=== PATIENT | female | born 1995 | race Caucasian/White ===

== ENCOUNTER 2016-08-07 19:40 | Emergency (ER) | payer MEDICAID ==
[2016-08-07] MEDS ORDERED: Ativan 2 MG/1 ML VIAL IV ONE (20:03)
[2016-08-07] MEDS ORDERED: Sodium Chloride 0.9% 1000 ML 1,000 ML IV STA (20:03)
[2016-08-07] MEDS ORDERED: Sodium Chloride 0.9% 1000 ML 1,000 ML ONE (20:14)
[2016-08-07] MEDS ORDERED: Ativan 2 MG/1 ML VIAL ONE (20:14)
[2016-08-07 20:24] LABS: VBG CARBOXYHEMOGLOBIN 7.6 % T HGB (0.0-6.9); VBG HCO3- 25.5 meq/L (22-28); VBG HEMOGLOBIN 11.6; VBG O2 SATURATION 93.7 (95-100); VBG POTASSIUM 4.3 (3.5-5.1); VBG pH 7.47 (7.32-7.42)
[2016-08-07 20:28] LABS: BASOPHIL % 0.3 % (0.0-0.4); Eosinophil % 2.1 % (0.00-5.0); Granulocytes % 67.7 % (36.0-66.0); Lymphocytes % 23.6 % (24.0-44.0); Mean Cell Volume 80.2 fl (78-100); Mean Platelet Volume 10.9 fl (6-9.5); Monocytes % 6.3 % (0.0-12.0); Platelet Count 235 K/mm3 (150-450); Red Blood Count 4.84 M/mm3 (4.1-5.4); Red Cell Distribution Width 14.4 % (11.5-14.0); White Blood Count 11.7 K/mm3 (4.0-10.5)
[2016-08-07 20:31] LABS: Mean Corpuscular Hemoglobin 24.3 pg (26-32)
[2016-08-07 20:41] LABS: Collection Type CATH
[2016-08-07 20:42] LABS: COMPLETE URINE MICROSCOPIC? NO; Ph 8.5 (5-6)
[2016-08-07 20:54] LABS: ALBUMIN 3.9 g/dL (3.4-5.0); BLOOD UREA NITROGEN 6 mg/dL (9-20); Potassium 4.3 mEq/L (3.5-5.1); SGOT/AST 15 U/L (15-37); SGPT/ALT 8 U/L (12-78)
[2016-08-07 21:08] LABS: ALKALINE PHOSPHATASE 94 U/L (46-116); ANION GAP 16.9 MEQ/L (5-15); BILIRUBIN,TOTAL 0.3 mg/dL (0.2-1.0); CHLORIDE 105 mEq/L (98-107); Carbon Dioxide 22.8 mEq/L (21-32); Glucose 83 MG/DL (70-110); SODIUM 140 mEq/L (136-145); Total Protein 7.6 gm/dL (6.4-8.2)
[2016-08-07 21:32] LABS: ACETAMINOPHEN < 2.0 ug/ml (10-30)
--- NOTE | 2016-08-07 22:57 | ERPHSYRPT ---
- History of Present Illness Time Seen by Provider: 08/07/16 20:03 Source: patient, family (mother) Patient Subjective Stated Complaint: per pt's mother, she was having some anxiety and began staring and not speaking. follows commands. Triage Nursing Assessment: pt opens eyes to voice. follows commands but does not speak. becomes tearful at times and respirations increase. respirations easy at this time. lungs cta. Physician History: CC: anxiety Hx: 20 y/o patient of Dr Mathur. She has young baby at home. She was at home and had spell of anxiety and some staring off into space. She has had similar spells in the past. Here she asked what happened to her. No headache, injury, fever or chills. No chest or abd pain. No V/D. No hx of seizures in the past. Severity: moderate Allergies/Adverse Reactions: Penicillins Allergy (Mild, Verified 08/07/16 20:08) FAMILY IS ALLERGIC questionable allergy parents and brother allergic, has never tried it Home Medications: No Reportable Medications [No Reported Medications] 04/09/16 [History] Hx Tetanus, Diphtheria Vaccination/Date Given: Yes Hx Influenza Vaccination/Date Given: No Hx Pneumococcal Vaccination/Date Given: No Immunizations Up to Date: Yes - Review of Systems Constitutional: No Fever, No Chills Eyes: No Vision Changes Ears, Nose, & Throat: No Symptoms Respiratory: No Cough, No Dyspnea Cardiac: No Chest Pain, No Palpitations, No Syncope Abdominal/Gastrointestinal: No Abdominal Pain, No Nausea, No Vomiting, No Diarrhea Genitourinary Symptoms: No Symptoms Musculoskeletal: No Back Pain, No Neck Pain, No Fall, No Injury Skin: No Rash Neurological: No Dizziness, No Focal Weakness, No Headache, No Parasthesia Psychological: Anxiety, Emotional Lability, No Suicidal Ideations, No Homicidal Ideations All Other Systems: Reviewed and Negative - Past Medical History Pertinent Past Medical History: Yes Neurological History: No Pertinent History ENT History: No Pertinent History Cardiac History: No Pertinent History Respiratory History: No Pertinent History Endocrine Medical History: No Pertinent History Musculoskeletal History: No Pertinent History GI Medical History: No Pertinent History History: No Pertinent History Psycho-Social History: Anxiety Female Reproductive Disorders: No Pertinent History Other Medical History: UTI - Past Surgical History Past Surgical History: Yes Neuro Surgical History: No Pertinent History Cardiac: No Pertinent History Respiratory: No Pertinent History Gastrointestinal: Appendectomy, Cholecystectomy Genitourinary: No Pertinent History Musculoskeletal: No Pertinent History Female Surgical History: Section Other Surgical History: tubes in ears - Social History Smoking Status: Current every day smoker How long have you smoked: YRS Exposure to second hand smoke: No Drug Use: none Patient Lives Alone: No - Female History Hx Last Menstrual Period: 3-4 days ago Hx Now: No - Nursing Vital Signs Nursing Vital Signs: Initial Vital Signs Temperature 98.7 F Temperature Source Oral Pulse Rate 74 Respiratory Rate 18 Blood Pressure 88/55 - Physical Exam General Appearance: alert, other (arrived very anxious. Calmed and is now improved and conversant) Eye Exam: PERRL/EOMI Ears, Nose, Throat Exam: normal ENT inspection, moist mucous membranes Neck Exam: normal inspection, non-tender, supple Respiratory Exam: normal breath sounds, lungs clear Cardiovascular Exam: regular rate/rhythm, No murmur Gastrointestinal/Abdomen Exam: soft, No tenderness, No distention Back Exam: normal inspection Extremity Exam: normal inspection, normal range of motion Neurologic Exam: alert, 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, cooperative, sensation nml, No motor deficits Skin Exam: warm, dry, No rash SpO2 Interpretation: normal SpO2: 98 Oxygen Delivery: Room Air - Course Nursing assessment & vital signs reviewed: Yes EKG Interpreted by Me: RATE (73), Sinus Rhythm, NORMAL AXIS, NORMAL INTERVALS ( [id number]), NORMAL QRS, NORMAL ST-T - CT Exams head CT Interpretation: Negative, Tele-radiologist Report Ordered Tests: Active Orders 24 hr Category Date Time Status Accucheck STAT Care 08/07/16 20:03 Active Belt Operator STAT Care 08/07/16 20:03 Active Cath for Specimen-Straight STAT Care 08/07/16 20:03 Active EKG-ER Only STAT Care 08/07/16 20:03 Active IV Insertion STAT Care 08/07/16 20:03 Active HEAD WITHOUT CONTRAST [CT] Stat Exams 08/07/16 20:04 Taken ACETAMINOPHEN Stat Lab 08/07/16 20:05 Completed CBC W DIFF Stat Lab 08/07/16 20:05 Completed CMP Stat Lab 08/07/16 20:05 Completed HCG,QUALITATIVE URINE Stat Lab 08/07/16 20:20 Completed SALICYLATE Stat Lab 08/07/16 20:05 Completed UA Stat Lab 08/07/16 20:20 Completed Urine Triage Profile Stat Lab 08/07/16 20:20 Completed VENOUS BLOOD GAS Urgent Lab 08/07/16 20:20 Completed Medication Summary Discontinued Medications Generic Name Dose Route Start Last Admin Trade Name Jody PRN Reason Stop Dose Admin Sodium Chloride 1,000 mls @ 999 mls/hr 08/07/16 20:03 08/07/16 20:16 Sodium Chloride 0.9% 1000 Ml IV 08/07/16 21:03 999 mls/hr .Q1H1M STA Administration Sodium Chloride Confirm 08/07/16 20:14 Sodium Chloride 0.9% 1000 Ml Administered 08/07/16 20:15 Dose 1,000 mls @ ud .ROUTE .STK-MED ONE Lorazepam 0.5 mg 08/07/16 20:03 08/07/16 20:16 Ativan 2 Mg/1 Ml Vial IV 08/07/16 20:04 0.5 mg STAT ONE Administration Lorazepam Confirm 08/07/16 20:14 Ativan 2 Mg/1 Ml Vial Administered 08/07/16 20:15 Dose 2 mg .ROUTE .STK-MED ONE Lab/Rad Data: Laboratory Result Diagrams 08/07/16 20:05 08/07/16 20:05 Laboratory Results 08/07/16 08/07/16 08/07/16 Range/Units 20:20 20:20 20:20 WBC (4.0-10.5) K/mm3 RBC (4.1-5.4) M/mm3 Hgb (12.0-16.0) gm/dl Hct (35-47) % MCV (78-100) fl MCH (26-32) pg MCHC (32-36) g/dl RDW (11.5-14.0) % Plt Count (150-450) K/mm3 MPV (6-9.5) fl Gran % (36.0-66.0) % Lymphocytes % (24.0-44.0) % Monocytes % (0.0-12.0) % Eosinophils % (0.00-5.0) % Basophils % (0.0-0.4) % Basophils # (0-0.4) VBG pH 7.47 H (7.32-7.42) VBG pCO2 at Pat Temp 35 L (42-55) mm/Hg VBG pO2 at Pat Temp 55 H (25-40) mm/Hg VBG HCO3 25.5 (22-28) meq/L VBG O2 Sat (Brittani) 93.7 L (95-100) VBG Base Excess 2.0 (-2.0-2.0) VBG Hemoglobin 11.6 VBG Carboxyhemoglobin 7.6 H* (0.0-6.9) % T HGB POC Potassium 4.3 (3.5-5.1) Sodium (136-145) mEq/L Potassium (3.5-5.1) mEq/L Chloride (98-107) mEq/L Carbon Dioxide (21-32) mEq/L Anion Gap (5-15) MEQ/L BUN (9-20) mg/dL Creatinine (0.55-1.30) mg/dl Estimated GFR ML/MIN Glucose (70-110) MG/DL Calcium (8.5-10.1) mg/dL Total Bilirubin (0.2-1.0) mg/dL AST (15-37) U/L ALT (12-78) U/L Alkaline Phosphatase (46-116) U/L Serum Total Protein (6.4-8.2) gm/dL Albumin (3.4-5.0) g/dL Ur Collection Type Urine Color (YELLOW) Urine Appearance (CLEAR) Urine pH (5-6) Ur Specific [place] (1.005-1.025) Urine Protein (Negative) Urine Glucose (UA) (NEGATIVE) mg/dL Urine Ketones (NEGATIVE) Urine Nitrite (NEGATIVE) Urine Bilirubin (NEGATIVE) Urine Urobilinogen (0-1) mg/dL Urine WBC (Auto) (NEGATIVE) Urine RBC (Auto) (0-5) Alexis/ul Urine HCG, Qual NEGATIVE (Negative) Salicylates (2.8-20.0) mg/dl Urine Opiates Level NEG. (NEGATIVE) Ur Methadone NEG. (NEGATIVE) Acetaminophen (10-30) ug/ml Urine Barbiturates NEG. (NEGATIVE) Ur Phencyclidine (PCP) NEG. (NEGATIVE) Urine Amphetamine NEG. (NEGATIVE) U Benzodiazepine Level NEG. (NEGATIVE) Urine Cocaine NEG. (NEGATIVE) Urine Marijuana (THC) NEG. (NEGATIVE) Specimen Received 08/07/16 08/07/16 08/07/16 Range/Units 20:20 20:05 20:05 WBC 11.7 H (4.0-10.5) K/mm3 RBC 4.84 (4.1-5.4) M/mm3 Hgb 11.8 L (12.0-16.0) gm/dl Hct 38.8 (35-47) % MCV 80.2 (78-100) fl MCH 24.3 L (26-32) pg MCHC 30.4 L (32-36) g/dl RDW 14.4 H (11.5-14.0) % Plt Count 235 (150-450) K/mm3 MPV 10.9 H (6-9.5) fl Gran % 67.7 H (36.0-66.0) % Lymphocytes % 23.6 L (24.0-44.0) % Monocytes % 6.3 (0.0-12.0) % Eosinophils % 2.1 (0.00-5.0) % Basophils % 0.3 (0.0-0.4) % Basophils # 0.03 (0-0.4) VBG pH (7.32-7.42) VBG pCO2 at Pat Temp (42-55) mm/Hg VBG pO2 at Pat Temp (25-40) mm/Hg VBG HCO3 (22-28) meq/L VBG O2 Sat (Brittani) (95-100) VBG Base Excess (-2.0-2.0) VBG Hemoglobin VBG Carboxyhemoglobin (0.0-6.9) % T HGB POC Potassium (3.5-5.1) Sodium 140 (136-145) mEq/L Potassium 4.3 (3.5-5.1) mEq/L Chloride 105 (98-107) mEq/L Carbon Dioxide 22.8 (21-32) mEq/L Anion Gap 16.9 H (5-15) MEQ/L BUN 6 L (9-20) mg/dL Creatinine 0.58 (0.55-1.30) mg/dl Estimated GFR > 60 ML/MIN Glucose 83 (70-110) MG/DL Calcium 9.0 (8.5-10.1) mg/dL Total Bilirubin 0.3 (0.2-1.0) mg/dL AST 15 (15-37) U/L ALT 8 L (12-78) U/L Alkaline Phosphatase 94 (46-116) U/L Serum Total Protein 7.6 (6.4-8.2) gm/dL Albumin 3.9 (3.4-5.0) g/dL Ur Collection Type CATH Urine Color YELLOW (YELLOW) Urine Appearance CLOUDY (CLEAR) Urine pH 8.5 (5-6) Ur Specific [place] 1.020 (1.005-1.025) Urine Protein NEGATIVE (Negative) Urine Glucose (UA) NEGATIVE (NEGATIVE) mg/dL Urine Ketones NEGATIVE (NEGATIVE) Urine Nitrite NEGATIVE (NEGATIVE) Urine Bilirubin NEGATIVE (NEGATIVE) Urine Urobilinogen 1 (0-1) mg/dL Urine WBC (Auto) NEGATIVE (NEGATIVE) Urine RBC (Auto) NEGATIVE (0-5) Alexis/ul Urine HCG, Qual (Negative) Salicylates < 2.8 L (2.8-20.0) mg/dl Urine Opiates Level (NEGATIVE) Ur Methadone (NEGATIVE) Acetaminophen < 2.0 L (10-30) ug/ml Urine Barbiturates (NEGATIVE) Ur Phencyclidine (PCP) (NEGATIVE) Urine Amphetamine (NEGATIVE) U Benzodiazepine Level (NEGATIVE) Urine Cocaine (NEGATIVE) Urine Marijuana (THC) (NEGATIVE) Specimen Received 08/07/16 2030 - Progress Progress Note: 08/07/16 22:55 Pt was given IVF bolus and ativan. She calmed. States she aches all over. No focal problems. Uncertain if anxiety or seizure but seems likely anxiety. Will release to follow with Dr Mathur and her mother will stay with her and baby. Seizure instructions given. Counseled pt/family regarding: lab results, diagnosis, need for follow-up, rad results - Departure Time of Disposition: 22:56 Departure Disposition: Home Clinical Impression: Anxiety, rule out seizure Condition: Fair Critical Care Time: No Referrals: RAHEEL MATHUR [Primary Care Provider] - Instructions: Anxiety -- Adult, Seizure (Not Epilepsy/Seizure Disorder) Additional Instructions: No driving, climbing, swimming. Someone to stay with you and to care for your baby. Call tomorrow for Dr Mathur follow up. REturn for problems or concerns.
[2016-08-07 23:06] VITALS: PULSE 69
[2016-08-07 23:08] VITALS: BP 106/70; O2SAT 100
--- NOTE | 2016-08-08 09:59 | XRAY ---
Indication: Left-sided headache and altered mental status. Multiple contiguous axial images obtained through the head without contrast. Comparison: None Normal appearing brain parenchyma, ventricles, and bony calvarium. Visualized paranasal sinuses and mastoid air cells are pneumatized and clear. Impression: Normal CT head without contrast exam. CT DI is 71.05
== END 2016-08-07 23:12 | disposition home or self-care (01) ==
LOC: ED 19:40
DX: F41.9 Anxiety disorder, unspecified (principal)
CPT/HCPCS: 36000; 36415; 70450; 80053; 80307; 81002; 82805; 82962; 84703; 85025; 93005; 93041; 96360; 96374; 99284; J2060; P9612

== ENCOUNTER 2017-04-07 14:32 | Emergency (ER) | payer SELFPAY ==
[2017-04-07] MEDS ORDERED: Sodium Chloride 0.9% 1000 ML 1,000 ML IV STA (14:48)
[2017-04-07] MEDS ORDERED: Vistaril 50 MG/ML IM ONE ×3 (14:48→15:10)
--- NOTE | 2017-04-07 14:52 | ERPHSYRPT ---
- History of Present Illness Time Seen by Provider: 04/07/17 14:37 Source: patient Patient Subjective Stated Complaint: "I started having cp yesterday. it is sharp and comes and goes. it is on the right side on my chest. i have a hx of slow hr and anxiety." Triage Nursing Assessment: aox3, breathing easy unlabored, skin pink warm dry, steady gait Physician History: CC: chest pain Hx: Sharp chest pain. Not short of breath. Some tingling in extr. A lot of stress with job, finances. Prior hx anxiety. No hx of heart disease or VTE disease. LMp one week ago. No N/V/D. No abd pain. Timing/Duration: yesterday Severity: moderate Allergies/Adverse Reactions: Penicillins Allergy (Mild, Verified 04/07/17 14:45) FAMILY IS ALLERGIC questionable allergy parents and brother allergic, has never tried it Home Medications: Sertraline HCl [Zoloft] 25 mg PO DAILY 04/07/17 [History] Hx Tetanus, Diphtheria Vaccination/Date Given: Yes Hx Influenza Vaccination/Date Given: No Hx Pneumococcal Vaccination/Date Given: No - Review of Systems Constitutional: No Fever, No Chills Eyes: No Symptoms Ears, Nose, & Throat: No Symptoms Respiratory: No Cough, No Dyspnea Cardiac: Chest Pain, No Palpitations, No Syncope Abdominal/Gastrointestinal: No Abdominal Pain, No Nausea, No Vomiting, No Diarrhea Genitourinary Symptoms: No Dysuria Skin: No Rash Neurological: Parasthesia (in extremities), No Headache All Other Systems: Reviewed and Negative - Past Medical History Pertinent Past Medical History: Yes Neurological History: No Pertinent History ENT History: No Pertinent History Cardiac History: No Pertinent History Respiratory History: No Pertinent History Endocrine Medical History: No Pertinent History Musculoskeletal History: No Pertinent History GI Medical History: No Pertinent History History: No Pertinent History Psycho-Social History: Anxiety Female Reproductive Disorders: No Pertinent History Other Medical History: UTI - Past Surgical History Past Surgical History: Yes Neuro Surgical History: No Pertinent History Cardiac: No Pertinent History Respiratory: No Pertinent History Gastrointestinal: Appendectomy, Cholecystectomy Genitourinary: No Pertinent History Musculoskeletal: No Pertinent History Female Surgical History: Section Other Surgical History: tubes in ears - Social History Smoking Status: Current every day smoker How long have you smoked: YRS Exposure to second hand smoke: No Drug Use: none Patient Lives Alone: No - Female History Hx Last Menstrual Period: 03/31/17 Hx Now: No - Nursing Vital Signs Nursing Vital Signs: Initial Vital Signs Pulse Rate 70 04/07/17 14:40 Respiratory Rate 12 04/07/17 14:40 Blood Pressure 115/63 04/07/17 14:40 O2 Sat by Pulse Oximetry 97 04/07/17 14:40 Pain Scale Pain Intensity 6 - Physical Exam General Appearance: alert, thin Eye Exam: PERRL/EOMI Ears, Nose, Throat Exam: normal ENT inspection, moist mucous membranes Neck Exam: normal inspection, non-tender, supple Respiratory Exam: normal breath sounds, lungs clear Cardiovascular Exam: regular rate/rhythm, No murmur, No friction rub, No gallop Gastrointestinal/Abdomen Exam: soft, No tenderness, No distention Back Exam: normal inspection, normal range of motion Extremity Exam: normal inspection, normal range of motion Neurologic Exam: alert, 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, cooperative, sensation nml, No motor deficits Skin Exam: warm, dry, No rash SpO2 Interpretation: normal SpO2: 97 Oxygen Delivery: Room Air - Course Nursing assessment & vital signs reviewed: Yes EKG Interpreted by Me: RATE (77), Sinus Rhythm, NORMAL AXIS, NORMAL INTERVALS ( QTc 421), NORMAL QRS, NORMAL ST-T - Radiology Exams cxr X-ray Interpretation: Reviewed by me, Negative Ordered Tests: Active Orders 24 hr Category Date Time Status Science Education Professor STAT Care 04/07/17 14:49 Active Clean Catch Urine Specimen STAT Care 04/07/17 14:48 Active EKG-ER Only STAT Care 04/07/17 14:48 Active IV Insertion STAT Care 04/07/17 14:48 Active CHEST 2 VIEWS (PA AND LAT) Stat Exams 04/07/17 14:49 Taken CBC W DIFF Stat Lab 04/07/17 14:35 Completed CMP Stat Lab 04/07/17 14:35 Completed HCG QUALITATIVE,SERUM Stat Lab 04/07/17 14:35 Completed UA W/RFX UR CULTURE Stat Lab 04/07/17 15:56 Completed Urine Triage Profile Stat Lab 04/07/17 15:56 Completed Medication Summary Discontinued Medications Generic Name Dose Route Start Last Admin Trade Name Freq PRN Reason Stop Dose Admin Hydroxyzine HCl 50 mg 04/07/17 14:48 04/07/17 15:25 Vistaril 50 Mg/Ml IM 04/07/17 14:49 50 mg STAT ONE Administration Hydroxyzine HCl Confirm 04/07/17 14:58 Vistaril 50 Mg/Ml Administered 04/07/17 14:59 Dose 50 mg IM .STK-MED ONE Hydroxyzine HCl Confirm 04/07/17 15:10 Vistaril 50 Mg/Ml Administered 04/07/17 15:11 Dose 50 mg IM .STK-MED ONE Sodium Chloride 1,000 mls @ 999 mls/hr 04/07/17 14:48 04/07/17 15:25 Sodium Chloride 0.9% 1000 Ml IV 04/07/17 15:48 999 mls/hr .Q1H1M STA Administration Sodium Chloride Confirm 04/07/17 14:58 Sodium Chloride 0.9% 1000 Ml Administered 04/07/17 14:59 Dose 1,000 mls @ ud .ROUTE .STK-MED ONE Sodium Chloride Confirm 04/07/17 15:10 Sodium Chloride 0.9% 1000 Ml Administered 04/07/17 15:11 Dose 1,000 mls @ ud .ROUTE .STK-MED ONE Lab/Rad Data: Laboratory Result Diagrams 04/07/17 14:35 04/07/17 14:35 Laboratory Results 04/07/17 04/07/17 04/07/17 Range/Units 15:56 15:56 14:35 WBC (4.0-10.5) K/mm3 RBC (4.1-5.4) M/mm3 Hgb (12.0-16.0) gm/dl Hct (35-47) % MCV (78-100) fl MCH (26-32) pg MCHC (32-36) g/dl RDW (11.5-14.0) % Plt Count (150-450) K/mm3 MPV (6-9.5) fl Gran % (36.0-66.0) % Lymphocytes % (24.0-44.0) % Monocytes % (0.0-12.0) % Eosinophils % (0.00-5.0) % Basophils % (0.0-0.4) % Basophils # (0-0.4) Sodium (136-145) mEq/L Potassium (3.5-5.1) mEq/L Chloride (98-107) mEq/L Carbon Dioxide (21-32) mEq/L Anion Gap (5-15) MEQ/L BUN (9-20) mg/dL Creatinine (0.55-1.30) mg/dl Estimated GFR ML/MIN Glucose (70-110) MG/DL Calcium (8.5-10.1) mg/dL Total Bilirubin (0.2-1.0) mg/dL AST (15-37) U/L ALT (12-78) U/L Alkaline Phosphatase (46-116) U/L Serum Total Protein (6.4-8.2) gm/dL Albumin (3.4-5.0) g/dL Serum , Qual NEGATIVE (Negative) Ur Collection Type CLEAN CATCH Urine Color YELLOW (YELLOW) Urine Appearance CLEAR (CLEAR) Urine pH 7.5 (5-6) Ur Specific [place] 1.005 (1.005-1.025) Urine Protein NEGATIVE (Negative) Urine Ketones NEGATIVE (NEGATIVE) Urine Blood NEGATIVE (0-5) Alexis/ul Urine Nitrite NEGATIVE (NEGATIVE) Urine Bilirubin NEGATIVE (NEGATIVE) Urine Urobilinogen 4 (0-1) mg/dL Ur Leukocyte Esterase NEGATIVE (NEGATIVE) Urine Glucose NEGATIVE (NEGATIVE) mg/dL Urine Opiates Level NEG. (NEGATIVE) Ur Methadone NEG. (NEGATIVE) Urine Barbiturates NEG. (NEGATIVE) Ur Phencyclidine (PCP) NEG. (NEGATIVE) Urine Amphetamine NEG. (NEGATIVE) U Benzodiazepine Level NEG. (NEGATIVE) Urine Cocaine NEG. (NEGATIVE) Urine Marijuana (THC) POS. (NEGATIVE) Specimen Received 04/07/17 1500 04/07/17 04/07/17 Range/Units 14:35 14:35 WBC 11.6 H (4.0-10.5) K/mm3 RBC 4.74 (4.1-5.4) M/mm3 Hgb 13.0 (12.0-16.0) gm/dl Hct 40.8 (35-47) % MCV 86.1 (78-100) fl MCH 27.4 (26-32) pg MCHC 31.9 L (32-36) g/dl RDW 14.8 H (11.5-14.0) % Plt Count 242 (150-450) K/mm3 MPV 10.8 H (6-9.5) fl Gran % 65.3 (36.0-66.0) % Lymphocytes % 19.3 L (24.0-44.0) % Monocytes % 6.7 (0.0-12.0) % Eosinophils % 8.3 H (0.00-5.0) % Basophils % 0.4 (0.0-0.4) % Basophils # 0.05 (0-0.4) Sodium 136 (136-145) mEq/L Potassium 4.0 (3.5-5.1) mEq/L Chloride 104 (98-107) mEq/L Carbon Dioxide 23.8 (21-32) mEq/L Anion Gap 12.6 (5-15) MEQ/L BUN 6 L (9-20) mg/dL Creatinine 0.80 (0.55-1.30) mg/dl Estimated GFR > 60 ML/MIN Glucose 102 (70-110) MG/DL Calcium 9.2 (8.5-10.1) mg/dL Total Bilirubin 0.50 (0.2-1.0) mg/dL AST 10 L (15-37) U/L ALT 10 L (12-78) U/L Alkaline Phosphatase 87 (46-116) U/L Serum Total Protein 7.3 (6.4-8.2) gm/dL Albumin 4.1 (3.4-5.0) g/dL Serum , Qual (Negative) Ur Collection Type Urine Color (YELLOW) Urine Appearance (CLEAR) Urine pH (5-6) Ur Specific [place] (1.005-1.025) Urine Protein (Negative) Urine Ketones (NEGATIVE) Urine Blood (0-5) Alexis/ul Urine Nitrite (NEGATIVE) Urine Bilirubin (NEGATIVE) Urine Urobilinogen (0-1) mg/dL Ur Leukocyte Esterase (NEGATIVE) Urine Glucose (NEGATIVE) mg/dL Urine Opiates Level (NEGATIVE) Ur Methadone (NEGATIVE) Urine Barbiturates (NEGATIVE) Ur Phencyclidine (PCP) (NEGATIVE) Urine Amphetamine (NEGATIVE) U Benzodiazepine Level (NEGATIVE) Urine Cocaine (NEGATIVE) Urine Marijuana (THC) (NEGATIVE) Specimen Received - Progress Progress Note: 04/07/17 14:52 PERC negative. 04/07/17 16:12 She feels some better. She has some degree of anxiety. Advised follow up with Dr Mathur. Rx hydroxzyzine as needed. Counseled pt/family regarding: lab results, diagnosis, need for follow-up, rad results - Departure Time of Disposition: 16:13 Departure Disposition: Home Clinical Impression: Anxiety Chest pain Qualifiers: Chest pain type: other chest pain Qualified Code(s): R07.89 - Other chest pain ; R07.8 - Other chest pain Condition: Stable Critical Care Time: No Referrals: RAHEEL MATHUR [Primary Care Provider] - Instructions: Atypical Chest Pain, Anxiety -- Adult Additional Instructions: No driving today. Rx hydroxyzine for anxiety. Follow up this week with Dr Mathur. Ibuprofen if needed for discomfort. Prescriptions: Hydroxyzine HCl 25 mg [Atarax 25 mg] 25 mg PO Q6H PRN PRN #14 tablet PRN Reason: rest/anxiety
[2017-04-07] MEDS ORDERED: Sodium Chloride 0.9% 1000 ML 0 ML ONE (14:58)
[2017-04-07 15:05] LABS: BASOPHIL % 0.4 % (0.0-0.4); Eosinophil % 8.3 % (0.00-5.0); Granulocytes % 65.3 % (36.0-66.0); Lymphocytes % 19.3 % (24.0-44.0); Mean Cell Volume 86.1 fl (78-100); Mean Corpuscular Hemoglobin 27.4 pg (26-32); Mean Platelet Volume 10.8 fl (6-9.5); Monocytes % 6.7 % (0.0-12.0); Platelet Count 242 K/mm3 (150-450); Red Blood Count 4.74 M/mm3 (4.1-5.4); Red Cell Distribution Width 14.8 % (11.5-14.0); White Blood Count 11.6 K/mm3 (4.0-10.5)
[2017-04-07] MEDS ORDERED: Sodium Chloride 0.9% 1000 ML 1,000 ML ONE (15:10)
[2017-04-07 15:25] LABS: ALBUMIN 4.1 g/dL (3.4-5.0); ALKALINE PHOSPHATASE 87 U/L (46-116); ANION GAP 12.6 MEQ/L (5-15); BLOOD UREA NITROGEN 6 mg/dL (9-20); CHLORIDE 104 mEq/L (98-107); Carbon Dioxide 23.8 mEq/L (21-32); Glucose 102 MG/DL (70-110); SGOT/AST 10 U/L (15-37); SGPT/ALT 10 U/L (12-78); SODIUM 136 mEq/L (136-145); Total Protein 7.3 gm/dL (6.4-8.2)
[2017-04-07 15:57] VITALS: BP 112/84; PULSE 60
[2017-04-07 16:08] LABS: Collection Type CLEAN CATCH
[2017-04-07 16:09] LABS: ADD URINE CULTURE? NO (NO); Bilirubin NEGATIVE (NEGATIVE); Blood NEGATIVE Ery/ul (0-5); COMPLETE URINE MICROSCOPIC? NO; Glucose NEGATIVE (NEGATIVE); Leukocyte Esterase NEGATIVE (NEGATIVE)
[2017-04-07 16:15] VITALS: O2SAT 97
--- NOTE | 2017-04-07 21:20 | XRAY ---
Indication: Chest pain. Comparison: October 31, 2012. PA/lateral chest demonstrates normal heart, lungs, and bony thorax.
== END 2017-04-07 16:19 | disposition home or self-care (01) ==
LOC: ED 14:32
DX: F41.9 Anxiety disorder, unspecified (principal); R07.89 Other chest pain
CPT/HCPCS: 36000; 36415; 71020; 80053; 80307; 81002; 84703; 85025; 93005; 93041; 96360; 96372; 99284; 99285; J3410

== ENCOUNTER 2017-05-09 21:55 | Emergency (ER) | payer SELFPAY ==
--- NOTE | 2017-05-09 22:27 | ERPHSYRPT ---
- History of Present Illness Time Seen by Provider: 05/09/17 22:27 Source: patient Exam Limitations: no limitations Patient Subjective Stated Complaint: pt states she has been having lower back pain and "pregnacy symptoms" for a few weeks. states she has tenderness in her breasts, lack of energy, increased urination, and no period last month. states she has had a mirena for 1 year with no Triage Nursing Assessment: pt alert and oreinted, asnwers questions approp. pt ambulatory with steady gait noted. respirations nonlabored with lungs cta. pt reports tenderness to lower back with light palpation, worse on lt. abd soft and nontender, bowel sounds present x4 quads. Physician History: 21-year-old female came to the emergency room with complaining of low back pain , breast tenderness, nausea and abdominal discomfort. She fell like she might be . Denies any other symptoms. Timing/Duration: week(s) Allergies/Adverse Reactions: Penicillins Allergy (Mild, Verified 04/07/17 14:45) FAMILY IS ALLERGIC questionable allergy parents and brother allergic, has never tried it Home Medications: Sertraline HCl [Zoloft] 25 mg PO DAILY 04/07/17 [History] Hx Tetanus, Diphtheria Vaccination/Date Given: Yes Hx Influenza Vaccination/Date Given: No Hx Pneumococcal Vaccination/Date Given: No Immunizations Up to Date: Yes - Review of Systems Constitutional: No Fever, No Chills Eyes: No Symptoms Ears, Nose, & Throat: No Symptoms Respiratory: No Cough, No Dyspnea Cardiac: No Chest Pain, No Edema, No Syncope Abdominal/Gastrointestinal: Nausea, No Abdominal Pain, No Vomiting, No Diarrhea Genitourinary Symptoms: No Dysuria, No Flank Pain, No Menorrhagia, No Vaginal Bleeding, No Vaginal Discharge, No Vaginal Itching Musculoskeletal: Back Pain, No Neck Pain Skin: No Rash Neurological: No Dizziness, No Focal Weakness, No Sensory Changes Psychological: No Symptoms Endocrine: No Symptoms All Other Systems: Reviewed and Negative - Past Medical History Pertinent Past Medical History: Yes Neurological History: No Pertinent History ENT History: No Pertinent History Cardiac History: No Pertinent History Respiratory History: No Pertinent History Endocrine Medical History: No Pertinent History Musculoskeletal History: No Pertinent History GI Medical History: No Pertinent History History: No Pertinent History Psycho-Social History: Anxiety Female Reproductive Disorders: No Pertinent History Other Medical History: UTI - Past Surgical History Past Surgical History: Yes Neuro Surgical History: No Pertinent History Cardiac: No Pertinent History Respiratory: No Pertinent History Gastrointestinal: Appendectomy, Cholecystectomy Genitourinary: No Pertinent History Musculoskeletal: No Pertinent History Female Surgical History: Section Other Surgical History: tubes in ears - Social History Smoking Status: Current every day smoker How long have you smoked: YRS Exposure to second hand smoke: No Drug Use: none Patient Lives Alone: No - Female History Hx Last Menstrual Period: march Hx Now: No - Nursing Vital Signs Nursing Vital Signs: Initial Vital Signs Temperature 98.1 F 05/09/17 22:03 Pulse Rate 93 H 05/09/17 22:03 Respiratory Rate 18 05/09/17 22:03 Blood Pressure 118/68 05/09/17 22:03 O2 Sat by Pulse Oximetry 99 05/09/17 22:03 Pain Scale Pain Intensity [Lower Back] 4 Pain Intensity 4 - Physical Exam General Appearance: no apparent distress, alert Eye Exam: PERRL/EOMI, eyes nml inspection Neck Exam: normal inspection, non-tender, supple, full range of motion, No meningismus, No midline tenderness Respiratory Exam: normal breath sounds, lungs clear, No respiratory distress Cardiovascular Exam: regular rate/rhythm, normal heart sounds Gastrointestinal Exam: soft, No tenderness, No mass Extremity Exam: normal inspection, normal range of motion, No calf tenderness, No pedal edema Neurologic Exam: alert, 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, cooperative, 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 tested, normal mood/affect, nml station & gait, sensation nml, No motor deficits Skin Exam: normal color, warm, dry, No rash SpO2: 99 Oxygen Delivery: Room Air - Course Nursing assessment & vital signs reviewed: Yes Ordered Tests: Active Orders 24 hr Category Date Time Status HCG,QUALITATIVE URINE Stat Lab 05/09/17 22:56 Completed UA W/RFX UR CULTURE Stat Lab 05/09/17 22:56 Completed Urine Triage Profile Stat Lab 05/09/17 22:56 Received Lab/Rad Data: Laboratory Results 05/09/17 05/09/17 Range/Units 22:56 22:56 Ur Collection Type CLEAN CATCH Urine Color YELLOW (YELLOW) Urine Appearance CLEAR (CLEAR) Urine pH 5.0 (5-6) Ur Specific [place] 1.010 (1.005-1.025) Urine Protein NEGATIVE (Negative) Urine Ketones NEGATIVE (NEGATIVE) Urine Blood NEGATIVE (0-5) Alexis/ul Urine Nitrite NEGATIVE (NEGATIVE) Urine Bilirubin NEGATIVE (NEGATIVE) Urine Urobilinogen NORMAL (0-1) mg/dL Ur Leukocyte Esterase NEGATIVE (NEGATIVE) Urine Culture Reflexed NO (NO) Urine Glucose NEGATIVE (NEGATIVE) mg/dL Urine HCG, Qual NEGATIVE (Negative) Specimen Received [id number] - Progress Progress: unchanged Counseled pt/family regarding: lab results, diagnosis, need for follow-up - Departure Time of Disposition: 23:00 Departure Disposition: Home Clinical Impression: Back pain Qualifiers: Back pain location: low back pain Chronicity: unspecified Back pain laterality : unspecified Sciatica presence: without sciatica Qualified Code(s): M54.5 - Low back pain Condition: Stable Critical Care Time: No Referrals: RAHEEL KRISHNAMURTHY [Primary Care Provider] - Instructions: Low Back Pain
[2017-05-09 22:57] LABS: ADD URINE CULTURE? NO (NO); Bilirubin NEGATIVE (NEGATIVE); Blood NEGATIVE Ery/ul (0-5); COMPLETE URINE MICROSCOPIC? NO; Collection Type CLEAN CATCH; Glucose NEGATIVE (NEGATIVE); Leukocyte Esterase NEGATIVE (NEGATIVE)
[2017-05-09 23:11] VITALS: BP 110/65; PULSE 78; O2SAT 98
== END 2017-05-09 23:11 | disposition home or self-care (01) ==
LOC: ED 21:55
DX: M54.5 Low back pain (principal); N64.4 Mastodynia; R11.10 Vomiting, unspecified; R10.9 Unspecified abdominal pain
CPT/HCPCS: 80307; 81002; 84703; 99282

== ENCOUNTER 2017-07-25 13:21 | Emergency (ER) | payer OTHER ==
[2017-07-25 13:38] VITALS: O2SAT 98
[2017-07-25] MEDS ORDERED: Sodium Chloride 0.9% 1000 ML 1,000 ML IV STA (13:39)
[2017-07-25] MEDS ORDERED: TORAdol 30 mg Injection IV ONE (13:39)
[2017-07-25] MEDS ORDERED: Zofran 4 MG/2 ML VIAL IV ONE (13:39)
[2017-07-25] MEDS ORDERED: Zofran 4 MG/2 ML VIAL ONE (13:42)
[2017-07-25] MEDS ORDERED: Sodium Chloride 0.9% 1000 ML 1,000 ML ONE (13:42)
[2017-07-25] MEDS ORDERED: TORAdol 30 mg Injection ONE (13:42)
--- NOTE | 2017-07-25 13:44 | ERPHSYRPT ---
- History of Present Illness Time Seen by Provider: 07/25/17 13:32 Historian: patient Exam Limitations: no limitations Patient Subjective Stated Complaint: right sided pain radiating into back and abdomen, nausea, vomitting Triage Nursing Assessment: patient ambulates by self, gait is steady, alert and oriented x3, lung sounds crackles , pupils perrla3, skin warm dry and intact, , pulses equal bilateral radius, bowel sounds present x4 Physician History: 21 y/o female comes to the ER with complaints of right flank pain that started 2 days ago. Pt describes the pain as sharp, constant, 6/10, and pt has not taken any pain meds. Pt also admits to having one episode of nausea and vomiting. Pt also states she has been having polyuria. Pt also admits to cough and congestion. Pt denies any fever, chills, diarrhea, constipation, dysuria or urinary incontinence. Timing/Duration: yesterday Activities at Onset: none Quality: sharpness Abdominal Pain Onset Location: flank Pain Radiation: no radiation Severity of Pain-Max: moderate Severity of Pain-Current: moderate Modifying Factors: Improves With: coughing, vomiting Associated Symptoms: nausea, vomiting Allergies/Adverse Reactions: Penicillins Allergy (Mild, Verified 04/07/17 14:45) FAMILY IS ALLERGIC questionable allergy parents and brother allergic, has never tried it Home Medications: Sertraline HCl [Zoloft] 25 mg PO DAILY 04/07/17 [History] Hx Tetanus, Diphtheria Vaccination/Date Given: Yes Hx Influenza Vaccination/Date Given: No Hx Pneumococcal Vaccination/Date Given: No Immunizations Up to Date: Yes - Review of Systems Constitutional: Weakness, No Fever, No Chills Eyes: No Symptoms Ears, Nose, & Throat: No Symptoms Respiratory: Cough, No Dyspnea Cardiac: No Chest Pain, No Edema, No Syncope Abdominal/Gastrointestinal: Abdominal Pain, Nausea, Vomiting, No Diarrhea Genitourinary Symptoms: Frequency, No Dysuria Musculoskeletal: No Back Pain, No Neck Pain Skin: No Rash Neurological: No Dizziness, No Focal Weakness, No Sensory Changes Psychological: No Symptoms Endocrine: No Symptoms All Other Systems: Reviewed and Negative - Past Medical History Pertinent Past Medical History: Yes Neurological History: No Pertinent History ENT History: No Pertinent History Cardiac History: No Pertinent History Respiratory History: No Pertinent History Endocrine Medical History: No Pertinent History Musculoskeletal History: No Pertinent History GI Medical History: No Pertinent History History: No Pertinent History Psycho-Social History: Anxiety Female Reproductive Disorders: No Pertinent History Other Medical History: UTI - Past Surgical History Past Surgical History: Yes Neuro Surgical History: No Pertinent History Cardiac: No Pertinent History Respiratory: No Pertinent History Gastrointestinal: Appendectomy, Cholecystectomy Genitourinary: No Pertinent History Musculoskeletal: No Pertinent History Female Surgical History: Section Other Surgical History: tubes in ears - Social History Smoking Status: Current every day smoker How long have you smoked: YRS Exposure to second hand smoke: No Drug Use: none Patient Lives Alone: No - Female History Hx Now: (merena iud) - Nursing Vital Signs Nursing Vital Signs: Initial Vital Signs Temperature 97.9 F 07/25/17 13:22 Pulse Rate 81 07/25/17 13:22 Respiratory Rate 20 07/25/17 13:22 O2 Sat by Pulse Oximetry 98 07/25/17 13:22 Pain Scale Pain Intensity 4 - Physical Exam General Appearance: mild distress, alert Eye Exam: PERRL/EOMI, eyes nml inspection Ears, Nose, Throat Exam: normal ENT inspection, pharynx normal, moist mucous membranes, dry mucous membranes Neck Exam: normal inspection, non-tender, supple, full range of motion Respiratory Exam: rhonchi, No respiratory distress Cardiovascular Exam: regular rate/rhythm, normal heart sounds Gastrointestinal/Abdomen Exam: soft, No tenderness, No mass Back Exam: normal inspection, normal range of motion, CVA tenderness, No vertebral tenderness Extremity Exam: normal inspection, normal range of motion, pelvis stable Neurologic Exam: alert, 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, cooperative, normal mood/affect, nml cerebellar function, sensation nml, No motor deficits Skin Exam: normal color, warm, dry SpO2: 98 Oxygen Delivery: Room Air - Course Nursing assessment & vital signs reviewed: Yes Ordered Tests: Active Orders 24 hr Category Date Time Status IV Insertion STAT Care 07/25/17 13:39 Active ABDOMEN AND PELVIS W/0 CONTRAS [CT] Stat Exams 07/25/17 13:39 Completed CHEST 2 VIEWS (PA AND LAT) Stat Exams 07/25/17 13:39 Taken AMYLASE Stat Lab 07/25/17 13:35 Completed BLOOD CULTURE Stat Lab 07/25/17 13:45 Received CBC W DIFF Stat Lab 07/25/17 13:35 Completed CMP Stat Lab 07/25/17 13:35 Completed CULTURE,URINE Stat Lab 07/25/17 13:45 Received HCG QUALITATIVE,SERUM Stat Lab 07/25/17 13:35 Completed LIPASE Stat Lab 07/25/17 13:35 Completed UA W/ MICROSCOPIC Stat Lab 07/25/17 13:45 Completed Medication Summary Discontinued Medications Generic Name Dose Route Start Last Admin Trade Name Costaq PRN Reason Stop Dose Admin Sodium Chloride 1,000 mls @ 999 mls/hr 07/25/17 13:39 07/25/17 13:45 Sodium Chloride 0.9% 1000 Ml IV 07/25/17 14:39 999 mls/hr .Q1H1M STA Administration Sodium Chloride Confirm 07/25/17 13:42 Sodium Chloride 0.9% 1000 Ml Administered 07/25/17 13:43 Dose 1,000 mls @ ud .ROUTE .STK-MED ONE Ketorolac Tromethamine 30 mg 07/25/17 13:39 07/25/17 13:44 Toradol 30 Mg Injection IV 07/25/17 13:40 30 mg STAT ONE Administration Ketorolac Tromethamine Confirm 07/25/17 13:42 Toradol 30 Mg Injection Administered 07/25/17 13:43 Dose 30 mg .ROUTE .STK-MED ONE Ondansetron HCl 4 mg 07/25/17 13:39 07/25/17 13:44 Zofran 4 Mg/2 Ml Vial IV 07/25/17 13:40 4 mg STAT ONE Administration Ondansetron HCl Confirm 07/25/17 13:42 Zofran 4 Mg/2 Ml Vial Administered 07/25/17 13:43 Dose 4 mg .ROUTE .STK-MED ONE Lab/Rad Data: Laboratory Result Diagrams 07/25/17 13:35 07/25/17 13:35 Laboratory Results 07/25/17 07/25/17 07/25/17 Range/Units 13:45 13:35 13:35 WBC (4.0-10.5) K/mm3 RBC (4.1-5.4) M/mm3 Hgb (12.0-16.0) gm/dl Hct (35-47) % MCV (78-100) fl MCH (26-32) pg MCHC (32-36) g/dl RDW (11.5-14.0) % Plt Count (150-450) K/mm3 MPV (6-9.5) fl Gran % (36.0-66.0) % Lymphocytes % (24.0-44.0) % Monocytes % (0.0-12.0) % Eosinophils % (0.00-5.0) % Basophils % (0.0-0.4) % Basophils # (0-0.4) Sodium 137 (136-145) mEq/L Potassium 4.2 (3.5-5.1) mEq/L Chloride 103 (98-107) mEq/L Carbon Dioxide 23.8 (21-32) mEq/L Anion Gap 14.3 (5-15) MEQ/L BUN 7 L (9-20) mg/dL Creatinine 0.81 (0.55-1.30) mg/dl Estimated GFR > 60 ML/MIN Glucose 102 (70-110) MG/DL Calcium 9.6 (8.5-10.1) mg/dL Total Bilirubin 0.50 (0.2-1.0) mg/dL AST 20 (15-37) U/L ALT 15 (12-78) U/L Alkaline Phosphatase 77 (46-116) U/L Serum Total Protein 8.5 H (6.4-8.2) gm/dL Albumin 4.3 (3.4-5.0) g/dL Amylase 44 (25-115) U/L Lipase 110 (73-393) U/L Serum , Qual NEGATIVE (Negative) Ur Collection Type CLEAN CATCH Urine Color YELLOW (YELLOW) Urine Appearance CLEAR (CLEAR) Urine pH 7.0 (5-6) Ur Specific [place] 1.010 (1.005-1.025) Urine Protein NEGATIVE (Negative) Urine Ketones NEGATIVE (NEGATIVE) Urine Blood NEGATIVE (0-5) Alexis/ul Urine Nitrite NEGATIVE (NEGATIVE) Urine Bilirubin NEGATIVE (NEGATIVE) Urine Urobilinogen NORMAL (0-1) mg/dL Ur Leukocyte Esterase TRACE (NEGATIVE) Urine Microscopic WBC 10-15 (0-5) /HPF Ur Epithelial Cells MODERATE (FEW) /HPF Urine Bacteria FEW (NEGATIVE) /HPF Urine Culture Reflexed YES (NO) Urine Glucose NEGATIVE (NEGATIVE) mg/dL Specimen Received 07/25/17 1345 07/25/17 Range/Units 13:35 WBC 9.6 (4.0-10.5) K/mm3 RBC 5.09 (4.1-5.4) M/mm3 Hgb 14.4 (12.0-16.0) gm/dl Hct 45.0 (35-47) % MCV 88.4 (78-100) fl MCH 28.3 (26-32) pg MCHC 32.0 (32-36) g/dl RDW 14.2 H (11.5-14.0) % Plt Count 243 (150-450) K/mm3 MPV 10.7 H (6-9.5) fl Gran % 61.3 (36.0-66.0) % Lymphocytes % 29.4 (24.0-44.0) % Monocytes % 6.7 (0.0-12.0) % Eosinophils % 2.4 (0.00-5.0) % Basophils % 0.2 (0.0-0.4) % Basophils # 0.02 (0-0.4) Sodium (136-145) mEq/L Potassium (3.5-5.1) mEq/L Chloride (98-107) mEq/L Carbon Dioxide (21-32) mEq/L Anion Gap (5-15) MEQ/L BUN (9-20) mg/dL Creatinine (0.55-1.30) mg/dl Estimated GFR ML/MIN Glucose (70-110) MG/DL Calcium (8.5-10.1) mg/dL Total Bilirubin (0.2-1.0) mg/dL AST (15-37) U/L ALT (12-78) U/L Alkaline Phosphatase (46-116) U/L Serum Total Protein (6.4-8.2) gm/dL Albumin (3.4-5.0) g/dL Amylase (25-115) U/L Lipase (73-393) U/L Serum , Qual (Negative) Ur Collection Type Urine Color (YELLOW) Urine Appearance (CLEAR) Urine pH (5-6) Ur Specific [place] (1.005-1.025) Urine Protein (Negative) Urine Ketones (NEGATIVE) Urine Blood (0-5) Alexis/ul Urine Nitrite (NEGATIVE) Urine Bilirubin (NEGATIVE) Urine Urobilinogen (0-1) mg/dL Ur Leukocyte Esterase (NEGATIVE) Urine Microscopic WBC (0-5) /HPF Ur Epithelial Cells (FEW) /HPF Urine Bacteria (NEGATIVE) /HPF Urine Culture Reflexed (NO) Urine Glucose (NEGATIVE) mg/dL Specimen Received - Progress Progress: improved Progress Note: 07/25/17 14:[address] scan abd/pelvis shows a 4 cm ovarian cyst. The labs are within normal limits. The patient feels better after receiving toradol. zofran and NS fluids. Pt will be d/c home on toradol and will F/U with OB - Departure Time of Disposition: 14:51 Departure Disposition: Home Clinical Impression: Ovarian cyst Qualifiers: Laterality: right Qualified Code(s): N83.201 - Unspecified ovarian cyst, right side Condition: Stable Critical Care Time: No Referrals: RAHEEL KRISHNAMURTHY [Primary Care Provider] - Instructions: Ovarian Cyst Additional Instructions: Follow up with your OB doctor for further recommendations. Prescriptions: Ketorolac Tromethamine [Toradol] 10 mg PO QID PRN #20 tablet PRN Reason: Pain
[2017-07-25 13:55] LABS: Bilirubin NEGATIVE (NEGATIVE); Blood NEGATIVE Ery/ul (0-5); COMPLETE URINE MICROSCOPIC? YES; Collection Type CLEAN CATCH; Glucose NEGATIVE (NEGATIVE)
[2017-07-25 13:56] LABS: Leukocyte Esterase TRACE (NEGATIVE)
[2017-07-25 14:02] LABS: BASOPHIL % 0.2 % (0.0-0.4); Eosinophil % 2.4 % (0.00-5.0); Granulocytes % 61.3 % (36.0-66.0); Lymphocytes % 29.4 % (24.0-44.0); Mean Cell Volume 88.4 fl (78-100); Mean Corpuscular Hemoglobin 28.3 pg (26-32); Mean Platelet Volume 10.7 fl (6-9.5); Monocytes % 6.7 % (0.0-12.0); Platelet Count 243 K/mm3 (150-450); Red Blood Count 5.09 M/mm3 (4.1-5.4); Red Cell Distribution Width 14.2 % (11.5-14.0); White Blood Count 9.6 K/mm3 (4.0-10.5)
[2017-07-25 14:18] LABS: ALBUMIN 4.3 g/dL (3.4-5.0); ALKALINE PHOSPHATASE 77 U/L (46-116); ANION GAP 14.3 MEQ/L (5-15); BLOOD UREA NITROGEN 7 mg/dL (9-20); CHLORIDE 103 mEq/L (98-107); Carbon Dioxide 23.8 mEq/L (21-32); Glucose 102 MG/DL (70-110); LIPASE 110 U/L (73-393); Potassium 4.2 mEq/L (3.5-5.1); SGOT/AST 20 U/L (15-37); SGPT/ALT 15 U/L (12-78); SODIUM 137 mEq/L (136-145); Total Protein 8.5 gm/dL (6.4-8.2)
--- NOTE | 2017-07-25 14:37 | XRAY ---
Indication: Right flank/right lower quadrant pain. Multiple contiguous axial images obtained through the abdomen and pelvis without contrast using renal stone protocol. Comparison: November 22, 2015. Lung bases are clear. Heart is not enlarged. Again no renal calculus or evidence for obstructive uropathy in either system. New 4 cm right ovary cyst. No free fluid/air. New IUD. Noncontrasted stomach and bowel loops appear nonobstructed. Again previous appendectomy. Remaining liver, gallbladder, pancreas, spleen, adrenal glands, kidneys, ureters, bladder, and aorta appear unremarkable for noncontrast exam. Osseous structures intact. Impression: 1. Negative renal calculus or evidence for obstructive uropathy. 2. New 4 cm right ovary cyst and a IUD. CT DI 14.13
[2017-07-25 14:39] LABS: ADD URINE CULTURE? YES (NO); Bacteria FEW /HPF (NEGATIVE); Epithelial Cells MODERATE /HPF (FEW)
[2017-07-25 14:46] VITALS: BP 123/57; PULSE 97
--- NOTE | 2017-07-25 15:40 | XRAY ---
Indication: Right flank pain. Comparison: April 07, 2017. PA/lateral chest again demonstrates normal heart, lungs, and bony thorax.
== END 2017-07-25 15:04 | disposition home or self-care (01) ==
LOC: ED 13:21
DX: N83.201 Unspecified ovarian cyst, right side (principal); R11.2 Nausea with vomiting, unspecified; R05 Cough; R10.9 Unspecified abdominal pain
CPT/HCPCS: 36000; 36415; 71020; 74176; 80053; 81000; 82150; 83690; 84703; 85025; 87040; 87086; 96360; 96374; 96375; 99284; J1885; J2405

== ENCOUNTER 2017-09-07 19:57 | Emergency (ER) | payer OTHER ==
--- NOTE | 2017-09-07 20:25 | ERPHSYRPT ---
- History of Present Illness Time Seen by Provider: 09/07/17 20:09 Source: patient Exam Limitations: no limitations Physician History: LAST NIGHT PT STARTED WITH SHARP LEFT BREAST PAIN OVER A NEWLY DISCOVERED LUMP ON THE LATERAL ASPECT OF THE LEFT BREAST. PT ALSO C/O DYSURIA AND INCREASED URINARY FREQUENCY FOR THE PAST WEEK WITH VOMITING X1 2 DAYS AGO. Allergies/Adverse Reactions: Penicillins Allergy (Mild, Verified 04/07/17 14:45) FAMILY IS ALLERGIC questionable allergy parents and brother allergic, has never tried it Home Medications: Sertraline HCl [Zoloft] 25 mg PO DAILY 04/07/17 [History] Hx Tetanus, Diphtheria Vaccination/Date Given: Yes Hx Influenza Vaccination/Date Given: No Hx Pneumococcal Vaccination/Date Given: No - Review of Systems Abdominal/Gastrointestinal: Vomiting Genitourinary Symptoms: Dysuria, Frequency Skin: Other (LEFT BREAST LUMP DISCOVERED YESTERDAY) All Other Systems: Reviewed and Negative - Past Medical History Pertinent Past Medical History: Yes Neurological History: No Pertinent History ENT History: No Pertinent History Cardiac History: No Pertinent History Respiratory History: No Pertinent History Endocrine Medical History: No Pertinent History Musculoskeletal History: No Pertinent History GI Medical History: No Pertinent History History: No Pertinent History Psycho-Social History: Anxiety Female Reproductive Disorders: No Pertinent History Other Medical History: UTI - Past Surgical History Past Surgical History: Yes Neuro Surgical History: No Pertinent History Cardiac: No Pertinent History Respiratory: No Pertinent History Gastrointestinal: Appendectomy, Cholecystectomy Genitourinary: No Pertinent History Musculoskeletal: No Pertinent History Female Surgical History: Section Other Surgical History: tubes in ears - Social History Smoking Status: Current every day smoker How long have you smoked: YRS Exposure to second hand smoke: No Drug Use: none Patient Lives Alone: No - Nursing Vital Signs Nursing Vital Signs: Initial Vital Signs Temperature 98.4 F 09/07/17 20:12 Pulse Rate 102 H 09/07/17 20:12 Blood Pressure 104/72 09/07/17 20:12 O2 Sat by Pulse Oximetry 98 09/07/17 20:12 Pain Scale Pain Intensity 3 - Physical Exam General Appearance: alert Eye Exam: PERRL/EOMI Ears, Nose, Throat Exam: pharynx normal, moist mucous membranes, other (CERUMEN OCCLUSION OF BOTH EARS) Neck Exam: normal inspection Respiratory Exam: lungs clear Cardiovascular Exam: normal heart sounds Gastrointestinal/Abdomen Exam: soft, normal bowel sounds, No tenderness Back Exam: normal range of motion Extremity Exam: normal inspection, No pedal edema Neurologic Exam: alert, cooperative Skin Exam: other (~ 3 CM X 2 CM NODULE PALPABLE ON THE LATERAL ASPECT OF THE LEFT BREAST(ER NURSE PRESENT DURING EXAM).) - Course Nursing assessment & vital signs reviewed: Yes Ordered Tests: Active Orders 24 hr Category Date Time Status AMYLASE Stat Lab 09/07/17 20:40 Completed CBC W DIFF Stat Lab 09/07/17 20:40 Completed CMP Stat Lab 09/07/17 20:40 Completed HCG QUALITATIVE,SERUM Stat Lab 09/07/17 20:40 Completed LIPASE Stat Lab 09/07/17 20:40 Completed MAG [MAGNESIUM] Stat Lab 09/07/17 20:40 Completed UA W/RFX UR CULTURE Stat Lab 09/07/17 21:15 Completed Medication Summary Generic Name Dose Route Start Last Admin Trade Name Freq PRN Reason Stop Dose Admin Magnesium Oxide 400 mg 09/07/17 22:00 09/07/17 21:29 Mag-Ox 400 PO 10/07/17 21:59 400 mg BID ARLET Administration Lab/Rad Data: Laboratory Result Diagrams 09/07/17 20:40 09/07/17 20:40 Laboratory Results 09/07/17 09/07/17 09/07/17 Range/Units 21:15 20:40 20:40 WBC (4.0-10.5) K/mm3 RBC (4.1-5.4) M/mm3 Hgb (12.0-16.0) gm/dl Hct (35-47) % MCV (78-100) fl MCH (26-32) pg MCHC (32-36) g/dl RDW (11.5-14.0) % Plt Count (150-450) K/mm3 MPV (6-9.5) fl Gran % (36.0-66.0) % Lymphocytes % (24.0-44.0) % Monocytes % (0.0-12.0) % Eosinophils % (0.00-5.0) % Basophils % (0.0-0.4) % Basophils # (0-0.4) Sodium (136-145) mEq/L Potassium (3.5-5.1) mEq/L Chloride (98-107) mEq/L Carbon Dioxide (21-32) mEq/L Anion Gap (5-15) MEQ/L BUN (9-20) mg/dL Creatinine (0.55-1.30) mg/dl Estimated GFR ML/MIN Glucose (70-110) MG/DL Calcium (8.5-10.1) mg/dL Magnesium 1.7 L (1.8-2.4) mg/dL Total Bilirubin (0.2-1.0) mg/dL AST (15-37) U/L ALT (12-78) U/L Alkaline Phosphatase (46-116) U/L Serum Total Protein (6.4-8.2) gm/dL Albumin (3.4-5.0) g/dL Amylase (25-115) U/L Lipase (73-393) U/L Serum , Qual NEGATIVE (Negative) Ur Collection Type CLEAN CATCH Urine Color YELLOW (YELLOW) Urine Appearance SLIGHTLY CLOUDY (CLEAR) Urine pH 7.0 (5-6) Ur Specific [place] 1.010 (1.005-1.025) Urine Protein NEGATIVE (Negative) Urine Ketones NEGATIVE (NEGATIVE) Urine Blood NEGATIVE (0-5) Alexis/ul Urine Nitrite NEGATIVE (NEGATIVE) Urine Bilirubin NEGATIVE (NEGATIVE) Urine Urobilinogen 4 (0-1) mg/dL Ur Leukocyte Esterase NEGATIVE (NEGATIVE) Urine Culture Reflexed NO (NO) Urine Glucose NEGATIVE (NEGATIVE) mg/dL Specimen Received 09/07/17 2030 09/07/17 09/07/17 Range/Units 20:40 20:40 WBC 8.6 (4.0-10.5) K/mm3 RBC 4.56 (4.1-5.4) M/mm3 Hgb 13.0 (12.0-16.0) gm/dl Hct 41.0 (35-47) % MCV 89.9 (78-100) fl MCH 28.5 (26-32) pg MCHC 31.7 L (32-36) g/dl RDW 13.7 (11.5-14.0) % Plt Count 195 (150-450) K/mm3 MPV 10.7 H (6-9.5) fl Gran % 62.1 (36.0-66.0) % Lymphocytes % 28.3 (24.0-44.0) % Monocytes % 6.5 (0.0-12.0) % Eosinophils % 2.9 (0.00-5.0) % Basophils % 0.2 (0.0-0.4) % Basophils # 0.02 (0-0.4) Sodium 141 (136-145) mEq/L Potassium 3.7 (3.5-5.1) mEq/L Chloride 106 (98-107) mEq/L Carbon Dioxide 25.8 (21-32) mEq/L Anion Gap 12.6 (5-15) MEQ/L BUN 7 L (9-20) mg/dL Creatinine 0.77 (0.55-1.30) mg/dl Estimated GFR > 60 ML/MIN Glucose 109 (70-110) MG/DL Calcium 8.8 (8.5-10.1) mg/dL Magnesium (1.8-2.4) mg/dL Total Bilirubin 0.40 (0.2-1.0) mg/dL AST 12 L (15-37) U/L ALT 12 (12-78) U/L Alkaline Phosphatase 65 (46-116) U/L Serum Total Protein 7.3 (6.4-8.2) gm/dL Albumin 3.9 (3.4-5.0) g/dL Amylase 37 (25-115) U/L Lipase 106 (73-393) U/L Serum , Qual (Negative) Ur Collection Type Urine Color (YELLOW) Urine Appearance (CLEAR) Urine pH (5-6) Ur Specific [place] (1.005-1.025) Urine Protein (Negative) Urine Ketones (NEGATIVE) Urine Blood (0-5) Alexis/ul Urine Nitrite (NEGATIVE) Urine Bilirubin (NEGATIVE) Urine Urobilinogen (0-1) mg/dL Ur Leukocyte Esterase (NEGATIVE) Urine Culture Reflexed (NO) Urine Glucose (NEGATIVE) mg/dL Specimen Received - Departure Time of Disposition: 21:51 Departure Disposition: Home Clinical Impression: LEFT BREAST MASS, VOMITING, MILD HYPOMAGNESEMIA Condition: Stable Critical Care Time: No Referrals: RAHEEL KRISHNAMURTHY [Primary Care Provider] - Instructions: Nausea and Vomiting, Adult (DC) Additional Instructions: FOLLOW UP WITH PRIVATE DOCTOR TOMORROW. RETURN TO [facility] FOR MAMMOGRAM. Prescriptions: Promethazine HCl 25 mg [Phenergan 25 mg] 25 mg PO Q4HPRN PRN #14 tablet PRN Reason: Nausea/Vomiting
[2017-09-07 20:34] VITALS: O2SAT 98
[2017-09-07 20:51] LABS: BASOPHIL % 0.2 % (0.0-0.4); Basophil (Absolute #) 0.02 (0-0.4); Eosinophil % 2.9 % (0.00-5.0); Eosinophil (Absolute #) 0.25 (0-0.5); Granulocyte Absolute (ANC) 5.34 (1.4-6.9); Granulocytes % 62.1 % (36.0-66.0); Lymphocyte (Absolute #) 2.43 (1.0-4.6); Lymphocytes % 28.3 % (24.0-44.0); Mean Cell Volume 89.9 fl (78-100); Mean Corpuscular Hemoglobin 28.5 pg (26-32); Mean Corpuscular Hgb Concent. 31.7 g/dl (32-36); Mean Platelet Volume 10.7 fl (6-9.5); Monocyte (Absolute #) 0.56 (0.0-1.3); Monocytes % 6.5 % (0.0-12.0); Platelet Count 195 K/mm3 (150-450); Red Blood Count 4.56 M/mm3 (4.1-5.4); Red Cell Distribution Width 13.7 % (11.5-14.0); White Blood Count 8.6 K/mm3 (4.0-10.5)
[2017-09-07 21:18] LABS: ALBUMIN 3.9 g/dL (3.4-5.0); ALKALINE PHOSPHATASE 65 U/L (46-116); AMYLASE 37 U/L (25-115); ANION GAP 12.6 MEQ/L (5-15); BLOOD UREA NITROGEN 7 mg/dL (9-20); CHLORIDE 106 mEq/L (98-107); Calcium 8.8 mg/dL (8.5-10.1); Carbon Dioxide 25.8 mEq/L (21-32); Creatinine 1 0.77 mg/dl (0.55-1.30); EST GLOMERULAR FILTRATION RATE > 60 ML/MIN; Glucose 109 MG/DL (70-110); LIPASE 106 U/L (73-393); Potassium 3.7 mEq/L (3.5-5.1); SGOT/AST 12 U/L (15-37); SGPT/ALT 12 U/L (12-78); SODIUM 141 mEq/L (136-145); Total Protein 7.3 gm/dL (6.4-8.2)
[2017-09-07] MEDS ORDERED: MAG-OX 400 ONE (21:27)
[2017-09-07 21:44] LABS: Appearance SLIGHTLY CLOUDY (CLEAR); Bilirubin NEGATIVE (NEGATIVE); Blood NEGATIVE Ery/ul (0-5); Glucose NEGATIVE (NEGATIVE); Ketones NEGATIVE (NEGATIVE); Leukocyte Esterase NEGATIVE (NEGATIVE); Nitrite NEGATIVE (NEGATIVE); Protein,Urine Dip NEGATIVE (Negative); Urobilinogen 4 mg/dL (0-1)
[2017-09-07] MEDS ORDERED: MAG-OX 400 PO SCH (22:00)
[2017-09-07 22:23] VITALS: BP 95/63; PULSE 76
== END 2017-09-07 22:04 | disposition home or self-care (01) ==
LOC: ED 19:57
DX: N63.20 Unspecified lump in the left breast, unspecified quadrant (principal); R11.10 Vomiting, unspecified; E83.42 Hypomagnesemia
CPT/HCPCS: 36415; 80053; 81002; 82150; 83690; 83735; 84703; 85025; 99283; A9270-GY

== ENCOUNTER 2017-11-03 16:11 | Emergency (ER) | payer OTHER ==
[2017-11-03] MEDS ORDERED: TORAdol 30 mg Injection IV ONE (16:37)
[2017-11-03] MEDS ORDERED: Phenergan 25 MG INJ IM ONE (16:37)
[2017-11-03] MEDS ORDERED: Sodium Chloride 0.9% 1000 ML 1,000 ML IV STA (16:37)
[2017-11-03 16:47] LABS: Appearance CLOUDY (CLEAR)
[2017-11-03 16:48] LABS: Bacteria MODERATE /HPF (NEGATIVE); Bilirubin SMALL (NEGATIVE); Blood 50 Ery/ul (0-5); Epithelial Cells MODERATE /HPF (FEW); Glucose NEGATIVE (NEGATIVE); Ketones NEGATIVE (NEGATIVE); Leukocyte Esterase 2+ (NEGATIVE); Nitrite POSITIVE (NEGATIVE); Protein,Urine Dip TRACE (Negative); Urobilinogen 8 mg/dL (0-1); WBC >100 /HPF (0-5)
[2017-11-03 17:18] LABS: BASOPHIL % 0.2 % (0.0-0.4); Basophil (Absolute #) 0.02 (0-0.4); Eosinophil % 2.3 % (0.00-5.0); Eosinophil (Absolute #) 0.21 (0-0.5); Granulocytes % 66.4 % (36.0-66.0); Hematocrit 44.1 % (35-47); Hemoglobin 14.4 gm/dl (12.0-16.0); Lymphocyte (Absolute #) 2.17 (1.0-4.6); Lymphocytes % 23.6 % (24.0-44.0); Mean Cell Volume 90.2 fl (78-100); Mean Corpuscular Hemoglobin 29.4 pg (26-32); Mean Corpuscular Hgb Concent. 32.7 g/dl (32-36); Mean Platelet Volume 10.5 fl (6-9.5); Monocyte (Absolute #) 0.69 (0.0-1.3); Monocytes % 7.5 % (0.0-12.0); Platelet Count 207 K/mm3 (150-450); Red Blood Count 4.89 M/mm3 (4.1-5.4); White Blood Count 9.2 K/mm3 (4.0-10.5)
[2017-11-03] MEDS ORDERED: Phenergan 25 MG INJ ONE (17:25)
[2017-11-03] MEDS ORDERED: TORAdol 30 mg Injection ONE (17:26)
[2017-11-03] MEDS ORDERED: Sodium Chloride 0.9% 1000 ML 1,000 ML ONE (17:26)
[2017-11-03 17:36] LABS: ALBUMIN 4.6 g/dL (3.5-5.0); ALKALINE PHOSPHATASE 71 U/L (38-126); ANION GAP 16.8 MEQ/L (5-15); BLOOD UREA NITROGEN 7 mg/dL (7-17); CHLORIDE 107 mmol/L (98-107); Carbon Dioxide 24 mmol/L (22-30); Creatinine 1 0.61 mg/dL (0.52-1.04); Glucose 82 mg/dL (74-106); LIPASE 83 U/L (23-300); Potassium 3.9 mmol/L (3.5-5.1); SGOT/AST 16 U/L (14-36); SGPT/ALT 12 U/L (0-35); SODIUM 143 mmol/L (137-145); Total Protein 7.7 g/dL (6.3-8.2)
--- NOTE | 2017-11-03 17:59 | ERPHSYRPT ---
- History of Present Illness Time Seen by Provider: 11/03/17 16:19 Source: patient, family (mother) Patient Subjective Stated Complaint: pt here for abd pain to right side of abd, with loose stools, no fever or vomiting Triage Nursing Assessment: pt walked in holding right side, alert, resp easy, abd soft Physician History: CC: abd pain and diarrhea Hx: 22 y/o patient of Dr Bennett. She had prior appendectomy, cholecystectomy, and . LMP 3 weeks ago. She has off and on abd pains. She ate [employer] at 1PM and has had worsened left abd pain and diarrhea all afternoon. No vomiting. No fever or chills. She has prior UTI. Pain moderate. She has prior ovarian cyst as well. Timing/Duration: today Severity: moderate Allergies/Adverse Reactions: Penicillins Allergy (Mild, Verified 11/03/17 16:29) FAMILY IS ALLERGIC questionable allergy parents and brother allergic, has never tried it Hx Tetanus, Diphtheria Vaccination/Date Given: Yes Hx Influenza Vaccination/Date Given: No Hx Pneumococcal Vaccination/Date Given: No Immunizations Up to Date: Yes - Review of Systems Constitutional: No Fever, No Chills Eyes: No Symptoms Ears, Nose, & Throat: No Symptoms Respiratory: No Cough, No Dyspnea Cardiac: No Chest Pain Abdominal/Gastrointestinal: Abdominal Pain, Nausea, Diarrhea, No Vomiting Genitourinary Symptoms: Dysuria Musculoskeletal: No Back Pain Skin: No Rash Neurological: No Headache All Other Systems: Reviewed and Negative - Past Medical History Pertinent Past Medical History: Yes Neurological History: No Pertinent History ENT History: No Pertinent History Cardiac History: No Pertinent History Respiratory History: No Pertinent History Endocrine Medical History: No Pertinent History Musculoskeletal History: No Pertinent History GI Medical History: No Pertinent History History: No Pertinent History Psycho-Social History: Anxiety Female Reproductive Disorders: No Pertinent History Other Medical History: UTI - Past Surgical History Past Surgical History: Yes Neuro Surgical History: No Pertinent History Cardiac: No Pertinent History Respiratory: No Pertinent History Gastrointestinal: Appendectomy, Cholecystectomy Genitourinary: No Pertinent History Musculoskeletal: No Pertinent History Female Surgical History: Section Other Surgical History: tubes in ears - Social History Smoking Status: Current every day smoker How long have you smoked: YRS Exposure to second hand smoke: Yes Drug Use: none Patient Lives Alone: No - Female History Hx Last Menstrual Period: 3 weeks ago Hx Now: (unsure) - Nursing Vital Signs Nursing Vital Signs: Initial Vital Signs Temperature 97.6 F 11/03/17 16:25 Pulse Rate 70 11/03/17 16:25 Respiratory Rate 16 11/03/17 16:25 Blood Pressure 102/67 11/03/17 16:25 O2 Sat by Pulse Oximetry 100 11/03/17 16:25 Pain Scale Pain Intensity 4 - Physical Exam General Appearance: alert, thin Eye Exam: PERRL/EOMI, No scleral icterus Ears, Nose, Throat Exam: normal ENT inspection, moist mucous membranes Neck Exam: normal inspection, non-tender, supple Respiratory Exam: normal breath sounds, lungs clear Cardiovascular Exam: regular rate/rhythm Gastrointestinal/Abdomen Exam: soft, tenderness (mild discomfort left lower, no guarding), No distention, No mass Back Exam: No CVA tenderness Extremity Exam: normal inspection, normal range of motion Neurologic Exam: alert, 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, cooperative, sensation nml, No motor deficits Skin Exam: warm, dry, No rash SpO2 Interpretation: normal SpO2: 100 Oxygen Delivery: Room Air - Course Nursing assessment & vital signs reviewed: Yes - Radiology Ultrasound Exam pelvis Ultrasound: Other (per tech: negative, some follicular cysts, no large cysts, normal flow) Ordered Tests: Active Orders 24 hr Category Date Time Status IV Insertion STAT Care 11/03/17 16:37 Active PELVIS TRANS VAGINAL [US] Stat Exams 11/03/17 16:38 Taken CBC W DIFF Stat Lab 11/03/17 17:10 Completed CMP Stat Lab 11/03/17 17:10 Completed CULTURE,URINE Stat Lab 11/03/17 16:30 Received HCG,QUALITATIVE URINE Stat Lab 11/03/17 16:30 Completed LIPASE Stat Lab 11/03/17 17:10 Completed UA W/ MICROSCOPIC Stat Lab 11/03/17 16:30 Completed Medication Summary Discontinued Medications Generic Name Dose Route Start Last Admin Trade Name Freq PRN Reason Stop Dose Admin Sodium Chloride 1,000 mls @ 999 mls/hr 11/03/17 16:37 11/03/17 17:28 Sodium Chloride 0.9% 1000 Ml IV 11/03/17 17:37 999 mls/hr .Q1H1M STA Administration Sodium Chloride Confirm 11/03/17 17:26 Sodium Chloride 0.9% 1000 Ml Administered 11/03/17 17:27 Dose 1,000 mls @ ud .ROUTE .STK-MED ONE Ketorolac Tromethamine 30 mg 11/03/17 16:37 11/03/17 17:27 Toradol 30 Mg Injection IV 11/03/17 16:38 30 mg STAT ONE Administration Ketorolac Tromethamine Confirm 11/03/17 17:26 Toradol 30 Mg Injection Administered 11/03/17 17:27 Dose 30 mg .ROUTE .STK-MED ONE Promethazine HCl 12.5 mg 11/03/17 16:37 11/03/17 17:27 Phenergan 25 Mg Inj IM 11/03/17 16:38 12.5 mg STAT ONE Administration Promethazine HCl Confirm 11/03/17 17:25 Phenergan 25 Mg Inj Administered 11/03/17 17:26 Dose 25 mg .ROUTE .STK-MED ONE Lab/Rad Data: Laboratory Result Diagrams 11/03/17 17:10 11/03/17 17:10 Laboratory Results 11/03/17 11/03/17 11/03/17 Range/Units 17:10 17:10 16:30 WBC 9.2 (4.0-10.5) K/mm3 RBC 4.89 (4.1-5.4) M/mm3 Hgb 14.4 (12.0-16.0) gm/dl Hct 44.1 (35-47) % MCV 90.2 (78-100) fl MCH 29.4 (26-32) pg MCHC 32.7 (32-36) g/dl RDW 14.0 (11.5-14.0) % Plt Count 207 (150-450) K/mm3 MPV 10.5 H (6-9.5) fl Gran % 66.4 H (36.0-66.0) % Eos # (Auto) 0.21 (0-0.5) Absolute Lymphs (auto) 2.17 (1.0-4.6) Absolute Monos (auto) 0.69 (0.0-1.3) Lymphocytes % 23.6 L (24.0-44.0) % Monocytes % 7.5 (0.0-12.0) % Eosinophils % 2.3 (0.00-5.0) % Basophils % 0.2 (0.0-0.4) % Absolute Granulocytes 6.10 (1.4-6.9) Basophils # 0.02 (0-0.4) Sodium 143 (137-145) mmol/L Potassium 3.9 (3.5-5.1) mmol/L Chloride 107 (98-107) mmol/L Carbon Dioxide 24 (22-30) mmol/L Anion Gap 16.8 H (5-15) MEQ/L BUN 7 (7-17) mg/dL Creatinine 0.61 (0.52-1.04) mg/dL Estimated GFR > 60.0 ML/MIN Glucose 82 (74-106) mg/dL Calcium 10.0 (8.4-10.2) mg/dL Total Bilirubin 0.60 (0.2-1.3) mg/dL AST 16 (14-36) U/L ALT 12 (0-35) U/L Alkaline Phosphatase 71 (38-126) U/L Serum Total Protein 7.7 (6.3-8.2) g/dL Albumin 4.6 (3.5-5.0) g/dL Lipase 83 (23-300) U/L Ur Collection Type Urine Color (YELLOW) Urine Appearance (CLEAR) Urine pH (5-6) Ur Specific [place] (1.005-1.025) Urine Protein (Negative) Urine Ketones (NEGATIVE) Urine Blood (0-5) Alexis/ul Urine Nitrite (NEGATIVE) Urine Bilirubin (NEGATIVE) Urine Urobilinogen (0-1) mg/dL Ur Leukocyte Esterase (NEGATIVE) Urine Microscopic RBC (0-2) /HPF Urine Microscopic WBC (0-5) /HPF Ur Epithelial Cells (FEW) /HPF Urine Bacteria (NEGATIVE) /HPF Urine Culture Reflexed (NO) Urine Glucose (NEGATIVE) mg/dL Urine HCG, Qual NEGATIVE (Negative) Specimen Received 11/03/17 Range/Units 16:30 WBC (4.0-10.5) K/mm3 RBC (4.1-5.4) M/mm3 Hgb (12.0-16.0) gm/dl Hct (35-47) % MCV (78-100) fl MCH (26-32) pg MCHC (32-36) g/dl RDW (11.5-14.0) % Plt Count (150-450) K/mm3 MPV (6-9.5) fl Gran % (36.0-66.0) % Eos # (Auto) (0-0.5) Absolute Lymphs (auto) (1.0-4.6) Absolute Monos (auto) (0.0-1.3) Lymphocytes % (24.0-44.0) % Monocytes % (0.0-12.0) % Eosinophils % (0.00-5.0) % Basophils % (0.0-0.4) % Absolute Granulocytes (1.4-6.9) Basophils # (0-0.4) Sodium (137-145) mmol/L Potassium (3.5-5.1) mmol/L Chloride (98-107) mmol/L Carbon Dioxide (22-30) mmol/L Anion Gap (5-15) MEQ/L BUN (7-17) mg/dL Creatinine (0.52-1.04) mg/dL Estimated GFR ML/MIN Glucose (74-106) mg/dL Calcium (8.4-10.2) mg/dL Total Bilirubin (0.2-1.3) mg/dL AST (14-36) U/L ALT (0-35) U/L Alkaline Phosphatase (38-126) U/L Serum Total Protein (6.3-8.2) g/dL Albumin (3.5-5.0) g/dL Lipase (23-300) U/L Ur Collection Type VOID Urine Color YELLOW (YELLOW) Urine Appearance CLOUDY (CLEAR) Urine pH 7.0 (5-6) Ur Specific [place] 1.010 (1.005-1.025) Urine Protein TRACE (Negative) Urine Ketones NEGATIVE (NEGATIVE) Urine Blood 50 (0-5) Alexis/ul Urine Nitrite POSITIVE (NEGATIVE) Urine Bilirubin SMALL (NEGATIVE) Urine Urobilinogen 8 (0-1) mg/dL Ur Leukocyte Esterase 2+ (NEGATIVE) Urine Microscopic RBC 5-10 (0-2) /HPF Urine Microscopic WBC >100 (0-5) /HPF Ur Epithelial Cells MODERATE (FEW) /HPF Urine Bacteria MODERATE (NEGATIVE) /HPF Urine Culture Reflexed YES (NO) Urine Glucose NEGATIVE (NEGATIVE) mg/dL Urine HCG, Qual (Negative) Specimen Received 11/03/17 1630 - Progress Progress Note: 11/03/17 18:00 She has UTI. IVF and phenergan and toradol given. Advised follow up with Dr Bennett. Urine culture sent. Rx keflex. 11/03/17 18:03 Discussed allergies. She has fam hx of PCN allergy. No personal hx of allergy but has never taken pcn. Counseled pt/family regarding: lab results, diagnosis, need for follow-up, rad results - Departure Time of Disposition: 18:01 Departure Disposition: Home Clinical Impression: UTI (urinary tract infection), Lower abdominal pain Condition: Stable Critical Care Time: No Referrals: ERMA BENNETT [ACTIVE STAFF] - Instructions: Acute Abdomen (Belly Pain), Adult (DC), Urinary Tract Infections in Adults Additional Instructions: Rx keflex. No driving tonite and sip fluids. Follow up with Dr Bennett. Ibuprofen as directed for discomfort. Prescriptions: Cephalexin Mh 500 mg [Keflex 500 mg] 1 cap PO QID #28 capsule
[2017-11-03 18:22] VITALS: BP 120/60; PULSE 74; O2SAT 98
--- NOTE | 2017-11-03 20:34 | XRAY ---
Indication: Left lower quadrant pain. 2-dimensional transvaginal pelvic ultrasound was performed. Comparison: None Uterus is retroflexed measuring 6.6 x 3.8 x 5.3 cm. Myometrium homogeneous in echogenicity. Endometrial stripe measures 4.1 mm in thickness. No endometrial cavity mass or fluid collection. Right ovary measures 3.1 x 1.9 x 3.4 cm and the left measures 2.9 x 1.9 x 3.0 cm. Normal follicular cysts and color Doppler flow bilaterally. No suspicious adnexal mass or free fluid. Impression: Negative transvaginal pelvic sonogram. Comment: Preliminary report was given.
== END 2017-11-03 18:34 | disposition home or self-care (01) ==
LOC: ED 16:11
DX: N39.0 Urinary tract infection, site not specified (principal); R10.30 Lower abdominal pain, unspecified; R19.7 Diarrhea, unspecified
CPT/HCPCS: 36000; 36415; 76830; 80053; 81000; 83690; 84703; 85025; 87077; 87086; 87186; 96360; 96372; 96374; 99284; J1885; J2550

== ENCOUNTER 2018-01-09 22:46 | Emergency (ER) | payer MEDICAID, OTHER ==
[2018-01-09] MEDS ORDERED: TYLENOL 325 MG PO ONE (23:13)
[2018-01-09] MEDS ORDERED: Sodium Chloride 0.9% 1000 ML 1,000 ML IV STA (23:13)
[2018-01-09] MEDS ORDERED: Zofran 4 MG/2 ML VIAL IV ONE (23:13)
--- NOTE | 2018-01-09 23:18 | ERPHSYRPT ---
- History of Present Illness Time Seen by Provider: 01/09/18 23:10 Historian: patient Exam Limitations: no limitations Patient Subjective Stated Complaint: found out was on . states pain in left ribs since. amanda has had pain with urinating. staangelina had some blood on tissue with wiping. Triage Nursing Assessment: alert and oriented. in no distress. sravan has had pain in left ribs since finding out about being on .. has had pain in left ribs since. has had painful urination. intermittent pain in abdomen. no pain at this time. Physician History: 22 y/o female comes to the ER with complaints of bilateral rib pain, bloody urine and vaginal discharge for the past several hours. Pt admits to doing 4 urine tests that were positive. Pt's last period was the beginning of December. Pt describes the pain as sharp, constant, 5/10 and pt has not taken any pain meds. Pt also admits to having nausea and had a couple of episodes of vomiting and diarrhea yesterday. Timing/Duration: today Quality: aching Abdominal Pain Onset Location: RUQ, LUQ Pain Radiation: no radiation Severity of Pain-Max: moderate Severity of Pain-Current: moderate Modifying Factors: Improves With: nothing Associated Symptoms: diarrhea, nausea, vomiting Allergies/Adverse Reactions: Penicillins Allergy (Mild, Verified 11/03/17 16:29) FAMILY IS ALLERGIC questionable allergy parents and brother allergic, has never tried it Hx Tetanus, Diphtheria Vaccination/Date Given: Yes Hx Influenza Vaccination/Date Given: No Hx Pneumococcal Vaccination/Date Given: No - Review of Systems Constitutional: No Fever, No Chills Eyes: No Symptoms Ears, Nose, & Throat: No Symptoms Respiratory: No Cough, No Dyspnea Cardiac: No Chest Pain, No Edema, No Syncope Abdominal/Gastrointestinal: Abdominal Pain, Nausea, Vomiting, Diarrhea Genitourinary Symptoms: No Dysuria Musculoskeletal: No Back Pain, No Neck Pain Skin: No Rash Neurological: No Dizziness, No Focal Weakness, No Sensory Changes Psychological: No Symptoms Endocrine: No Symptoms All Other Systems: Reviewed and Negative - Past Medical History Pertinent Past Medical History: Yes Neurological History: No Pertinent History ENT History: No Pertinent History Cardiac History: No Pertinent History Respiratory History: No Pertinent History Endocrine Medical History: No Pertinent History Musculoskeletal History: No Pertinent History GI Medical History: No Pertinent History History: No Pertinent History Psycho-Social History: Anxiety Female Reproductive Disorders: No Pertinent History Other Medical History: UTI - Past Surgical History Past Surgical History: Yes Neuro Surgical History: No Pertinent History Cardiac: No Pertinent History Respiratory: No Pertinent History Gastrointestinal: Appendectomy, Cholecystectomy Genitourinary: No Pertinent History Musculoskeletal: No Pertinent History Female Surgical History: Section Other Surgical History: tubes in ears - Social History Smoking Status: Current every day smoker How long have you smoked: YRS Exposure to second hand smoke: No Drug Use: none Patient Lives Alone: No - Female History Hx Last Menstrual Period: december 02, 2017 Hx Now: Yes - Nursing Vital Signs Nursing Vital Signs: Initial Vital Signs Temperature 97.9 F 01/09/18 23:04 Pulse Rate 92 H 01/09/18 23:04 Respiratory Rate 16 01/09/18 23:04 Blood Pressure 115/80 01/09/18 23:04 O2 Sat by Pulse Oximetry 97 01/09/18 23:04 Pain Scale Pain Intensity 4 - Physical Exam General Appearance: no apparent distress, alert Eye Exam: PERRL/EOMI, eyes nml inspection Ears, Nose, Throat Exam: normal ENT inspection, pharynx normal, moist mucous membranes Neck Exam: normal inspection, non-tender, supple, full range of motion Respiratory Exam: normal breath sounds, chest tenderness, lungs clear, No respiratory distress Cardiovascular Exam: normal heart sounds, tachycardia Gastrointestinal/Abdomen Exam: soft, normal bowel sounds, No tenderness, No distention, No mass Back Exam: normal inspection, normal range of motion, No CVA tenderness, No vertebral tenderness Extremity Exam: normal inspection, normal range of motion, pelvis stable Neurologic Exam: alert, 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, cooperative, normal mood/affect, nml cerebellar function, sensation nml, No motor deficits Skin Exam: normal color, warm, dry SpO2: 97 Oxygen Delivery: Room Air - Course Nursing assessment & vital signs reviewed: Yes Ordered Tests: Active Orders 24 hr Category Date Time Status IV Insertion STAT Care 01/09/18 23:13 Active AMYLASE Stat Lab 01/09/18 23:30 Completed CBC W DIFF Stat Lab 01/09/18 23:30 Completed CMP Stat Lab 01/09/18 23:30 Completed HCG QUALITATIVE,SERUM Stat Lab 01/09/18 23:30 Completed LIPASE Stat Lab 01/09/18 23:30 Completed UA W/RFX UR CULTURE Stat Lab 01/09/18 23:25 Completed Medication Summary Generic Name Dose Route Start Last Admin Trade Name Jody PRN Reason Stop Dose Admin Sodium Chloride 1,000 mls @ 999 mls/hr 01/09/18 23:13 01/09/18 23:34 Sodium Chloride 0.9% 1000 Ml IV 01/10/18 00:13 999 mls/hr .Q1H1M STA Administration Discontinued Medications Generic Name Dose Route Start Last Admin Trade Name Costaq PRN Reason Stop Dose Admin Acetaminophen 975 mg 01/09/18 23:13 01/09/18 23:35 Tylenol 325 Mg PO 01/09/18 23:14 975 mg STAT ONE Administration Acetaminophen Confirm 01/09/18 23:31 Tylenol 325 Mg Administered 01/09/18 23:32 Dose 975 mg .ROUTE .STK-MED ONE Sodium Chloride Confirm 01/09/18 23:31 Sodium Chloride 0.9% 1000 Ml Administered 01/09/18 23:32 Dose 1,000 mls @ ud .ROUTE .STK-MED ONE Ondansetron HCl 4 mg 01/09/18 23:13 01/09/18 23:35 Zofran 4 Mg/2 Ml Vial IV 01/09/18 23:14 4 mg STAT ONE Administration Ondansetron HCl Confirm 01/09/18 23:31 Zofran 4 Mg/2 Ml Vial Administered 01/09/18 23:32 Dose 4 mg .ROUTE .STK-MED ONE Lab/Rad Data: Laboratory Result Diagrams 01/09/18 23:30 01/09/18 23:30 Laboratory Results 01/09/18 01/09/18 01/09/18 Range/Units 23:30 23:30 23:30 WBC 11.9 H (4.0-10.5) K/mm3 RBC 4.25 (4.1-5.4) M/mm3 Hgb 13.0 (12.0-16.0) gm/dl Hct 39.0 (35-47) % MCV 91.8 (78-100) fl MCH 30.6 (26-32) pg MCHC 33.3 (32-36) g/dl RDW 13.2 (11.5-14.0) % Plt Count 192 (150-450) K/mm3 MPV 10.4 H (6-9.5) fl Gran % 64.2 (36.0-66.0) % Eos # (Auto) 0.29 (0-0.5) Absolute Lymphs (auto) 3.04 (1.0-4.6) Absolute Monos (auto) 0.90 (0.0-1.3) Lymphocytes % 25.5 (24.0-44.0) % Monocytes % 7.6 (0.0-12.0) % Eosinophils % 2.4 (0.00-5.0) % Basophils % 0.3 (0.0-0.4) % Absolute Granulocytes 7.65 H (1.4-6.9) Basophils # 0.03 (0-0.4) Sodium 142 (137-145) mmol/L Potassium 3.9 (3.5-5.1) mmol/L Chloride 104 (98-107) mmol/L Carbon Dioxide 27 (22-30) mmol/L Anion Gap 15.1 H (5-15) MEQ/L BUN 8 (7-17) mg/dL Creatinine 0.59 (0.52-1.04) mg/dL Estimated GFR > 60.0 ML/MIN Glucose 86 (74-106) mg/dL Calcium 9.6 (8.4-10.2) mg/dL Total Bilirubin 0.30 (0.2-1.3) mg/dL AST 14 (14-36) U/L ALT 10 (0-35) U/L Alkaline Phosphatase 68 (38-126) U/L Serum Total Protein 7.3 (6.3-8.2) g/dL Albumin 4.4 (3.5-5.0) g/dL Amylase 56 (30-110) U/L Lipase 80 (23-300) U/L Serum , Qual POSITIVE (Negative) Ur Collection Type Urine Color (YELLOW) Urine Appearance (CLEAR) Urine pH (5-6) Ur Specific [place] (1.005-1.025) Urine Protein (Negative) Urine Ketones (NEGATIVE) Urine Blood (0-5) Alexis/ul Urine Nitrite (NEGATIVE) Urine Bilirubin (NEGATIVE) Urine Urobilinogen (0-1) mg/dL Ur Leukocyte Esterase (NEGATIVE) Urine Culture Reflexed (NO) Urine Glucose (NEGATIVE) mg/dL Specimen Received 01/09/18 Range/Units 23:25 WBC (4.0-10.5) K/mm3 RBC (4.1-5.4) M/mm3 Hgb (12.0-16.0) gm/dl Hct (35-47) % MCV (78-100) fl MCH (26-32) pg MCHC (32-36) g/dl RDW (11.5-14.0) % Plt Count (150-450) K/mm3 MPV (6-9.5) fl Gran % (36.0-66.0) % Eos # (Auto) (0-0.5) Absolute Lymphs (auto) (1.0-4.6) Absolute Monos (auto) (0.0-1.3) Lymphocytes % (24.0-44.0) % Monocytes % (0.0-12.0) % Eosinophils % (0.00-5.0) % Basophils % (0.0-0.4) % Absolute Granulocytes (1.4-6.9) Basophils # (0-0.4) Sodium (137-145) mmol/L Potassium (3.5-5.1) mmol/L Chloride (98-107) mmol/L Carbon Dioxide (22-30) mmol/L Anion Gap (5-15) MEQ/L BUN (7-17) mg/dL Creatinine (0.52-1.04) mg/dL Estimated GFR ML/MIN Glucose (74-106) mg/dL Calcium (8.4-10.2) mg/dL Total Bilirubin (0.2-1.3) mg/dL AST (14-36) U/L ALT (0-35) U/L Alkaline Phosphatase (38-126) U/L Serum Total Protein (6.3-8.2) g/dL Albumin (3.5-5.0) g/dL Amylase (30-110) U/L Lipase (23-300) U/L Serum , Qual (Negative) Ur Collection Type VOID Urine Color YELLOW (YELLOW) Urine Appearance CLEAR (CLEAR) Urine pH 5.0 (5-6) Ur Specific [place] 1.015 (1.005-1.025) Urine Protein NEGATIVE (Negative) Urine Ketones NEGATIVE (NEGATIVE) Urine Blood NEGATIVE (0-5) Alexis/ul Urine Nitrite NEGATIVE (NEGATIVE) Urine Bilirubin NEGATIVE (NEGATIVE) Urine Urobilinogen NORMAL (0-1) mg/dL Ur Leukocyte Esterase NEGATIVE (NEGATIVE) Urine Culture Reflexed NO (NO) Urine Glucose NEGATIVE (NEGATIVE) mg/dL Specimen Received 01/09/18 2260 - Progress Progress: improved Progress Note: 01/10/18 00:02 Pt feels better after receiving tylenol, NS fluids and zofran. The serum HCG is positive. The UA is negative. The rest of the labs are unremarkable. Pt has an appointment with Dr Salinas on 01/22 but I have requested that the patient call on Friday for an earlier appointment. - Departure Time of Disposition: 00:04 Departure Disposition: Home Clinical Impression: Qualifiers: Weeks of gestation: less than 8 weeks Qualified Code(s): Z3A.01 - Less than 8 weeks gestation of Abdominal pain Qualifiers: Abdominal location: unspecified location Qualified Code(s): R10.9 - Unspecified abdominal pain Condition: Stable Critical Care Time: No Referrals: RAHEEL KRISHNAMURTHY [Primary Care Provider] - MIGDALIA SALINAS MD [ACTIVE STAFF] - Instructions: - The First Month Additional Instructions: Follow up with Dr Salinas on Friday. Return to the ER if you should have worsening abdominal pain, nausea, vomiting, vaginal bleeding or urinary symptoms. You can take Tylenol for pain.
[2018-01-09] MEDS ORDERED: Sodium Chloride 0.9% 1000 ML 1,000 ML ONE (23:31)
[2018-01-09] MEDS ORDERED: TYLENOL 325 MG ONE (23:31)
[2018-01-09] MEDS ORDERED: Zofran 4 MG/2 ML VIAL ONE (23:31)
[2018-01-09 23:35] LABS: BASOPHIL % 0.3 % (0.0-0.4); Basophil (Absolute #) 0.03 (0-0.4); Eosinophil % 2.4 % (0.00-5.0); Eosinophil (Absolute #) 0.29 (0-0.5); Granulocyte Absolute (ANC) 7.65 (1.4-6.9); Granulocytes % 64.2 % (36.0-66.0); Lymphocyte (Absolute #) 3.04 (1.0-4.6); Lymphocytes % 25.5 % (24.0-44.0); Mean Cell Volume 91.8 fl (78-100); Mean Corpuscular Hemoglobin 30.6 pg (26-32); Mean Corpuscular Hgb Concent. 33.3 g/dl (32-36); Mean Platelet Volume 10.4 fl (6-9.5); Monocytes % 7.6 % (0.0-12.0); Platelet Count 192 K/mm3 (150-450); Red Blood Count 4.25 M/mm3 (4.1-5.4); Red Cell Distribution Width 13.2 % (11.5-14.0); White Blood Count 11.9 K/mm3 (4.0-10.5)
[2018-01-09 23:40] LABS: Appearance CLEAR (CLEAR); Bilirubin NEGATIVE (NEGATIVE); Blood NEGATIVE Ery/ul (0-5); Glucose NEGATIVE (NEGATIVE); Ketones NEGATIVE (NEGATIVE); Leukocyte Esterase NEGATIVE (NEGATIVE); Nitrite NEGATIVE (NEGATIVE); Protein,Urine Dip NEGATIVE (Negative); Specific Gravity 1.015 (1.005-1.025); Urobilinogen NORMAL mg/dL (0-1)
[2018-01-09 23:53] LABS: ALBUMIN 4.4 g/dL (3.5-5.0); ALKALINE PHOSPHATASE 68 U/L (38-126); AMYLASE 56 U/L (30-110); ANION GAP 15.1 MEQ/L (5-15); BLOOD UREA NITROGEN 8 mg/dL (7-17); CHLORIDE 104 mmol/L (98-107); Calcium 9.6 mg/dL (8.4-10.2); Carbon Dioxide 27 mmol/L (22-30); Creatinine 1 0.59 mg/dL (0.52-1.04); Glucose 86 mg/dL (74-106); LIPASE 80 U/L (23-300); Potassium 3.9 mmol/L (3.5-5.1); SGOT/AST 14 U/L (14-36); SGPT/ALT 10 U/L (0-35); SODIUM 142 mmol/L (137-145); Total Protein 7.3 g/dL (6.3-8.2)
[2018-01-10 00:28] VITALS: BP 99/71; PULSE 83; O2SAT 99
== END 2018-01-10 00:42 | disposition home or self-care (01) ==
LOC: ED 22:46
DX: O26.891 Other specified pregnancy related conditions, first trimester (principal); R10.12 Left upper quadrant pain; R10.11 Right upper quadrant pain; R11.2 Nausea with vomiting, unspecified; R19.7 Diarrhea, unspecified
CPT/HCPCS: 36000; 36415; 80053; 81002; 82150; 83690; 84703; 85025; 96374; 99284; J2405; A9270-GY

== ENCOUNTER 2018-03-22 18:11 | Emergency (ER) | payer OTHER ==
--- NOTE | 2018-03-22 19:05 | ERPHSYRPT ---
- History of Present Illness Time Seen by Provider: 03/22/18 19:00 Source: patient Exam Limitations: no limitations Patient Subjective Stated Complaint: pt here for lower abd pain today with back pain , pain with urination, Triage Nursing Assessment: pt walked in, alert, resp easy, skin w/d/p. abd soft pt is , and denies any bleeding but having vaginal discharge that is clear and thick Physician History: 22 y/o white female presents with dysuria, suprapubic tenderness, bilat flank pain since this am. pt has had an appendectomy and c section in the past. denies n/v/d. pt has a h/o recurrent utis Timing/Duration: today Activites at Onset: none Quality: burning, pressure (bilat flank) Onset Location: right flank, left flank, abdominal pain (suprapubic tenderness) Pain Radiation: none Severity of Pain-Max: mild Severity of Pain-Current: mild Prior abdominal problems: other (c section, appendicitis) Sexual intercourse history: non-contributory Modifying Factors: Improves With: urinating (worsen) Associated Symptoms: dysuria, urinary frequency, lower back pain Allergies/Adverse Reactions: Penicillins Allergy (Mild, Verified 03/22/18 18:43) FAMILY IS ALLERGIC questionable allergy parents and brother allergic, has never tried it Home Medications: Vits W-Ca,Fe,FA(<1Mg) [] 1 ea DAILY 03/22/18 [History] Hx Tetanus, Diphtheria Vaccination/Date Given: Yes Hx Influenza Vaccination/Date Given: No Hx Pneumococcal Vaccination/Date Given: No - Review of Systems Constitutional: No Symptoms, No Fever, No Weakness Eyes: No Symptoms, No Discharge, No Eye Pain Ears, Nose, & Throat: No Symptoms, No Ear Pain Respiratory: No Symptoms, No Cough, No Dyspnea Cardiac: No Symptoms, No Chest Pain, No Palpitations, No Syncope Abdominal/Gastrointestinal: Abdominal Pain (suprapubic tenderness), No Nausea, No Vomiting, No Diarrhea Genitourinary Symptoms: Dysuria, Frequency, Flank Pain, No Hematuria, No Vaginal Bleeding, No Vaginal Discharge Musculoskeletal: Back Pain Skin: No Symptoms Neurological: No Symptoms, No Dizziness, No Lethargy Psychological: No Symptoms Endocrine: No Symptoms Hematologic/Lymphatic: No Symptoms Immunological/Allergic: No Symptoms All Other Systems: Reviewed and Negative - Past Medical History Pertinent Past Medical History: Yes Neurological History: No Pertinent History ENT History: No Pertinent History Cardiac History: No Pertinent History Respiratory History: No Pertinent History Endocrine Medical History: No Pertinent History Musculoskeletal History: No Pertinent History GI Medical History: No Pertinent History History: No Pertinent History Psycho-Social History: Anxiety Female Reproductive Disorders: No Pertinent History Other Medical History: UTI - Past Surgical History Past Surgical History: Yes Neuro Surgical History: No Pertinent History Cardiac: No Pertinent History Respiratory: No Pertinent History Gastrointestinal: Appendectomy, Cholecystectomy Genitourinary: No Pertinent History Musculoskeletal: No Pertinent History Female Surgical History: Section Other Surgical History: tubes in ears - Social History Smoking Status: Current every day smoker How long have you smoked: YRS Exposure to second hand smoke: Yes Drug Use: none Patient Lives Alone: No - Female History Hx Last Menstrual Period: december Hx Now: Yes Expected Date of Delivery: 09/09/18 Gestational Age: 15 - Nursing Vital Signs Nursing Vital Signs: Initial Vital Signs Temperature 98.2 F 03/22/18 18:36 Pulse Rate 64 03/22/18 18:36 Respiratory Rate 16 03/22/18 18:36 Blood Pressure 97/58 03/22/18 18:36 O2 Sat by Pulse Oximetry 98 03/22/18 18:36 Pain Scale Pain Intensity 5 - Physical Exam General Appearance: no apparent distress, alert, anxiety Eye Exam: PERRL/EOMI, eyes nml inspection, No scleral icterus Ears, Nose, Throat Exam: normal ENT inspection Neck Exam: normal inspection Respiratory Exam: normal breath sounds, lungs clear, airway intact, No chest tenderness, No respiratory distress, No accessory muscle use, No wheezing, No stridor Cardiovascular Exam: regular rate/rhythm, normal heart sounds, normal peripheral pulses Gastrointestinal/Abdomen Exam: soft, normal bowel sounds, tenderness (mild suprapubic), No guarding, No rebound Pelvic Exam: not done Rectal Exam: not done Back Exam: normal inspection, normal range of motion, CVA tenderness (mild bilat ), No vertebral tenderness Extremity Exam: normal inspection, normal range of motion, pelvis stable Neurologic Exam: alert, 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, cooperative, rigging man II-XII nml as tested, normal mood/affect Skin Exam: normal color, warm, dry Lymphatic Exam: No adenopathy SpO2 Interpretation: normal SpO2: 98 Oxygen Delivery: Room Air - Course Nursing assessment & vital signs reviewed: Yes Ordered Tests: Active Orders 24 hr Category Date Time Status Clean Catch Urine Specimen STAT Care 03/22/18 19:05 Active HCG,QUALITATIVE URINE Stat Lab 03/22/18 Uncollected UA W/ MICROSCOPIC Stat Lab 03/22/18 19:06 Completed UA W/RFX UR CULTURE Stat Lab 03/22/18 19:05 Uncollected UA W/RFX UR CULTURE Stat Lab 03/22/18 19:46 Uncollected Medication Summary Discontinued Medications Generic Name Dose Route Start Last Admin Trade Name Freq PRN Reason Stop Dose Admin Phenazopyridine HCl 200 mg 03/22/18 19:48 Pyridium 200 Mg PO 03/22/18 19:49 ONCE ONE Trimethoprim/Sulfamethoxazole 1 tab 03/22/18 19:47 Bactrim Ds Tablet PO 03/22/18 19:48 STAT STA Lab/Rad Data: Laboratory Results 03/22/18 Range/Units 19:06 Ur Collection Type VOID Urine Color YELLOW (YELLOW) Urine Appearance SLIGHTLY HAZY (CLEAR) Urine pH 5.5 (5-6) Ur Specific [place] 1.020 (1.005-1.025) Urine Protein NEGATIVE (Negative) Urine Ketones NEGATIVE (NEGATIVE) Urine Blood NEGATIVE (0-5) Alexis/ul Urine Nitrite NEGATIVE (NEGATIVE) Urine Bilirubin NEGATIVE (NEGATIVE) Urine Urobilinogen 1 (0-1) mg/dL Ur Leukocyte Esterase 1+ (NEGATIVE) Urine Microscopic RBC 0-2 (0-2) /HPF Urine Microscopic WBC 5-10 (0-5) /HPF Ur Epithelial Cells MODERATE (FEW) /HPF Urine Bacteria FEW (NEGATIVE) /HPF Urine Mucus MODERATE (NEGATIVE) /HPF Urine Yeast RARE (NEGATIVE) /HPF Urine Glucose NEGATIVE (NEGATIVE) mg/dL Specimen Received 03-22 - Progress Progress: re-examined, unchanged Air Movement: good Blood Culture(s) Obtained: No Antibiotics given: No Counseled pt/family regarding: lab results, diagnosis, need for follow-up - Departure Time of Disposition: 19:52 Departure Disposition: Home Clinical Impression: UTI (urinary tract infection), Lower abdominal pain, Suprapubic discomfort Condition: Good Critical Care Time: No Referrals: RAHEEL KRISHNAMURTHY [Primary Care Provider] - Additional Instructions: Drink plenty of fluids. use tylenol and ibuprofen for fever and pain. follow up with primary doctor for further management Prescriptions: Phenazopyridine HCl 200 mg [Pyridium 200 mg] 200 mg PO TID #6 tablet Smz/Tmp Ds Tablet [Bactrim Ds Tablet] 1 udtab PO BID #14 tablet
[2018-03-22 19:25] LABS: Appearance SLIGHTLY HAZY (CLEAR); Bilirubin NEGATIVE (NEGATIVE); Blood NEGATIVE Ery/ul (0-5); Glucose NEGATIVE (NEGATIVE); Ketones NEGATIVE (NEGATIVE); Nitrite NEGATIVE (NEGATIVE); Ph 5.5 (5-6); Protein,Urine Dip NEGATIVE (Negative); Urobilinogen 1 mg/dL (0-1)
[2018-03-22 19:35] LABS: Leukocyte Esterase 1+ (NEGATIVE); Mucus MODERATE /HPF (NEGATIVE); RBC 0-2 /HPF (0-2)
[2018-03-22 19:36] LABS: Bacteria FEW /HPF (NEGATIVE); Epithelial Cells MODERATE /HPF (FEW)
[2018-03-22] MEDS ORDERED: BACTRIM DS TABLET PO STA (19:47)
[2018-03-22] MEDS ORDERED: PYRIDIUM 200 MG PO ONE (19:48)
[2018-03-22] MEDS ORDERED: PYRIDIUM 200 MG ONE ×2 (20:10→21:04)
[2018-03-22] MEDS ORDERED: BACTRIM DS TABLET PO ONE ×2 (20:10→21:04)
[2018-03-22 22:20] VITALS: BP 98/58; PULSE 59; O2SAT 100
== END 2018-03-22 22:18 | disposition home or self-care (01) ==
LOC: ED 18:11
DX: O23.40 Unspecified infection of urinary tract in pregnancy, unspecified trimester (principal); Z3A.00 Weeks of gestation of pregnancy not specified; Z87.440 Personal history of urinary (tract) infections
CPT/HCPCS: 81000; 84703; 87086; 99284; A9270-GY

== ENCOUNTER 2018-04-01 10:21 | Emergency (ER) | payer OTHER ==
--- NOTE | 2018-04-01 10:55 | ERPHSYRPT ---
- History of Present Illness Time Seen by Provider: 04/01/18 10:25 Source: patient, family Exam Limitations: no limitations Patient Subjective Stated Complaint: Patient stated she woke up this am not feeling well. She states her throat hurts. Patient stated she vomitted earlier and strained during causing her to urinate and cause cramping to lower abdomen. Patient denies bleeding or spotting. Triage Nursing Assessment: Patient ambulated into ER and transferred self into bed. Patient stated she woke up this am not feeling well. She states her throat hurts. Patient stated she vomitted earlier and strained during causing her to urinate and cause cramping to lower abdomen. Patient denies bleeding or spotting. Patient's abdomen noted to be round and soft. Patient also complaining of a sore throat and productive cough with thick clear mucus. Patient states her back is hurting from coughing. Lungs noted to be clear a/p florentin. Physician History: 22 y/o white female 16 weeks seen here recently for uti dx, presents now with vaginal cramping after a few violent episodes of coughing, retching and gagging causing her to vomit. pt denies vaginal bleeding. Timing/Duration: today Activites at Onset: other (vomiting retching and gagging) Quality: cramping Onset Location: vaginal Pain Radiation: vaginal Severity of Pain-Max: moderate Severity of Pain-Current: mild Prior abdominal problems: UTI Sexual intercourse history: single partner Modifying Factors: Improves With: coughing, vomiting Associated Symptoms: vomiting, , No dysuria, No vaginal discharge Allergies/Adverse Reactions: Penicillins Allergy (Mild, Verified 04/01/18 10:37) FAMILY IS ALLERGIC questionable allergy parents and brother allergic, has never tried it Home Medications: Vits W-Ca,Fe,FA(<1Mg) [] 1 ea DAILY 03/22/18 [History] Hx Tetanus, Diphtheria Vaccination/Date Given: Yes Hx Influenza Vaccination/Date Given: No Hx Pneumococcal Vaccination/Date Given: No - Review of Systems Constitutional: No Symptoms, No Fever Eyes: No Symptoms, No Discharge Ears, Nose, & Throat: No Symptoms, No Ear Pain Respiratory: Cough Cardiac: No Symptoms, No Chest Pain Abdominal/Gastrointestinal: Abdominal Pain (vaginal cramping), Vomiting ( secondary to gagging) Genitourinary Symptoms: No Symptoms, , No Dysuria, No Frequency, No Hematuria Musculoskeletal: No Symptoms, No Back Pain, No Fall, No Injury Skin: No Symptoms, No Cellulitis Neurological: No Symptoms, No Dizziness Psychological: No Symptoms, No Anxiety Endocrine: No Symptoms Hematologic/Lymphatic: No Symptoms Immunological/Allergic: No Symptoms All Other Systems: Reviewed and Negative - Past Medical History Pertinent Past Medical History: Yes Neurological History: No Pertinent History ENT History: No Pertinent History Cardiac History: No Pertinent History Respiratory History: No Pertinent History Endocrine Medical History: No Pertinent History Musculoskeletal History: No Pertinent History GI Medical History: No Pertinent History History: No Pertinent History Psycho-Social History: Anxiety Female Reproductive Disorders: No Pertinent History Other Medical History: UTI - Past Surgical History Past Surgical History: Yes Neuro Surgical History: No Pertinent History Cardiac: No Pertinent History Respiratory: No Pertinent History Gastrointestinal: Appendectomy, Cholecystectomy Genitourinary: No Pertinent History Musculoskeletal: No Pertinent History Female Surgical History: Section Other Surgical History: tubes in ears - Social History Smoking Status: Current some day smoker How long have you smoked: 6 years Exposure to second hand smoke: No Drug Use: none Patient Lives Alone: No - Female History Hx Last Menstrual Period: December 05, 2017 Hx Now: Yes Expected Date of Delivery: 09/15/18 - Nursing Vital Signs Nursing Vital Signs: Initial Vital Signs Temperature 97.7 F 04/01/18 10:25 Pulse Rate 75 04/01/18 10:25 Respiratory Rate 18 04/01/18 10:25 O2 Sat by Pulse Oximetry 100 04/01/18 10:25 Pain Scale Pain Intensity 5 - Physical Exam General Appearance: mild distress, alert, anxiety Eye Exam: PERRL/EOMI, eyes nml inspection Ears, Nose, Throat Exam: normal ENT inspection Neck Exam: normal inspection, non-tender, supple, full range of motion Respiratory Exam: normal breath sounds, lungs clear, airway intact, No chest tenderness, No respiratory distress, No accessory muscle use, No wheezing, No stridor Cardiovascular Exam: regular rate/rhythm, normal heart sounds, normal peripheral pulses Gastrointestinal/Abdomen Exam: soft, No normal bowel sounds, No tenderness, No guarding, No rebound Pelvic Exam: not done Rectal Exam: not done Back Exam: normal inspection, normal range of motion, No CVA tenderness, No vertebral tenderness Extremity Exam: normal inspection, normal range of motion, pelvis stable Neurologic Exam: alert, 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, cooperative, academic hospitalist II-XII nml as tested, normal mood/affect Skin Exam: normal color, warm, dry Lymphatic Exam: No adenopathy SpO2 Interpretation: normal SpO2: 100 Oxygen Delivery: Room Air - Course Nursing assessment & vital signs reviewed: Yes Ordered Tests: Active Orders 24 hr Category Date Time Status OB >14 WKS 1st GESTATION [US] Stat Exams 04/01/18 10:45 Taken UA W/RFX UR CULTURE Stat Lab 04/01/18 10:45 Uncollected - Progress Progress: improved, re-examined Air Movement: good Progress Note: 04/01/18 11:38 ob ultrasound >14 weeks-no acute abnormalities. viable single intrauterine fetus at expected age. Blood Culture(s) Obtained: No Antibiotics given: No - Departure Time of Disposition: 11:39 Departure Disposition: Home Clinical Impression: Vaginal cramping, Bronchitis Condition: Stable Critical Care Time: No Referrals: RAHEEL KRISHNAMURTHY [Primary Care Provider] - Additional Instructions: drink plenty of fluids. use over the counter benadryl and robitussin dm as discussed for your cough. 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
--- NOTE | 2018-04-01 11:45 | XRAY ---
Indication: Cramping. Two-dimensional OB ultrasound performed. Comparison: January 27, 2018. Again there is a single viable intrauterine currently in cephalic presentation. heart rate 153 BPM. Visualized stomach and bladder are unremarkable. Placenta is anterior with small maternal right amniotic band. No abruption/previa. BPD measures 3.51 cm corresponding to 16 weeks 6 days. HC measures 12.52 cm corresponding to 16 weeks 2 days. AC measures 10.58 cm corresponding to 16 weeks 4 days. FL measures 2.34 cm corresponding to 17 weeks 0 days. MATHEUS is 9.8 cm. Impression: Again single viable intrauterine with mean gestational age 16 weeks 6 days. Normal progression of . Nothing acute. Incidental small amniotic band.
[2018-04-01 11:58] VITALS: BP 88/55; PULSE 77; O2SAT 97
== END 2018-04-01 11:58 | disposition home or self-care (01) ==
LOC: ED 10:21
DX: O26.892 Other specified pregnancy related conditions, second trimester (principal); Z3A.16 16 weeks gestation of pregnancy; R25.2 Cramp and spasm; J40 Bronchitis, not specified as acute or chronic
CPT/HCPCS: 76805; 99283

== ENCOUNTER 2018-04-18 14:32 | Emergency (ER) | payer OTHER ==
[2018-04-18 14:57] VITALS: BP 110/62; PULSE 89; O2SAT 99
[2018-04-18 15:30] LABS: Appearance CLEAR (CLEAR); Bilirubin NEGATIVE (NEGATIVE); Blood NEGATIVE Ery/ul (0-5); Glucose NEGATIVE (NEGATIVE); Ketones NEGATIVE (NEGATIVE); Leukocyte Esterase NEGATIVE (NEGATIVE); Nitrite NEGATIVE (NEGATIVE); Protein,Urine Dip NEGATIVE (Negative); Specific Gravity 1.005 (1.005-1.025); Urobilinogen NORMAL mg/dL (0-1)
[2018-04-18] MEDS ORDERED: Sodium Chloride 0.9% 1000 ML 1,000 ML IV STA (15:32)
[2018-04-18] MEDS ORDERED: Sodium Chloride 0.9% 1000 ML 1,000 ML ONE (15:36)
--- NOTE | 2018-04-18 15:38 | ERPHSYRPT ---
- History of Present Illness Time Seen by Provider: 04/18/18 15:33 Source: patient Exam Limitations: no limitations Patient Subjective Stated Complaint: pt reports weakness and low blood pressure. pt states she is having visual symptoms as well. states she has a history of hypotension. pt reports she is 18 weeks . reports healthy . pt denies abd pain, cramping, or vaginal bleeding. Triage Nursing Assessment: pt is aox3, pupils perrl, pt afebrile, pt resps easy and non labored, radial pulses are strong and equal, pt heart sounds are strong and regular. pt skin is pale warm dry. Physician History: 22-year-old white female arrives with complaint of paresthesias of both finger states that she's been having episodes of blurry vision symptoms going on since last night. Patient has not had any movement problems. Patient states she is 18 weeks . Past medical history hypotension in the past., Also UTI Past surgical history includes appendectomy cholecystectomy and myringotomy tubes Timing/Duration: other (symptoms since last night) Severity: moderate Modifying Factors: Improves With: nothing Associated Symptoms: nausea, vomiting, other (paresthesias to both hands fingertips), No abdominal pain, No shortness of breath, No heartburn, No diaphoresis, No cough, No chills, No chest pain, No fever, No headaches, No loss of appetite, No malaise, No rash, No syncope, No seizure, No weakness Allergies/Adverse Reactions: Penicillins Allergy (Mild, Verified 04/01/18 10:37) FAMILY IS ALLERGIC questionable allergy parents and brother allergic, has never tried it Home Medications: Vits W-Ca,Fe,FA(<1Mg) [] 1 ea DAILY 03/22/18 [History] Hx Tetanus, Diphtheria Vaccination/Date Given: Yes Hx Influenza Vaccination/Date Given: Yes Hx Pneumococcal Vaccination/Date Given: No Immunizations Up to Date: Yes - Review of Systems Constitutional: No Fever, No Chills Eyes: Vision Changes (blurry vision) Ears, Nose, & Throat: No Symptoms Respiratory: No Cough, No Dyspnea Cardiac: No Chest Pain, No Edema, No Syncope Abdominal/Gastrointestinal: No Abdominal Pain, No Nausea, No Vomiting, No Diarrhea Genitourinary Symptoms: (18 week ega), No Dysuria Musculoskeletal: No Back Pain, No Neck Pain Skin: No Rash Neurological: Parasthesia, Other (paresthesias to both hands fingertips), No Dizziness, No Focal Weakness, No Gait Changes, No Headache, No Irritability, No Lethargy, No Paralysis, No Seizure, No Sensory Changes, No Speech Changes, No Tics, No Tremors, No Vertigo Psychological: No Symptoms Endocrine: No Symptoms All Other Systems: Reviewed and Negative - Past Medical History Pertinent Past Medical History: Yes Neurological History: No Pertinent History ENT History: No Pertinent History Cardiac History: No Pertinent History Respiratory History: No Pertinent History Endocrine Medical History: No Pertinent History Musculoskeletal History: No Pertinent History GI Medical History: No Pertinent History History: No Pertinent History Psycho-Social History: Anxiety Female Reproductive Disorders: No Pertinent History Other Medical History: UTI - Past Surgical History Past Surgical History: Yes Neuro Surgical History: No Pertinent History Cardiac: No Pertinent History Respiratory: No Pertinent History Gastrointestinal: Appendectomy, Cholecystectomy Genitourinary: No Pertinent History Musculoskeletal: No Pertinent History Female Surgical History: Section Other Surgical History: tubes in ears - Social History Smoking Status: Never smoker How long have you smoked: 6 years Exposure to second hand smoke: No Drug Use: none Patient Lives Alone: No - Female History Hx Now: Yes (18 weeks gestation) - Nursing Vital Signs Nursing Vital Signs: Initial Vital Signs Temperature 98.2 F 04/18/18 14:40 Pulse Rate 89 04/18/18 14:40 Respiratory Rate 18 04/18/18 14:40 Blood Pressure 110/62 04/18/18 14:40 O2 Sat by Pulse Oximetry 99 04/18/18 14:40 Pain Scale Pain Intensity 0 - Physical Exam General Appearance: no apparent distress, alert Eye Exam: PERRL/EOMI, eyes nml inspection Ears, Nose, Throat Exam: normal ENT inspection, TMs normal, pharynx normal, moist mucous membranes Neck Exam: normal inspection, non-tender, supple, full range of motion Respiratory Exam: normal breath sounds, lungs clear, No respiratory distress Cardiovascular Exam: regular rate/rhythm, normal heart sounds, normal peripheral pulses Gastrointestinal/Abdomen Exam: soft, normal bowel sounds, distention (gravid abdomen), No tenderness, No mass Back Exam: normal inspection, normal range of motion, No CVA tenderness, No vertebral tenderness Extremity Exam: normal inspection, normal range of motion, pelvis stable Neurologic Exam: alert, 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, cooperative, supervisor ovens II-XII nml as tested ( was), normal mood/affect, nml cerebellar function, nml station & gait, sensation nml, No motor deficits Skin Exam: normal color, warm, dry, No rash SpO2 Interpretation: normal (99%) SpO2: 99 Oxygen Delivery: Room Air Ordered Tests: Active Orders 24 hr Category Date Time Status Accucheck STAT Care 04/18/18 15:33 Active Clean Catch Urine Specimen STAT Care 04/18/18 15:04 Active EKG-ER Only STAT Care 04/18/18 15:32 Active Heart Tones-ED STAT Care 04/18/18 15:10 Active IV Insertion STAT Care 04/18/18 15:32 Active Orthostatic Vital Signs STAT Care 04/18/18 15:33 Active CBC W DIFF Stat Lab 04/18/18 15:32 Ordered CMP Stat Lab 04/18/18 15:32 Ordered UA W/RFX UR CULTURE Stat Lab 04/18/18 15:00 Completed Medication Summary Generic Name Dose Route Start Last Admin Trade Name Costaq PRN Reason Stop Dose Admin Sodium Chloride 1,000 mls @ 999 mls/hr 04/18/18 15:32 Sodium Chloride 0.9% 1000 Ml IV 04/18/18 16:32 .[id number] STA Lab/Rad Data: Laboratory Results 04/18/18 Range/Units 15:00 Ur Collection Type CLEAN CATCH Urine Color YELLOW (YELLOW) Urine Appearance CLEAR (CLEAR) Urine pH 8.0 (5-6) Ur Specific [place] 1.005 (1.005-1.025) Urine Protein NEGATIVE (Negative) Urine Ketones NEGATIVE (NEGATIVE) Urine Blood NEGATIVE (0-5) Alexis/ul Urine Nitrite NEGATIVE (NEGATIVE) Urine Bilirubin NEGATIVE (NEGATIVE) Urine Urobilinogen NORMAL (0-1) mg/dL Ur Leukocyte Esterase NEGATIVE (NEGATIVE) Urine Culture Reflexed NO (NO) Urine Glucose NEGATIVE (NEGATIVE) mg/dL - Progress Progress: improved Progress Note: 04/18/18 15:37 22-year-old white female who is 18 weeks arrives with complaint of blurry vision paresthesias to her fingertips since yesterday no movement problems. Patient with normal neurologic exam full range of motion to all extremities bail agent are equal and symmetrical 5 over 5 normal finger to nose no facial droop sensation intact to all extremities GCS equals 15. Patient has had hypotension in the past states it feels like that. - Departure Referrals: RAHEEL KRISHNAMURTHY [Primary Care Provider] -
[2018-04-18 16:05] LABS: BASOPHIL % 0.1 % (0.0-0.4); Basophil (Absolute #) 0.02 (0-0.4); Eosinophil % 1.6 % (0.00-5.0); Eosinophil (Absolute #) 0.21 (0-0.5); Granulocyte Absolute (ANC) 10.26 (1.4-6.9); Granulocytes % 76.7 % (36.0-66.0); Hematocrit 32.4 % (35-47); Hemoglobin 10.9 gm/dl (12.0-16.0); Mean Cell Volume 93.4 fl (78-100); Mean Corpuscular Hemoglobin 31.4 pg (26-32); Mean Corpuscular Hgb Concent. 33.6 g/dl (32-36); Mean Platelet Volume 10.9 fl (6-9.5); Monocyte (Absolute #) 0.88 (0.0-1.3); Monocytes % 6.6 % (0.0-12.0); Platelet Count 160 K/mm3 (150-450); Red Blood Count 3.47 M/mm3 (4.1-5.4); Red Cell Distribution Width 13.6 % (11.5-14.0); White Blood Count 13.4 K/mm3 (4.0-10.5)
[2018-04-18 16:20] LABS: ALBUMIN 3.5 g/dL (3.5-5.0); ALKALINE PHOSPHATASE 58 U/L (38-126); ANION GAP 11.7 MEQ/L (5-15); BLOOD UREA NITROGEN 7 mg/dL (7-17); CHLORIDE 104 mmol/L (98-107); Calcium 8.8 mg/dL (8.4-10.2); Carbon Dioxide 24 mmol/L (22-30); Creatinine 1 0.45 mg/dL (0.52-1.04); Glucose 85 mg/dL (74-106); Potassium 3.7 mmol/L (3.5-5.1); SGOT/AST 12 U/L (14-36); SGPT/ALT 9 U/L (0-35); SODIUM 137 mmol/L (137-145); Total Protein 6.2 g/dL (6.3-8.2)
== END 2018-04-18 17:30 | disposition home or self-care (01) ==
LOC: ED 14:32
DX: O26.892 Other specified pregnancy related conditions, second trimester (principal); Z3A.18 18 weeks gestation of pregnancy; R20.2 Paresthesia of skin; H53.9 Unspecified visual disturbance; E16.2 Hypoglycemia, unspecified
CPT/HCPCS: 36415; 80053; 81002; 85025; 96360; 99284

== ENCOUNTER 2018-05-13 13:49 | Observation (INO) | payer OTHER ==
[2018-05-13 14:45] LABS: Appearance SLIGHTLY CLOUDY (CLEAR); Bilirubin NEGATIVE (NEGATIVE); Blood NEGATIVE Ery/ul (0-5); Glucose NEGATIVE (NEGATIVE); Ketones NEGATIVE (NEGATIVE); Leukocyte Esterase TRACE (NEGATIVE); Nitrite NEGATIVE (NEGATIVE); Protein,Urine Dip NEGATIVE (Negative); Specific Gravity 1.017 (1.005-1.025); Urobilinogen 2 mg/dL (0-1)
[2018-05-13] MEDS ORDERED: Lactated Ringers 1,000 ML IV ONE (16:03)
[2018-05-13] MEDS ORDERED: TYLENOL 325 MG PO ONE (16:04)
--- NOTE | 2018-05-13 16:36 | XRAY ---
Indication: Back pain. Two-dimensional OB ultrasound performed. Comparison: April 29, 2018. Again there is a single viable intrauterine in breech lie. heart rate 158 BPM. Three-vessel cord and anatomy previously documented. Again anterior placenta without abruption/previa. Cervical length measures 4.1 cm. BPD measures 4.9 cm corresponding to 20 weeks 5 days. HC measures 19.8 cm corresponding to 22 weeks 0 days. AC measures 17.5 cm corresponding to 22 weeks 3 days. FL measures 3.7 cm corresponding to 21 weeks 6 days. MATHEUS is 12.3 sinus. Impression: Again single viable intrauterine with mean gestational age 21 weeks 5 days. Normal progression of . No new/acute findings.
[2018-05-13 18:22] VITALS: BP 96/58; PULSE 71
== END 2018-05-13 18:15 | disposition home or self-care (01) ==
LOC: OB 13:49
PROVIDERS: ADMIT Family Medicine; ATTEND Family Medicine
DX: Z34.83 Encounter for supervision of other normal pregnancy, third trimester (principal)
CPT/HCPCS: 76805; 81001; 83986; G0378; A9270-GY

== ENCOUNTER 2018-05-15 14:07 | Observation (INO) | payer OTHER ==
[2018-05-15] MEDS ORDERED: Lactated Ringers 1,000 ML IV ONE (15:05)
[2018-05-15 15:35] LABS: Hematocrit 34.4 % (35-47); Hemoglobin 11.6 gm/dl (12.0-16.0); Mean Cell Volume 95.3 fl (78-100); Mean Corpuscular Hemoglobin 32.1 pg (26-32); Mean Corpuscular Hgb Concent. 33.7 g/dl (32-36); Mean Platelet Volume 10.2 fl (6-9.5); Platelet Count 179 K/mm3 (150-450); Red Blood Count 3.61 M/mm3 (4.1-5.4); Red Cell Distribution Width 13.4 % (11.5-14.0); White Blood Count 13.1 K/mm3 (4.0-10.5)
[2018-05-15 15:54] LABS: ALBUMIN 4.3 g/dL (3.5-5.0); ALKALINE PHOSPHATASE 77 U/L (38-126); ANION GAP 12.8 MEQ/L (5-15); BLOOD UREA NITROGEN 5 mg/dL (7-17); CHLORIDE 104 mmol/L (98-107); Calcium 9.3 mg/dL (8.4-10.2); Carbon Dioxide 25 mmol/L (22-30); Creatinine 1 0.35 mg/dL (0.52-1.04); Glucose 78 mg/dL (74-106); Potassium 4.2 mmol/L (3.5-5.1); SGOT/AST 14 U/L (14-36); SGPT/ALT 10 U/L (0-35); SODIUM 138 mmol/L (137-145); Total Protein 7.5 g/dL (6.3-8.2)
[2018-05-15 16:26] LABS: BAND 5 % (0.0-2.0); Lymphocytes 22 % (24-44); Neutrophils 73 % (36.0-66.0); Platelet Estimate NORMAL (NORMAL); Total Cells Counted 100; Toxic Granulation 1+
[2018-05-15 16:34] LABS: Appearance CLEAR (CLEAR); Bilirubin NEGATIVE (NEGATIVE); Blood NEGATIVE Ery/ul (0-5); Glucose NEGATIVE (NEGATIVE); Ketones NEGATIVE (NEGATIVE); Leukocyte Esterase NEGATIVE (NEGATIVE); Nitrite NEGATIVE (NEGATIVE); Protein,Urine Dip NEGATIVE (Negative); Urobilinogen NEGATIVE mg/dL (0-1)
[2018-05-15 17:30] VITALS: BP 97/56; PULSE 81
== END 2018-05-15 17:15 | disposition home or self-care (01) ==
LOC: MED SURG 14:07
PROVIDERS: ADMIT Family Medicine; ATTEND Family Medicine
DX: Z34.82 Encounter for supervision of other normal pregnancy, second trimester (principal)
CPT/HCPCS: 36415; 80053; 81001; 85025; G0378

== ENCOUNTER 2018-05-25 20:36 | Emergency (ER) | payer OTHER ==
[2018-05-25] MEDS ORDERED: XYLOCAINE 1% HCL 20 ML MDV IJ ONE (22:20)
--- NOTE | 2018-05-25 22:25 | ERPHSYRPT ---
- History of Present Illness Time Seen by Provider: 05/25/18 22:21 Source: patient Exam Limitations: no limitations Patient Subjective Stated Complaint: Left knee injury Triage Nursing Assessment: Patient brought back to ED via W/C and transferred to bed per self. Patient A+O X 3. Patient complains of left knee injury. Patient was carrying your daughter and fell landing trying to catch herself from landing on her stomach and dropping her daughter she caught herself on her knee. Patient is currently 23 weeks . Patient states pain to left knee is 10/10 with pain shooting down to her feet causing her toes to go numb. Patient has multiple small abrasion noted to left knee that are bleeding. Pedal pulse present. Physician History: This is a 22-year-old white female who states that she is 23 weeks she arrives with complaints of her left knee in her right ankle symptoms since around 8:00 she states she was carrying her 3-year-old child and fell landing on her left knee and twisting her right ankle. She denies any abdominal pain chest pain any other complaints. Past medical history includes migraines, rheumatoid arthritis, anxiety. Past surgical history includes appendectomy, cholecystectomy, , myringotomy tubes. Social history positive tobacco use. Timing/Duration: today (8:00 this evening) Severity: moderate Modifying Factors: Improves With: nothing Associated Symptoms: other (patient is 23 weeks ), No nausea, No vomiting, No abdominal pain, No shortness of breath, No heartburn, No diaphoresis, No cough, No chills, No chest pain, No fever, No headaches, No loss of appetite, No malaise, No rash, No syncope, No seizure (head needs some help were normal up sti), No weakness Allergies/Adverse Reactions: Penicillins Allergy (Mild, Verified 05/15/18 14:36) FAMILY IS ALLERGIC questionable allergy parents and brother allergic, has never tried it Home Medications: Vits W-Ca,Fe,FA(<1Mg) [] 1 ea PO DAILY 03/22/18 [History] Hx Tetanus, Diphtheria Vaccination/Date Given: Yes Hx Influenza Vaccination/Date Given: No Hx Pneumococcal Vaccination/Date Given: No Immunizations Up to Date: Yes - Review of Systems Constitutional: No Fever, No Chills Eyes: No Symptoms Ears, Nose, & Throat: No Symptoms Respiratory: No Cough, No Dyspnea Cardiac: No Chest Pain, No Edema, No Syncope Abdominal/Gastrointestinal: No Abdominal Pain, No Nausea, No Vomiting, No Diarrhea Genitourinary Symptoms: No Dysuria Musculoskeletal: Fall, Other (left knee pain, right ankle pain) Skin: Other (abrasion left knee) Neurological: No Dizziness, No Focal Weakness, No Sensory Changes Psychological: No Symptoms Endocrine: No Symptoms All Other Systems: Reviewed and Negative - Past Medical History Pertinent Past Medical History: Yes Neurological History: Migraines ENT History: No Pertinent History Cardiac History: No Pertinent History Respiratory History: No Pertinent History Endocrine Medical History: No Pertinent History Musculoskeletal History: Other GI Medical History: No Pertinent History History: No Pertinent History Psycho-Social History: Anxiety Female Reproductive Disorders: No Pertinent History Other Medical History: Juvenile RA - Past Surgical History Past Surgical History: Yes Neuro Surgical History: No Pertinent History Cardiac: No Pertinent History Respiratory: No Pertinent History Gastrointestinal: Appendectomy, Cholecystectomy Genitourinary: No Pertinent History Musculoskeletal: No Pertinent History Female Surgical History: Section Other Surgical History: tubes in ears - Social History Smoking Status: Current every day smoker How long have you smoked: 7 yrs Exposure to second hand smoke: Yes Drug Use: none Patient Lives Alone: No - Female History Hx Now: Yes Expected Date of Delivery: 05/12/18 - Nursing Vital Signs Nursing Vital Signs: Initial Vital Signs Temperature 98.5 F 05/25/18 20:40 Pulse Rate 62 05/25/18 20:40 Respiratory Rate 18 05/25/18 20:40 Blood Pressure 128/64 05/25/18 20:40 O2 Sat by Pulse Oximetry 96 05/25/18 20:40 Pain Scale Pain Intensity 10 - Physical Exam General Appearance: mild distress Eye Exam: PERRL/EOMI, eyes nml inspection Ears, Nose, Throat Exam: normal ENT inspection, TMs normal, pharynx normal, moist mucous membranes Neck Exam: normal inspection, non-tender, supple, full range of motion Respiratory Exam: normal breath sounds, lungs clear, No respiratory distress Cardiovascular Exam: regular rate/rhythm, normal heart sounds, normal peripheral pulses Gastrointestinal/Abdomen Exam: soft, normal bowel sounds, No tenderness, No mass Back Exam: normal inspection, normal range of motion, No CVA tenderness, No vertebral tenderness Extremity Exam: other (mild edema left anterior knee and right ankle right knee tender with palpation and movement) Neurologic Exam: alert, 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, cooperative, science and operations officer II-XII nml as tested, normal mood/affect, nml cerebellar function, nml station & gait, sensation nml, No motor deficits Skin Exam: normal color, warm, dry, No rash SpO2 Interpretation: normal (96%) SpO2: 96 Oxygen Delivery: Room Air - Course Nursing assessment & vital signs reviewed: Yes - Radiology Exams Left Knee X-ray Interpretation: Interpreted by me, Negative, No Fracture, No Subluxation Right Ankle X-ray Interpretation: Interpreted by me, Negative, No Fracture, No Subluxation Ordered Tests: Active Orders 24 hr Category Date Time Status Gerson Bandage Application -[facility] STAT Care 05/25/18 23:10 Active Heart Tones-ED STAT Care 05/25/18 22:18 Active Immobilizer STAT Care 05/25/18 23:10 Active Splint STAT Care 05/25/18 23:11 Active ANKLE (3 VIEWS) Stat Exams 05/25/18 22:18 Taken KNEE (1 OR 2 VIEW) Stat Exams 05/25/18 22:19 Taken Medication Summary Discontinued Medications Generic Name Dose Route Start Last Admin Trade Name Freq PRN Reason Stop Dose Admin Lidocaine HCl 5 ml 05/25/18 22:20 Xylocaine 1% Hcl 20 Ml Mdv IJ 05/25/18 22:21 STAT ONE - Progress Progress: improved Progress Note: 05/25/18 22:24 22-year-old white female arrives with complaint of abrasion and pain in her left knee with contusion to left knee and pain in her right ankle after falling. She is 23 weeks I warned her that we will shield her abdomen that we cannot avoid all x-ray exposure to her unborn fetus. Will go ahead and shield the patient's abdomen x-ray her left knee right ankle. Will have nurses clean the abrasion to her left knee. We'll consider offering patient Tolley for pain however we'll have patient consider whether she would rather just have Tylenol I've told her that we can it is not extreme avoid all exposure to the fetus. 05/25/18 23:12 X-ray patient's left knee no fracture no subluxation. X-ray patient's right ankle no fracture no subluxation. Abrasion left knee cleansed by the patient's nurse bacitracin applied with Gerson wrap and left knee immobilizer. Right knee Aircast is applied by the patient's nurse. Patient's heart tones are 150 she has no abdominal pain and is not in any distress other than knee pain and ankle pain. Will discharge patient patient will be given Tylenol for pain. She is to place ice to the left knee 24-48 hours left ankle 24-48 hours Tylenol as needed for pain follow-up with her family doctor symptoms are worse no better in 48 hours or persist longer than one week. She is to return for acute distress or for severe symptoms. - Departure Time of Disposition: 23:13 Departure Disposition: Home Clinical Impression: Abrasion Accidental fall Qualifiers: Encounter type: initial encounter Qualified Code(s): W19.XXXA - Unspecified fall, initial encounter Contusion of left knee Qualifiers: Encounter type: initial encounter Qualified Code(s): S80.02XA - Contusion of left knee, initial encounter Left knee pain Qualifiers: Chronicity: acute Qualified Code(s): M25.562 - Pain in left knee Right ankle sprain Qualifiers: Encounter type: initial encounter Involved ligament of ankle: unspecified ligament Qualified Code(s): S93.401A - Sprain of unspecified ligament of right ankle, initial encounter Qualifiers: Weeks of gestation: 23 weeks Qualified Code(s): Z3A.23 - 23 weeks gestation of Condition: Fair Critical Care Time: No Referrals: RAHEEL KRISHNAMURTHY [Primary Care Provider] - Additional Instructions: Return home. Ice to left knee, right ankle 24-48 hours. Bacitracin to abrasion left knee until healed. Tylenol every 4 hours as needed for pain. Follow-up with your family doctor if symptoms are worse, no better in 48 hours, or persist greater than 1 week. Return for acute distress or for severe symptoms. Your x-rays have been preliminarily read they will be reread tomorrow you will be contacted if any discrepancies are noted.
[2018-05-25] MEDS ORDERED: TYLENOL 325 MG PO ONE (23:16)
[2018-05-25] MEDS ORDERED: TYLENOL 325 MG ONE (23:23)
[2018-05-25 23:48] VITALS: BP 132/68; PULSE 88; O2SAT 99
--- NOTE | 2018-05-26 08:55 | XRAY ---
Indication: Pain following fall. Comparison: None 3 views of the right ankle demonstrates tiny distal tibial bone island. No other bony, articular, or soft tissue abnormalities.
--- NOTE | 2018-05-26 08:57 | XRAY ---
Indication: Pain following fall. Comparison: None AP/lateral left knee demonstrates mild anterior soft tissue swelling. No other bony, articular, or soft tissue abnormalities.
== END 2018-05-25 23:50 | disposition home or self-care (01) ==
LOC: ED 20:36
DX: T14.8XXA Other injury of unspecified body region, initial encounter (principal); W19.XXXA Unspecified fall, initial encounter; M25.571 Pain in right ankle and joints of right foot; S80.02XA Contusion of left knee, initial encounter; M25.562 Pain in left knee; S93.401A Sprain of unspecified ligament of right ankle, initial encounter; X50.1XXA Overexertion from prolonged static or awkward postures, initial encounter; Z3A.23 23 weeks gestation of pregnancy; M06.9 Rheumatoid arthritis, unspecified; M19.90 Unspecified osteoarthritis, unspecified site; R20.0 Anesthesia of skin; Z72.0 Tobacco use
CPT/HCPCS: 73560; 73610; 99284; L1830; A9270-GY

== ENCOUNTER 2018-06-24 05:46 | Observation (INO) | payer OTHER ==
[2018-06-24 09:33] LABS: Appearance CLOUDY (CLEAR); Bilirubin NEGATIVE (NEGATIVE); Blood NEGATIVE Ery/ul (0-5); Glucose NEGATIVE (NEGATIVE); Ketones NEGATIVE (NEGATIVE); Leukocyte Esterase TRACE (NEGATIVE); Nitrite NEGATIVE (NEGATIVE); Protein,Urine Dip NEGATIVE (Negative); Specific Gravity 1.014 (1.005-1.025); Urobilinogen 4 mg/dL (0-1)
[2018-06-24] MEDS ORDERED: XYLOCAINE 1% HCL 20 ML MDV IJ PRN (11:05)
[2018-06-24] MEDS ORDERED: Rocephin 1000 MG INJ IM ONE (11:10)
[2018-06-24 12:40] VITALS: BP 94/51; PULSE 85
== END 2018-06-24 12:20 | disposition home or self-care (01) ==
LOC: OB 05:46
PROVIDERS: ADMIT Family Medicine; ATTEND Family Medicine
DX: Z34.83 Encounter for supervision of other normal pregnancy, third trimester (principal)
CPT/HCPCS: 81001; 87086; 96372; G0378; J0696

== ENCOUNTER 2018-07-08 13:43 | Observation (INO) | payer OTHER ==
[2018-07-08 14:03] VITALS: BP 112/64; PULSE 96
== END 2018-07-08 15:15 | disposition home or self-care (01) ==
LOC: OB 13:43
PROVIDERS: ADMIT Family Medicine; ATTEND Family Medicine
DX: Z34.83 Encounter for supervision of other normal pregnancy, third trimester (principal)
CPT/HCPCS: 59025; G0378

== ENCOUNTER 2018-07-12 19:54 | Observation (INO) | payer OTHER ==
[2018-07-12 20:30] VITALS: BP 106/60; PULSE 108
== END 2018-07-12 21:30 | disposition home or self-care (01) ==
LOC: OB 19:54
PROVIDERS: ADMIT Family Medicine; ATTEND Family Medicine
DX: Z34.83 Encounter for supervision of other normal pregnancy, third trimester (principal)
CPT/HCPCS: 83986; G0378

== ENCOUNTER 2018-07-16 16:46 | Observation (INO) | payer OTHER ==
[2018-07-16 17:15] VITALS: BP 107/68; O2SAT 104
[2018-07-16 17:35] VITALS: PULSE 104
== END 2018-07-16 17:20 | disposition home or self-care (01) ==
LOC: UNDOADMOB 16:46 → OB 16:46 → UNDODISOB 17:20
PROVIDERS: ADMIT Family Medicine; ATTEND Family Medicine
DX: Z34.83 Encounter for supervision of other normal pregnancy, third trimester (principal)
CPT/HCPCS: 83986; G0378

== ENCOUNTER 2018-07-24 00:55 | Observation (INO) | payer OTHER ==
[2018-07-24 01:38] LABS: Appearance SLIGHTLY CLOUDY (CLEAR); Bilirubin NEGATIVE (NEGATIVE); Blood LARGE Ery/ul (0-5); Glucose NEGATIVE (NEGATIVE); Ketones NEGATIVE (NEGATIVE); Leukocyte Esterase TRACE (NEGATIVE); Nitrite NEGATIVE (NEGATIVE); Protein,Urine Dip NEGATIVE (Negative); Specific Gravity 1.006 (1.005-1.025); Urobilinogen 4 mg/dL (0-1)
[2018-07-24 01:42] LABS: Amphetamine,Urine NEGATIVE (NEGATIVE); Barbiturate,Urine NEGATIVE (NEGATIVE); Benzodiazepine,Urine NEGATIVE (NEGATIVE); Cocaine,Urine NEGATIVE (NEGATIVE); Methadone,Urine NEGATIVE (NEGATIVE); Opiate,Urine NEGATIVE (NEGATIVE); PCP,Urine NEGATIVE (NEGATIVE)
[2018-07-24 01:43] LABS: THC,Urine NEGATIVE (NEGATIVE)
[2018-07-24] MEDS ORDERED: Lactated Ringers 1,000 ML IV ONE (02:08)
[2018-07-24] MEDS ORDERED: Lactated Ringers 1,000 ML IV SCH (02:30)
[2018-07-24] MEDS ORDERED: PROCARDIA 10 MG PO ONE ×2 (03:45→04:13)
[2018-07-24] MEDS ORDERED: PROCARDIA 10 MG ONE (03:46)
[2018-07-24] MEDS ORDERED: BRETHINE 1 MG/ML SQ ONE (04:43)
[2018-07-24] MEDS ORDERED: BRETHINE 1 MG/ML ONE (04:47)
[2018-07-24] MEDS ORDERED: TYLENOL 325 MG PO PRN (04:49)
[2018-07-24] MEDS ORDERED: TYLENOL 325 MG ONE (04:50)
--- NOTE | 2018-07-24 08:19 | PCM.SSS ---
History of Present Illness - Chief Complaint Chief Complaint: OB Check History of Present Illness: is a 22 year old female pt of mine from [facility], at 32w 3d here with contractions last night. They were noted to be fairly regular. She was given IVF bolus of 1L and kept running at 125 cc/hr. She was also given procardia x 2 and terbutaline x 1. Feeling much better this morning. occasional contraction noted on toco. FHT Cat I. Will check u/s for vaginal cervical length. Home on procardia. Will follow up wiht me after the New Year (first available). - Review of Systems Abdominal/Gastrointestinal: Abdominal Pain All Other Systems: Reviewed and Negative Medications & Allergies Home Medications: Home Medication List Vits W-Ca,Fe,FA(<1Mg) [] 1 ea PO DAILY 03/22/18 [History Confirmed 07/24/18] Ferrous Sulfate 325 mg [Feosol 325 mg] 325 mg PO DAILY 06/24/18 [History Confirmed 07/24/18] Nifedipine 10 mg [Procardia 10 mg] 10 mg PO TID #90 capsule 07/24/18 [Rx] Allergies/Adverse Reactions: Allergies Allergy/AdvReac Type Severity Reaction Status Date / Time Penicillins Allergy Mild FAMILY IS Verified 07/24/18 01:24 ALLERGIC - Past Medical History Past Medical History: Yes Neurological History: Migraines ENT History: No Pertinent History Cardiac History: No Pertinent History Respiratory History: No Pertinent History Endocrine Medical History: No Pertinent History Musculoskelatal History: Other GI Medical History: No Pertinent History History: No Pertinent History Pyscho-Social History: Anxiety Reproductive Disorders: No Pertinent History Comment: Juvenile RA - Female History Expected Date of Delivery: 09/15/17 - Past Surgical History Past Surgical History: Yes Neuro Surgical History: No Pertinent History Cardiac History: No Pertinent History Respiratory Surgery: No Pertinent History GI Surgical History: Appendectomy, Cholecystectomy Genitourinary Surgical Hx: No Pertinent History Musculskeletal Surgical Hx: No Pertinent History Female Surgical History: Section Other Surgical History: tubes in ears - Social History Smoking Status: Current every day smoker How long have you smoked: 7 yrs Exposure to second hand smoke: No Alcohol: None Drug Use: none - Physical Exam Vital Signs: Vital Signs - 24 hr Temp Pulse Resp BP BP 07/24/18 06:00 98.0 F 100 H 18 106/56 07/24/18 03:00 90 18 101/59 07/24/18 01:25 98.0 F 86 20 109/61 07/24/18 00:55 98.0 F 86 20 109/61 General Appearance: no apparent distress, alert Neurologic Exam: 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, cooperative Eye Exam: eyes nml inspection Ears, Nose, Throat Exam: moist mucous membranes Neck Exam: normal inspection Respiratory Exam: No respiratory distress Gastrointestinal/Abdomen Exam: soft, tenderness (mild scattered), other (abd is gravid) Extremity Exam: normal inspection, No pedal edema, No swelling Skin Exam: warm, dry Results - Labs Lab/Micro Results: Lab Results-Last 24 Hours 07/24/18 07/24/18 Range/Units 01:22 01:22 Urine Color YELLOW (YELLOW) Urine Appearance SLIGHTLY CLOUDY (CLEAR) Urine pH 7.0 (5-6) Ur Specific [place] 1.006 (1.005-1.025) Urine Protein NEGATIVE (Negative) Urine Ketones NEGATIVE (NEGATIVE) Urine Blood LARGE (0-5) Alexis/ul Urine Nitrite NEGATIVE (NEGATIVE) Urine Bilirubin NEGATIVE (NEGATIVE) Urine Urobilinogen 4 (0-1) mg/dL Ur Leukocyte Esterase TRACE (NEGATIVE) Urine WBC (Auto) 3-5 (0-5) /HPF Urine RBC (Auto) 51-100 (0-2) /HPF U Epithel Cells (Auto) RARE (FEW) /HPF Urine Bacteria (Auto) MODERATE (NEGATIVE) /HPF Amorphous Crystals FEW (NEGATIVE) /HPF Urine Mucus (Auto) SLIGHT (NEGATIVE) /HPF Urine Culture Reflexed YES (NO) Urine Glucose NEGATIVE (NEGATIVE) mg/dL Urine Opiates Level NEGATIVE (NEGATIVE) Ur Methadone NEGATIVE (NEGATIVE) Urine Barbiturates NEGATIVE (NEGATIVE) Ur Phencyclidine (PCP) NEGATIVE (NEGATIVE) Urine Amphetamine NEGATIVE (NEGATIVE) U Benzodiazepine Level NEGATIVE (NEGATIVE) Urine Cocaine NEGATIVE (NEGATIVE) Urine Marijuana (THC) NEGATIVE (NEGATIVE) Assessment/Plan (1) Risk of labor during , antepartum Current Visit: Yes Status: Acute Assessment & Plan: Pt at 32w 3d. Home on procardia. Check cervical length. Code(s): O09.219 - SUPRVSN OF PREG W HISTORY OF PRE-TERM LABOR, UNSP TRIMESTER Hospital Summary - Hospital Course Hospital Course: Pt admitted wiht ctxn, they are resolved after IVF, 2 doses of procardia, and 1 dose terbutaline. will check vag cerv length and d/c home on procardia 10mg po TID. - Vitals & Intake/Output Vital Signs: Vital Signs Temperature 98.0 F 07/24/18 06:00 Pulse Rate 100 H 07/24/18 06:00 Respiratory Rate 18 07/24/18 06:00 Blood Pressure 106/56 07/24/18 06:00 O2 Sat by Pulse Oximetry Intake & Output: Intake & Output 07/21/18 07/22/18 07/23/18 07/24/18 11:59 11:59 11:59 11:59 Intake Total 2100 Balance 2100 Weight 73.028 kg - Lab Lab Results-Last 24 Hrs: Lab Results-Last 24 Hours 07/24/18 07/24/18 Range/Units 01:22 01:22 Urine Color YELLOW (YELLOW) Urine Appearance SLIGHTLY CLOUDY (CLEAR) Urine pH 7.0 (5-6) Ur Specific [place] 1.006 (1.005-1.025) Urine Protein NEGATIVE (Negative) Urine Ketones NEGATIVE (NEGATIVE) Urine Blood LARGE (0-5) Alexis/ul Urine Nitrite NEGATIVE (NEGATIVE) Urine Bilirubin NEGATIVE (NEGATIVE) Urine Urobilinogen 4 (0-1) mg/dL Ur Leukocyte Esterase TRACE (NEGATIVE) Urine WBC (Auto) 3-5 (0-5) /HPF Urine RBC (Auto) 51-100 (0-2) /HPF U Epithel Cells (Auto) RARE (FEW) /HPF Urine Bacteria (Auto) MODERATE (NEGATIVE) /HPF Amorphous Crystals FEW (NEGATIVE) /HPF Urine Mucus (Auto) SLIGHT (NEGATIVE) /HPF Urine Culture Reflexed YES (NO) Urine Glucose NEGATIVE (NEGATIVE) mg/dL Urine Opiates Level NEGATIVE (NEGATIVE) Ur Methadone NEGATIVE (NEGATIVE) Urine Barbiturates NEGATIVE (NEGATIVE) Ur Phencyclidine (PCP) NEGATIVE (NEGATIVE) Urine Amphetamine NEGATIVE (NEGATIVE) U Benzodiazepine Level NEGATIVE (NEGATIVE) Urine Cocaine NEGATIVE (NEGATIVE) Urine Marijuana (THC) NEGATIVE (NEGATIVE) - Discharge Disposition: Home, Self-Care Condition: Good Prescriptions: New Nifedipine 10 mg [Procardia 10 mg] 10 mg PO TID #90 capsule Continue Vits W-Ca,Fe,FA(<1Mg) [] 1 ea PO DAILY Ferrous Sulfate 325 mg [Feosol 325 mg] 325 mg PO DAILY Follow up with: RAHEEL KRISHNAMURTHY [Primary Care Provider] - 1 Week
[2018-07-24 08:30] VITALS: BP 91/55; PULSE 94
--- NOTE | 2018-07-24 10:06 | XRAY ---
Indication: Cervical length. Limited OB ultrasound performed to evaluate cervical length. Cervix is closed and measures 4.2 cm in length.
== END 2018-07-24 10:12 | disposition home or self-care (01) ==
LOC: OB 00:55
PROVIDERS: ADMIT Family Medicine; ATTEND Family Medicine
DX: Z34.83 Encounter for supervision of other normal pregnancy, third trimester (principal)
CPT/HCPCS: 76817; 80307; 81001; 83986; 87086; G0378; A9270-GY

== ENCOUNTER 2018-08-06 13:23 | Observation (INO) | payer OTHER ==
[2018-08-06 15:04] LABS: Appearance SLIGHTLY CLOUDY (CLEAR); Bilirubin NEGATIVE (NEGATIVE); Blood NEGATIVE Ery/ul (0-5); Glucose 50 mg/dL (NEGATIVE); Ketones NEGATIVE (NEGATIVE); Leukocyte Esterase NEGATIVE (NEGATIVE); Nitrite NEGATIVE (NEGATIVE); Protein,Urine Dip NEGATIVE (Negative); Specific Gravity 1.008 (1.005-1.025); Urobilinogen NEGATIVE mg/dL (0-1)
[2018-08-06 15:14] LABS: Amphetamine,Urine NEGATIVE (NEGATIVE); Barbiturate,Urine NEGATIVE (NEGATIVE); Benzodiazepine,Urine NEGATIVE (NEGATIVE); Cocaine,Urine NEGATIVE (NEGATIVE); Methadone,Urine NEGATIVE (NEGATIVE); Opiate,Urine NEGATIVE (NEGATIVE); PCP,Urine NEGATIVE (NEGATIVE); THC,Urine NEGATIVE (NEGATIVE)
[2018-08-06 15:45] VITALS: BP 107/62; PULSE 112
== END 2018-08-06 16:00 | disposition home or self-care (01) ==
LOC: MED SURG 13:23
PROVIDERS: ADMIT Family Medicine; ATTEND Family Medicine
DX: Z34.83 Encounter for supervision of other normal pregnancy, third trimester (principal)
CPT/HCPCS: 59025; 80307; 81001; 87086; G0378

== ENCOUNTER 2018-08-16 01:44 | Observation (INO) | payer OTHER ==
[2018-08-16 02:40] LABS: Amphetamine,Urine NEGATIVE (NEGATIVE); Barbiturate,Urine NEGATIVE (NEGATIVE); Benzodiazepine,Urine NEGATIVE (NEGATIVE); Cocaine,Urine NEGATIVE (NEGATIVE); Methadone,Urine NEGATIVE (NEGATIVE); Opiate,Urine NEGATIVE (NEGATIVE); PCP,Urine NEGATIVE (NEGATIVE); THC,Urine NEGATIVE (NEGATIVE)
[2018-08-16] MEDS ORDERED: Lactated Ringers 1,000 ML IV SCH ×2 (05:00→06:00)
[2018-08-16] MEDS ORDERED: TYLENOL 325 MG PO PRN (05:01)
[2018-08-16 05:10] LABS: Appearance CLEAR (CLEAR); Bacteria RARE /HPF (NEGATIVE); Bilirubin NEGATIVE (NEGATIVE); Blood NEGATIVE Ery/ul (0-5); Epithelial Cells RARE /HPF (FEW); Glucose 150 mg/dL (NEGATIVE); Ketones NEGATIVE (NEGATIVE); Leukocyte Esterase NEGATIVE (NEGATIVE); Mucus SLIGHT /HPF (NEGATIVE); Nitrite NEGATIVE (NEGATIVE); Protein,Urine Dip NEGATIVE (Negative); RBC NONE SEEN /HPF (0-2); Specific Gravity 1.002 (1.005-1.025); Urobilinogen NEGATIVE mg/dL (0-1); WBC NONE SEEN /HPF (0-5)
[2018-08-16] MEDS ORDERED: Celestone Soluspan 6MG/ML IM ONE (10:30)
[2018-08-16 11:41] VITALS: BP 101/64; PULSE 81
--- NOTE | 2018-08-16 19:40 | XRAY ---
Indication: Chronic right hip pain. No known injury. 35 weeks . Comparison: None Single AP right hip obtained with patient shielded. No bony, articular, or soft tissue abnormalities. Comment: Preliminary interpretation was made by [facility]. No discrepancy.
== END 2018-08-16 12:00 | disposition home or self-care (01) ==
LOC: UNDOADMOB 01:44 → OB 01:44 → UNDODISOB 12:00
PROVIDERS: ADMIT Family Medicine; ATTEND Family Medicine
DX: Z34.83 Encounter for supervision of other normal pregnancy, third trimester (principal)
CPT/HCPCS: 73501; 80307; 81001; 83986; G0378; J0702

== ENCOUNTER 2018-08-20 10:38 | Observation (INO) | payer OTHER ==
[2018-08-20 11:20] LABS: Hematocrit 33.6 % (35-47); Hemoglobin 10.6 gm/dl (12.0-16.0); Mean Cell Volume 91.3 fl (78-100); Mean Corpuscular Hemoglobin 28.8 pg (26-32); Mean Corpuscular Hgb Concent. 31.5 g/dl (32-36); Mean Platelet Volume 10.2 fl (6-9.5); Platelet Count 269 K/mm3 (150-450); Red Blood Count 3.68 M/mm3 (4.1-5.4); Red Cell Distribution Width 13.2 % (11.5-14.0); White Blood Count 19.9 K/mm3 (4.0-10.5)
[2018-08-20 11:49] LABS: Appearance SLIGHTLY CLOUDY (CLEAR); Bacteria RARE /HPF (NEGATIVE); Bilirubin NEGATIVE (NEGATIVE); Blood NEGATIVE Ery/ul (0-5); Epithelial Cells RARE /HPF (FEW); Glucose >=500 mg/dL (NEGATIVE); Ketones NEGATIVE (NEGATIVE); Leukocyte Esterase TRACE (NEGATIVE); Mucus SLIGHT /HPF (NEGATIVE); Nitrite NEGATIVE (NEGATIVE); Protein,Urine Dip NEGATIVE (Negative); Specific Gravity 1.013 (1.005-1.025); Urobilinogen 2 mg/dL (0-1)
[2018-08-20 12:04] LABS: BAND 1 % (0.0-2.0); Eosinophil 1 % (0.00-3.0); Lymphocytes 11 % (24-44); Monocyte 6 % (0.0-12.0); Neutrophils 81 % (36.0-66.0); Total Cells Counted 100
[2018-08-20 12:05] LABS: Platelet Estimate NORMAL (NORMAL); Toxic Granulation 1+
--- NOTE | 2018-08-20 12:11 | XRAY ---
Indication: Size less than dates. Two-dimensional OB ultrasound performed. Comparison: May 13, 2018. Again there is a single viable intrauterine now in cephalic presentation. heart rate 159 BPM. Three-vessel cord and anatomy previously documented. Visualized stomach, kidneys, and bladder are unremarkable. Again anterior placenta without abruption/previa. BPD measures 8.51 cm corresponding to 34 weeks 2 days. HC measures 30.78 cm corresponding to 34 weeks 2 days. AC measures 30.19 cm corresponding to 34 weeks 1 day. FL measures 6.68 cm corresponding to 34 weeks 3 days. Estimated weight 5 lbs. 4 oz., +/-13 ounces. Approximately 9 percentile. MATHEUS is 12.3 cm. Impression: Again single viable intrauterine with mean gestational age 34 weeks 2 days. There has been progression in the with fetus now measuring 14 days smaller with respect to first exam of January 27, 2018.
[2018-08-20] MEDS ORDERED: Lactated Ringers 1,000 ML IV ONE (12:16)
[2018-08-20] MEDS ORDERED: Lactated Ringers 1,000 ML IV SCH (12:30)
[2018-08-20 17:34] VITALS: BP 102/64; PULSE 90
[2018-08-21 13:15] LABS: RPR Screen Non Reactive (Non Reactive)
== END 2018-08-20 17:00 | disposition home or self-care (01) ==
LOC: OB 10:38
PROVIDERS: ADMIT Family Medicine; ATTEND Family Medicine
DX: Z34.83 Encounter for supervision of other normal pregnancy, third trimester (principal)
CPT/HCPCS: 36415; 76805; 81001; 85025; 86592; 86593; 86780; G0378

== ENCOUNTER 2018-08-25 14:48 | Observation (INO) | payer OTHER ==
[2018-08-25 15:34] VITALS: BP 104/60; PULSE 102
== END 2018-08-25 16:12 | disposition home or self-care (01) ==
LOC: OB 14:48
PROVIDERS: ADMIT Family Medicine; ATTEND Family Medicine
DX: Z34.83 Encounter for supervision of other normal pregnancy, third trimester (principal)
CPT/HCPCS: 59025; G0378

== ENCOUNTER 2018-08-27 13:25 | Observation (INO) | payer OTHER ==
[2018-08-27 14:15] VITALS: BP 118/71; PULSE 85
== END 2018-08-27 14:40 | disposition home or self-care (01) ==
LOC: OB 13:25
PROVIDERS: ADMIT Family Medicine; ATTEND Family Medicine
DX: Z34.83 Encounter for supervision of other normal pregnancy, third trimester (principal)
CPT/HCPCS: 76805; 81003; 82962; G0378

== ENCOUNTER 2019-04-28 17:04 | Emergency (ER) | payer OTHER ==
--- NOTE | 2019-04-28 17:17 | ERPHSYRPT ---
- History of Present Illness Time Seen by Provider: 04/28/19 17:17 Source: patient Exam Limitations: no limitations Patient Subjective Stated Complaint: PT states "I have had an earache for the past two days and this morning I woke up and my throat is really hurting." Triage Nursing Assessment: Pt presented alert and oriented X 3, skin pwd, pt ambulates with an upright steady gait, able to speak in clear full sentences. Timing/Duration: gradual onset Severity: moderate ENT Location: ear (R), ear (L), throat Prearrival Treatment: no prearrival treatment Modifying Factors: Improves With: coughing Associated Symptoms: ear pain (R), ear pain (L), fever, chills, headache, sore throat Allergies/Adverse Reactions: Penicillins Allergy (Mild, Verified 07/24/18 01:24) FAMILY IS ALLERGIC questionable allergy parents and brother allergic, has never tried it Hx Tetanus, Diphtheria Vaccination/Date Given: No Hx Influenza Vaccination/Date Given: Yes Hx Pneumococcal Vaccination/Date Given: No Immunizations Up to Date: Yes - Review of Systems Constitutional: No Fever, No Chills Eyes: No Symptoms Ears, Nose, & Throat: No Symptoms, Ear Pain, Throat Pain Respiratory: No Cough, No Dyspnea Cardiac: No Chest Pain, No Edema, No Syncope Abdominal/Gastrointestinal: No Abdominal Pain, No Nausea, No Vomiting, No Diarrhea Genitourinary Symptoms: No Dysuria Musculoskeletal: No Back Pain, No Neck Pain Skin: No Rash Neurological: No Dizziness, No Focal Weakness, No Sensory Changes Psychological: No Symptoms Endocrine: No Symptoms All Other Systems: Reviewed and Negative - Past Medical History Pertinent Past Medical History: Yes Neurological History: Migraines ENT History: No Pertinent History Cardiac History: No Pertinent History Respiratory History: No Pertinent History Endocrine Medical History: No Pertinent History Musculoskeletal History: Other GI Medical History: No Pertinent History History: No Pertinent History Psycho-Social History: Anxiety Female Reproductive Disorders: No Pertinent History Other Medical History: Juvenile RA - Past Surgical History Past Surgical History: Yes Neuro Surgical History: No Pertinent History Cardiac: No Pertinent History Respiratory: No Pertinent History Gastrointestinal: Appendectomy, Cholecystectomy Genitourinary: No Pertinent History Musculoskeletal: No Pertinent History Female Surgical History: Section Other Surgical History: tubes in ears - Social History Smoking Status: Current every day smoker How long have you smoked: 5 years Exposure to second hand smoke: Yes Drug Use: none Patient Lives Alone: No - Female History Hx Last Menstrual Period: 04/08/2019 Hx Now: No - Nursing Vital Signs Nursing Vital Signs: Initial Vital Signs Temperature 97.8 F 04/28/19 17:08 Pulse Rate 102 H 04/28/19 17:08 Respiratory Rate 20 04/28/19 17:08 Blood Pressure 112/64 04/28/19 17:08 O2 Sat by Pulse Oximetry 99 04/28/19 17:08 Pain Scale Pain Intensity 4 - Physical Exam General Appearance: no apparent distress, alert Eye Exam: bilateral eye: PERRL, EOMI Ear Exam: bilateral ear: TM red Nasal Exam: normal inspection Throat Exam: pharynx normal, moist mucus membranes, pharynx tenderness, No tonsillar exudate Neck Exam: supple Cardiovascular/Respiratory Exam: normal breath sounds, regular rate/rhythm Abdominal Exam: non-tender, soft Neurologic Exam: alert, 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, sensation nml, No motor deficits Skin Exam: normal color, warm, dry SpO2: 99 - Course Nursing assessment & vital signs reviewed: Yes Ordered Tests: Medication Summary Discontinued Medications Generic Name Dose Route Start Last Admin Trade Name Freq PRN Reason Stop Dose Admin Azithromycin 500 mg 04/28/19 17:20 Zithromax 250 Mg Tablet PO 04/28/19 17:21 STAT ONE Ibuprofen 400 mg 04/28/19 17:21 Motrin 400 Mg PO 04/28/19 17:22 STAT ONE Prednisone 10 mg 04/28/19 17:30 Deltasone 10 Mg PO 04/28/19 17:31 STAT ONE - Progress Progress: unchanged Progress Note: pt stable. no life or limb threatening condition 04/28/19 17:34 04/28/19 17:34 Counseled pt/family regarding: diagnosis, need for follow-up - Departure Departure Disposition: Home Clinical Impression: Acute pharyngitis Qualifiers: Pharyngitis/tonsillitis etiology: unspecified etiology Qualified Code(s): J02.9 - Acute pharyngitis, unspecified Bilateral otitis media Qualifiers: Otitis media type: serous Chronicity: acute Recurrence: non-recurrent Qualified Code(s): H65.03 - Acute serous otitis media, bilateral Acute bronchitis Qualifiers: Bronchitis organism: unspecified organism Qualified Code(s): J20.9 - Acute bronchitis, unspecified Condition: Stable Critical Care Time: No Referrals: RAHEEL KRISHNAMURTHY [Primary Care Provider] - 04/30/19 Instructions: Sore Throat, Adult (DC), Acute Bronchitis, Ear Infections ( Otitis Media) Prescriptions: Azithromycin 250 mg [Zithromax 250 MG TABLET] 250 mg PO ZPACK #6 tablet Prednisone 5 mg [Deltasone 5 mg] 5 mg PO BID 5 Days #10 tablet
[2019-04-28] MEDS ORDERED: Zithromax 250 MG TABLET PO ONE (17:20)
[2019-04-28] MEDS ORDERED: MOTRIN 400 MG PO ONE (17:21)
[2019-04-28] MEDS ORDERED: DELTASONE 10 MG PO ONE (17:30)
[2019-04-28] MEDS ORDERED: Zithromax 250 MG TABLET ONE (17:40)
[2019-04-28] MEDS ORDERED: MOTRIN 400 MG ONE (17:40)
[2019-04-28] MEDS ORDERED: DELTASONE 20 MG ONE (17:41)
[2019-04-28 18:26] VITALS: BP 116/68; PULSE 100; O2SAT 100
== END 2019-04-28 18:25 | disposition home or self-care (01) ==
LOC: ED 17:04
DX: H65.03 Acute serous otitis media, bilateral (principal); J20.9 Acute bronchitis, unspecified
CPT/HCPCS: 99283; A9270-GY

== ENCOUNTER 2019-05-18 18:35 | Emergency (ER) | payer OTHER ==
[2019-05-18 18:56] VITALS: O2SAT 99
--- NOTE | 2019-05-18 19:12 | ERPHSYRPT ---
- History of Present Illness Time Seen by Provider: 05/18/19 19:05 Source: patient, family Exam Limitations: no limitations Patient Subjective Stated Complaint: Pt states over past week has had general weakness, nausea, weight loss, abnormal vaginal discharge, and dark colored urine. Decreased oral intake. Also reports low back pain and intermittent rash. Last BM 3-4 days ago which is normal for pt. Denies fever, vomiting, or diarrhea. Last period approximately two months ago but states they have been very irregular since of child eight months ago. Today weakness has worsened which is what prompted visit. Triage Nursing Assessment: Pt skin pink, warm, dry. Gait steady. Equal and strong pulse, motor, sensory in all extremities. Pupils equal and reactive. Physician History: 23 y/o white female presents with a variety of complaints including weakness, nausea, vomiting intermittently, and lack of appetite. pt states her dog of many years recently passed but does not feel this is contributing much. otherwise no additional stressors. pt had abnl vag discharge last week(none now) , weight loss and a bilateral lower ext rash that is improving. pt has chronic intermittent constipation. last bm 3 days ago. this is not unusual for her. pt denies cp, soa, abd pain. pt denies use of illicit drugs. Timing/Duration: week(s) (1) Severity: mild Associated Symptoms: nausea, loss of appetite, No chest pain, No fever, No headaches Allergies/Adverse Reactions: Penicillins Allergy (Mild, Verified 05/18/19 18:56) FAMILY IS ALLERGIC questionable allergy parents and brother allergic, has never tried it Hx Tetanus, Diphtheria Vaccination/Date Given: No Hx Influenza Vaccination/Date Given: No Hx Pneumococcal Vaccination/Date Given: No - Review of Systems Constitutional: Weakness, Weight Loss Eyes: No Symptoms Ears, Nose, & Throat: No Symptoms Respiratory: No Symptoms Cardiac: No Symptoms Abdominal/Gastrointestinal: No Symptoms Genitourinary Symptoms: Other (flank pain with urination) Musculoskeletal: No Symptoms Skin: No Symptoms Neurological: Headache Psychological: No Symptoms Endocrine: No Symptoms Hematologic/Lymphatic: No Symptoms Immunological/Allergic: No Symptoms - Past Medical History Pertinent Past Medical History: Yes Neurological History: Migraines ENT History: No Pertinent History Cardiac History: No Pertinent History Respiratory History: No Pertinent History Endocrine Medical History: No Pertinent History Musculoskeletal History: Other GI Medical History: No Pertinent History History: No Pertinent History Psycho-Social History: Anxiety Female Reproductive Disorders: No Pertinent History Other Medical History: Juvenile RA - Past Surgical History Past Surgical History: Yes Neuro Surgical History: No Pertinent History Cardiac: No Pertinent History Respiratory: No Pertinent History Gastrointestinal: Appendectomy, Cholecystectomy Genitourinary: No Pertinent History Musculoskeletal: No Pertinent History Female Surgical History: Section Other Surgical History: tubes in ears - Social History Smoking Status: Current every day smoker How long have you smoked: 5 years Exposure to second hand smoke: Yes Drug Use: none Patient Lives Alone: No - Female History Hx Last Menstrual Period: approximately two months ago Hx Now: No (Negative home test) - Nursing Vital Signs Nursing Vital Signs: Initial Vital Signs Temperature 97.9 F 05/18/19 18:46 Pulse Rate 94 H 05/18/19 18:46 Respiratory Rate 14 05/18/19 18:46 Blood Pressure 117/76 05/18/19 18:46 O2 Sat by Pulse Oximetry 99 05/18/19 18:46 Pain Scale Pain Intensity 4 - Physical Exam General Appearance: no apparent distress, alert, anxiety Eye Exam: PERRL/EOMI, eyes nml inspection Ears, Nose, Throat Exam: normal ENT inspection, moist mucous membranes Neck Exam: normal inspection, non-tender, supple, full range of motion Respiratory Exam: normal breath sounds, lungs clear, airway intact, No chest tenderness, No respiratory distress Cardiovascular Exam: regular rate/rhythm, normal heart sounds, normal peripheral pulses Gastrointestinal/Abdomen Exam: soft, normal bowel sounds, No tenderness, No guarding Pelvic Exam: not done Rectal Exam: not done Back Exam: normal inspection, normal range of motion, No CVA tenderness, No vertebral tenderness Extremity Exam: normal inspection, normal range of motion, pelvis stable Neurologic Exam: alert, 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, cooperative, registered nurse nursery II-XII nml as tested, normal mood/affect, nml cerebellar function, nml station & gait Skin Exam: normal color, warm, dry Lymphatic Exam: No adenopathy SpO2 Interpretation: normal SpO2: 99 O2 Delivery: Room Air - Course Nursing assessment & vital signs reviewed: Yes EKG Interpreted by Me: RATE (77), Sinus Rhythm, NORMAL AXIS, NORMAL INTERVALS, NORMAL QRS, Other (no changes when compared to Ekg dated 04/18/18) Ordered Tests: Active Orders 24 hr Category Date Time Status Clean Catch Urine Specimen STAT Care 10/15/19 19:13 Active EKG-ER Only STAT Care 05/18/19 19:13 Active IV Insertion STAT Care 05/18/19 19:13 Active AMYLASE Stat Lab 05/18/19 19:30 Completed CBC W DIFF Stat Lab 05/18/19 19:30 Completed CMP Stat Lab 05/18/19 19:30 Completed HCG,QUALITATIVE URINE Stat Lab 05/18/19 19:30 Completed LIPASE Stat Lab 05/18/19 19:30 Completed UA W/RFX UR CULTURE Stat Lab 05/18/19 19:30 Completed Urine Triage Profile Stat Lab 05/18/19 19:30 Completed Medication Summary Discontinued Medications Generic Name Dose Route Start Last Admin Trade Name Freq PRN Reason Stop Dose Admin Sodium Chloride 1,000 mls @ 999 mls/hr 05/18/19 19:13 05/18/19 19:22 Sodium Chloride 0.9% 1000 Ml IV 05/18/19 20:13 999 mls/hr .Q1H1M STA Administration Sodium Chloride Confirm 05/18/19 19:21 Sodium Chloride 0.9% 1000 Ml Administered 05/18/19 19:22 Dose 1,000 mls @ ud .ROUTE .STK-MED ONE Ondansetron HCl 4 mg 05/18/19 19:13 05/18/19 19:23 Zofran 4 Mg/2 Ml Vial IV 05/18/19 19:14 4 mg STAT ONE Administration Ondansetron HCl Confirm 05/18/19 19:21 Zofran 4 Mg/2 Ml Vial Administered 05/18/19 19:22 Dose 4 mg .ROUTE .STK-MED ONE Lab/Rad Data: Laboratory Result Diagrams 05/18/19 19:30 05/18/19 19:30 Laboratory Results 05/18/19 05/18/19 05/18/19 Range/Units 19:30 19:30 19:30 WBC (4.0-10.5) K/mm3 RBC (4.1-5.4) M/mm3 Hgb (12.0-16.0) gm/dl Hct (35-47) % MCV (78-100) fl MCH (26-32) pg MCHC (32-36) g/dl RDW (11.5-14.0) % Plt Count (150-450) K/mm3 MPV (6-9.5) fl Gran % (36.0-66.0) % Eos # (Auto) (0-0.5) Absolute Lymphs (auto) (1.0-4.6) Absolute Monos (auto) (0.0-1.3) Lymphocytes % (24.0-44.0) % Monocytes % (0.0-12.0) % Eosinophils % (0.00-5.0) % Basophils % (0.0-0.4) % Absolute Granulocytes (1.4-6.9) Basophils # (0-0.4) Sodium (137-145) mmol/L Potassium (3.5-5.1) mmol/L Chloride (98-107) mmol/L Carbon Dioxide (22-30) mmol/L Anion Gap (5-15) MEQ/L BUN (7-17) mg/dL Creatinine (0.52-1.04) mg/dL Estimated GFR ML/MIN Glucose (74-106) mg/dL Calcium (8.4-10.2) mg/dL Total Bilirubin (0.2-1.3) mg/dL AST (14-36) U/L ALT (0-35) U/L Alkaline Phosphatase (38-126) U/L Serum Total Protein (6.3-8.2) g/dL Albumin (3.5-5.0) g/dL Amylase (30-110) U/L Lipase (23-300) U/L Urine Color YELLOW (YELLOW) Urine Appearance SLIGHTLY CLOUDY (CLEAR) Urine pH 7.0 (5-6) Ur Specific [place] 1.013 (1.005-1.025) Urine Protein NEGATIVE (Negative) Urine Ketones NEGATIVE (NEGATIVE) Urine Blood NEGATIVE (0-5) Alexis/ul Urine Nitrite NEGATIVE (NEGATIVE) Urine Bilirubin NEGATIVE (NEGATIVE) Urine Urobilinogen 4 (0-1) mg/dL Ur Leukocyte Esterase NEGATIVE (NEGATIVE) Urine WBC (Auto) NONE (0-5) /HPF Urine RBC (Auto) NONE (0-2) /HPF U Epithel Cells (Auto) RARE (FEW) /HPF Urine Bacteria (Auto) NONE (NEGATIVE) /HPF Urine Mucus (Auto) SLIGHT (NEGATIVE) /HPF Urine Culture Reflexed NO (NO) Urine Glucose NEGATIVE (NEGATIVE) mg/dL Urine HCG, Qual NEGATIVE (Negative) Urine Opiates Level NEGATIVE (NEGATIVE) Ur Methadone NEGATIVE (NEGATIVE) Urine Barbiturates NEGATIVE (NEGATIVE) Ur Phencyclidine (PCP) NEGATIVE (NEGATIVE) Urine Amphetamine NEGATIVE (NEGATIVE) U Benzodiazepine Level NEGATIVE (NEGATIVE) Urine Cocaine NEGATIVE (NEGATIVE) Urine Marijuana (THC) NEGATIVE (NEGATIVE) 05/18/19 05/18/19 Range/Units 19:30 19:30 WBC 11.8 H (4.0-10.5) K/mm3 RBC 4.83 (4.1-5.4) M/mm3 Hgb 13.2 (12.0-16.0) gm/dl Hct 40.9 (35-47) % MCV 84.7 (78-100) fl MCH 27.3 (26-32) pg MCHC 32.3 (32-36) g/dl RDW 14.6 H (11.5-14.0) % Plt Count 282 (150-450) K/mm3 MPV 10.4 H (6-9.5) fl Gran % 69.8 H (36.0-66.0) % Eos # (Auto) 0.31 (0-0.5) Absolute Lymphs (auto) 2.46 (1.0-4.6) Absolute Monos (auto) 0.78 (0.0-1.3) Lymphocytes % 20.8 L (24.0-44.0) % Monocytes % 6.6 (0.0-12.0) % Eosinophils % 2.6 (0.00-5.0) % Basophils % 0.2 (0.0-0.4) % Absolute Granulocytes 8.26 H (1.4-6.9) Basophils # 0.02 (0-0.4) Sodium 141 (137-145) mmol/L Potassium 4.3 (3.5-5.1) mmol/L Chloride 105 (98-107) mmol/L Carbon Dioxide 22 (22-30) mmol/L Anion Gap 17.9 H (5-15) MEQ/L BUN 8 (7-17) mg/dL Creatinine 0.53 (0.52-1.04) mg/dL Estimated GFR > 60.0 ML/MIN Glucose 100 (74-106) mg/dL Calcium 10.1 (8.4-10.2) mg/dL Total Bilirubin 0.60 (0.2-1.3) mg/dL AST 21 (14-36) U/L ALT 13 (0-35) U/L Alkaline Phosphatase 75 (38-126) U/L Serum Total Protein 7.7 (6.3-8.2) g/dL Albumin 4.5 (3.5-5.0) g/dL Amylase 54 (30-110) U/L Lipase 66 (23-300) U/L Urine Color (YELLOW) Urine Appearance (CLEAR) Urine pH (5-6) Ur Specific [place] (1.005-1.025) Urine Protein (Negative) Urine Ketones (NEGATIVE) Urine Blood (0-5) Alexis/ul Urine Nitrite (NEGATIVE) Urine Bilirubin (NEGATIVE) Urine Urobilinogen (0-1) mg/dL Ur Leukocyte Esterase (NEGATIVE) Urine WBC (Auto) (0-5) /HPF Urine RBC (Auto) (0-2) /HPF U Epithel Cells (Auto) (FEW) /HPF Urine Bacteria (Auto) (NEGATIVE) /HPF Urine Mucus (Auto) (NEGATIVE) /HPF Urine Culture Reflexed (NO) Urine Glucose (NEGATIVE) mg/dL Urine HCG, Qual (Negative) Urine Opiates Level (NEGATIVE) Ur Methadone (NEGATIVE) Urine Barbiturates (NEGATIVE) Ur Phencyclidine (PCP) (NEGATIVE) Urine Amphetamine (NEGATIVE) U Benzodiazepine Level (NEGATIVE) Urine Cocaine (NEGATIVE) Urine Marijuana (THC) (NEGATIVE) - Progress Progress: unchanged Counseled pt/family regarding: lab results, diagnosis, need for follow-up, rad results - Departure Departure Disposition: Home Clinical Impression: Weakness, Vomiting, Weight loss Condition: Stable Critical Care Time: No Referrals: RAHEEL KRISHNAMURTHY [Primary Care Provider] - Additional Instructions: drink plenty of fluids. follow up with your primary doctor for further management Prescriptions: Ondansetron HCl [Zofran] 4 mg PO TID PRN #10 tablet PRN Reason: Nausea/Vomiting
[2019-05-18] MEDS ORDERED: Zofran 4 MG/2 ML VIAL IV ONE (19:13)
[2019-05-18] MEDS ORDERED: Sodium Chloride 0.9% 1000 ML 1,000 ML IV STA (19:13)
[2019-05-18] MEDS ORDERED: Zofran 4 MG/2 ML VIAL ONE (19:21)
[2019-05-18] MEDS ORDERED: Sodium Chloride 0.9% 1000 ML 1,000 ML ONE (19:21)
[2019-05-18 19:31] LABS: Absolute Neutrophil Ct (ANC) 8.26 (1.4-6.9); BASOPHIL % 0.2 % (0.0-0.4); Basophil (Absolute #) 0.02 (0-0.4); Eosinophil % 2.6 % (0.00-5.0); Eosinophil (Absolute #) 0.31 (0-0.5); Hematocrit 40.9 % (35-47); Hemoglobin 13.2 gm/dl (12.0-16.0); Lymphocyte (Absolute #) 2.46 (1.0-4.6); Lymphocytes % 20.8 % (24.0-44.0); Mean Cell Volume 84.7 fl (78-100); Mean Corpuscular Hemoglobin 27.3 pg (26-32); Mean Corpuscular Hgb Concent. 32.3 g/dl (32-36); Mean Platelet Volume 10.4 fl (6-9.5); Monocyte (Absolute #) 0.78 (0.0-1.3); Monocytes % 6.6 % (0.0-12.0); Neutrophil % 69.8 % (36.0-66.0); Platelet Count 282 K/mm3 (150-450); Red Blood Count 4.83 M/mm3 (4.1-5.4); Red Cell Distribution Width 14.6 % (11.5-14.0); White Blood Count 11.8 K/mm3 (4.0-10.5)
[2019-05-18 19:42] LABS: Appearance SLIGHTLY CLOUDY (CLEAR); Bilirubin NEGATIVE (NEGATIVE); Blood NEGATIVE Ery/ul (0-5); Epithelial Cells RARE /HPF (FEW); Glucose NEGATIVE (NEGATIVE); Ketones NEGATIVE (NEGATIVE); Leukocyte Esterase NEGATIVE (NEGATIVE); Mucus SLIGHT /HPF (NEGATIVE); Nitrite NEGATIVE (NEGATIVE); Protein,Urine Dip NEGATIVE (Negative); Specific Gravity 1.013 (1.005-1.025); Urobilinogen 4 mg/dL (0-1)
[2019-05-18 19:49] LABS: ALBUMIN 4.5 g/dL (3.5-5.0); ALKALINE PHOSPHATASE 75 U/L (38-126); AMYLASE 54 U/L (30-110); ANION GAP 17.9 MEQ/L (5-15); BLOOD UREA NITROGEN 8 mg/dL (7-17); CHLORIDE 105 mmol/L (98-107); Calcium 10.1 mg/dL (8.4-10.2); Carbon Dioxide 22 mmol/L (22-30); Creatinine 1 0.53 mg/dL (0.52-1.04); Glucose 100 mg/dL (74-106); LIPASE 66 U/L (23-300); Potassium 4.3 mmol/L (3.5-5.1); SGOT/AST 21 U/L (14-36); SGPT/ALT 13 U/L (0-35); SODIUM 141 mmol/L (137-145); Total Protein 7.7 g/dL (6.3-8.2)
[2019-05-18 19:51] LABS: Amphetamine,Urine NEGATIVE (NEGATIVE); Barbiturate,Urine NEGATIVE (NEGATIVE); Benzodiazepine,Urine NEGATIVE (NEGATIVE); Cocaine,Urine NEGATIVE (NEGATIVE); Methadone,Urine NEGATIVE (NEGATIVE); Opiate,Urine NEGATIVE (NEGATIVE); PCP,Urine NEGATIVE (NEGATIVE); THC,Urine NEGATIVE (NEGATIVE)
[2019-05-18 20:54] VITALS: BP 109/69; PULSE 81
== END 2019-05-18 21:03 | disposition home or self-care (01) ==
LOC: ED 18:35
DX: R53.1 Weakness (principal); R11.2 Nausea with vomiting, unspecified; R63.4 Abnormal weight loss; N89.8 Other specified noninflammatory disorders of vagina; K59.09 Other constipation; R10.9 Unspecified abdominal pain
CPT/HCPCS: 36000; 36415; 80053; 80307; 81001; 82150; 83690; 84703; 85025; 93005; 96374; 99284; J2405

== ENCOUNTER 2019-08-16 21:14 | Emergency (ER) | payer MEDICAID ==
[~2019-08-16 21:14] MED LIST: PYRIDIUM 200 MG PO SCH
[2019-08-16 21:37] VITALS: O2SAT 100
[2019-08-16 22:22] LABS: Appearance SLIGHTLY CLOUDY (CLEAR); Bacteria RARE /HPF (NEGATIVE); Bilirubin NEGATIVE (NEGATIVE); Blood SMALL Ery/ul (0-5); Epithelial Cells RARE /HPF (FEW); Glucose NEGATIVE (NEGATIVE); Ketones NEGATIVE (NEGATIVE); Leukocyte Esterase MODERATE (NEGATIVE); Nitrite NEGATIVE (NEGATIVE); Protein,Urine Dip NEGATIVE (Negative); Specific Gravity 1.008 (1.005-1.025); Urobilinogen NEGATIVE mg/dL (0-1); WBC >100 /HPF (0-5)
[2019-08-16] MEDS ORDERED: BACTRIM DS TABLET PO STA (23:03)
[2019-08-16] MEDS ORDERED: PYRIDIUM 200 MG ONE (23:06)
[2019-08-16] MEDS ORDERED: BACTRIM DS TABLET PO ONE (23:06)
--- NOTE | 2019-08-16 23:10 | ERPHSYRPT ---
- History of Present Illness Time Seen by Provider: 08/16/19 22:00 Source: patient Exam Limitations: no limitations Patient Subjective Stated Complaint: pt states, "the back pain and painful urination started yesterday and it has just gotten worse throughout the day today". Triage Nursing Assessment: pt c/o burning on urination with excruciating pain and low back pain bilat. Rates pain a 10 with urination and a 5 all the other times. Physician History: Patient has had dysuria for the past 1.5 days Timing/Duration: day(s) (1.5) Activites at Onset: none Quality: burning Onset Location: suprapubic Pain Radiation: none Severity of Pain-Max: moderate Severity of Pain-Current: mild Prior abdominal problems: similar symptoms Modifying Factors: Worsens With: urinating Associated Symptoms: dysuria, urinary frequency, No abdominal pain, No fever, No chills, No diaphoresis, No nausea, No vomiting, No nocturia, No , No loss of bladder control, No lower back pain, No lumps, No mass, No swelling, No syncope, No vaginal discharge, No vaginal fluid leakage Allergies/Adverse Reactions: Penicillins Allergy (Mild, Verified 05/18/19 18:56) FAMILY IS ALLERGIC questionable allergy parents and brother allergic, has never tried it Hx Tetanus, Diphtheria Vaccination/Date Given: No Hx Influenza Vaccination/Date Given: No Hx Pneumococcal Vaccination/Date Given: No - Review of Systems Constitutional: No Fever, No Chills Eyes: No Eye Pain, No Photophobia Ears, Nose, & Throat: No Ear Pain, No Nose Congestion, No Mouth Pain, No Mouth Swelling, No Throat Swelling, No Painful Swallowing Respiratory: No Cough, No Dyspnea Cardiac: No Chest Pain, No Edema, No Syncope Abdominal/Gastrointestinal: No Abdominal Pain, No Nausea, No Vomiting, No Diarrhea Genitourinary Symptoms: Dysuria, Frequency, No Urinary Retention, No Flank Pain , No Vaginal Bleeding, No Vaginal Discharge, No Vaginal Itching Musculoskeletal: No Back Pain, No Neck Pain Skin: No Rash Neurological: No Dizziness, No Focal Weakness, No Sensory Changes Psychological: No Symptoms Endocrine: No Excessive Sweating Hematologic/Lymphatic: No Easy Bleeding, No Easy Bruising All Other Systems: Reviewed and Negative - Past Medical History Pertinent Past Medical History: Yes Neurological History: Migraines ENT History: No Pertinent History Cardiac History: No Pertinent History Respiratory History: No Pertinent History Endocrine Medical History: No Pertinent History Musculoskeletal History: Other GI Medical History: No Pertinent History History: No Pertinent History Psycho-Social History: Anxiety Female Reproductive Disorders: No Pertinent History Other Medical History: Juvenile RA - Past Surgical History Past Surgical History: Yes Neuro Surgical History: No Pertinent History Cardiac: No Pertinent History Respiratory: No Pertinent History Gastrointestinal: Appendectomy, Cholecystectomy Genitourinary: No Pertinent History Musculoskeletal: No Pertinent History Female Surgical History: Section Other Surgical History: tubes in ears - Social History Smoking Status: Current every day smoker How long have you smoked: 7 yrs Exposure to second hand smoke: Yes Drug Use: none Patient Lives Alone: No - Female History Hx Last Menstrual Period: 3 weeks ago Hx Now: No - Nursing Vital Signs Nursing Vital Signs: Initial Vital Signs Temperature 98.1 F 08/16/19 21:33 Pulse Rate 96 H 08/16/19 21:33 Respiratory Rate 16 08/16/19 21:33 Blood Pressure 120/78 08/16/19 21:33 O2 Sat by Pulse Oximetry 100 08/16/19 21:33 Pain Scale Pain Intensity 5 - Physical Exam General Appearance: no apparent distress, alert Eye Exam: PERRL/EOMI, eyes nml inspection Ears, Nose, Throat Exam: normal ENT inspection, pharynx normal, moist mucous membranes Neck Exam: normal inspection, non-tender, supple, full range of motion Respiratory Exam: normal breath sounds, lungs clear, No respiratory distress Cardiovascular Exam: regular rate/rhythm, normal heart sounds, normal peripheral pulses, capillary refill <2 sec Gastrointestinal/Abdomen Exam: soft, normal bowel sounds, No tenderness, No distention, No mass, No guarding Back Exam: normal inspection, normal range of motion, No CVA tenderness, No vertebral tenderness Extremity Exam: normal inspection, normal range of motion, pelvis stable Neurologic Exam: alert, 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, cooperative, leather tanner II-XII nml as tested, normal mood/affect, sensation nml, No motor deficits Skin Exam: normal color, warm, dry Lymphatic Exam: No adenopathy SpO2 Interpretation: normal SpO2: 100 O2 Delivery: Room Air Ordered Tests: Active Orders 24 hr Category Date Time Status CULTURE,URINE Stat Lab 08/16/19 21:50 Received HCG,QUALITATIVE URINE Stat Lab 08/16/19 21:50 Completed UA W/RFX UR CULTURE Stat Lab 08/16/19 21:50 Completed Medication Summary Generic Name Dose Route Start Last Admin Trade Name Jody PRN Reason Stop Dose Admin Phenazopyridine HCl 200 mg 08/16/19 10:00 Pyridium 200 Mg PO 09/15/19 09:59 TID ARLET Discontinued Medications Generic Name Dose Route Start Last Admin Trade Name Jody PRN Reason Stop Dose Admin Trimethoprim/Sulfamethoxazole 1 tab 08/16/19 23:03 Bactrim Ds Tablet PO 08/16/19 23:04 STAT STA Lab/Rad Data: Laboratory Results 08/16/19 08/16/19 Range/Units 21:50 21:50 Urine Color YELLOW (YELLOW) Urine Appearance SLIGHTLY CLOUDY (CLEAR) Urine pH 6.0 (5-6) Ur Specific [place] 1.008 (1.005-1.025) Urine Protein NEGATIVE (Negative) Urine Ketones NEGATIVE (NEGATIVE) Urine Blood SMALL (0-5) Alexis/ul Urine Nitrite NEGATIVE (NEGATIVE) Urine Bilirubin NEGATIVE (NEGATIVE) Urine Urobilinogen NEGATIVE (0-1) mg/dL Ur Leukocyte Esterase MODERATE (NEGATIVE) Urine WBC (Auto) >100 (0-5) /HPF Urine RBC (Auto) 6-10 (0-2) /HPF U Epithel Cells (Auto) RARE (FEW) /HPF Urine Bacteria (Auto) RARE (NEGATIVE) /HPF Urine Culture Reflexed YES (NO) Urine Glucose NEGATIVE (NEGATIVE) mg/dL Urine HCG, Qual NEGATIVE (Negative) - Departure Departure Disposition: Home Clinical Impression: Acute cystitis Condition: Good Critical Care Time: No Referrals: RAHEEL KRISHNAMURTHY [Primary Care Provider] - Follow Up with PCP/3 days Instructions: Urinary Tract Infection, Adult (DC) Additional Instructions: Return immediately if any new back pain, new fever, worsening pain with urination, new abdominal pain or any other concerning signs or symptoms that were not present at today's emergency department visit for immediate re- evaluation in the emergency department. Prescriptions: Phenazopyridine HCl 200 mg [Pyridium 200 mg] 200 mg PO TID PRN #6 tablet PRN Reason: Dysuria/Urinary Symptoms Smz/Tmp Ds Tablet [Bactrim Ds Tablet] 1 tab PO Q12H #6 tablet
[2019-08-16 23:12] VITALS: BP 103/66; PULSE 64
[2019-08-16 23:49] LABS: CHLAMYDIA URINE NEGATIVE (NEGATIVE); GC URINE NEGATIVE (NEGATIVE)
== END 2019-08-16 23:19 | disposition home or self-care (01) ==
LOC: ED 21:14
DX: N30.00 Acute cystitis without hematuria (principal)
CPT/HCPCS: 81001; 84703; 87077; 87086; 87186; 87491; 87591; 99283; A9270-GY

== ENCOUNTER 2019-08-22 12:22 | Emergency (ER) | payer MEDICAID ==
[2019-08-22 12:43] VITALS: BP 101/73; PULSE 75
[2019-08-22] MEDS ORDERED: KEFLEX 500 MG PO ONE (12:46)
[2019-08-22] MEDS ORDERED: MOTRIN 600 MG PO ONE (12:46)
[2019-08-22] MEDS ORDERED: MOTRIN 600 MG ONE (12:50)
[2019-08-22] MEDS ORDERED: KEFLEX 500 MG ONE (12:51)
--- NOTE | 2019-08-22 12:52 | ERPHSYRPT ---
- History of Present Illness Time Seen by Provider: 08/22/19 12:42 Source: patient Exam Limitations: no limitations Patient Subjective Stated Complaint: PATIENT STATES " I WOKE UP TO THE RIGHT SIDE OF MY FACE/MOUTH HURTING" Triage Nursing Assessment: PATIENT AMBULATED TO ROOM WITH STEADY GAIT. PATIENT ALERT AND ORIENTATED TIMES 4. PATIENT ABLE TO ANSWER QUESTIONS APPROPRIATLEY. NO SWELLING NOTED TO RIGHT SIDE OF FACE/MOUTH NOTED. UPON ASSESSMENT OF INSIDE MOUTH NO ABSCESS OR SWELLING NOTED TO GUMS. NO ACTIBE BLEEDING OR DRAINAGE NOTED FROM ANY GUMS ETC. IN MOUTH. Physician History: since about 90 minutes ago pt has had right upper tooth > right lower tooth pain with right earache and right facial pain; denies nausea, vomiting, fever, chest pain. Allergies/Adverse Reactions: Penicillins Allergy (Mild, Verified 05/18/19 18:56) FAMILY IS ALLERGIC questionable allergy parents and brother allergic, has never tried it Hx Tetanus, Diphtheria Vaccination/Date Given: No Hx Influenza Vaccination/Date Given: No Hx Pneumococcal Vaccination/Date Given: No Immunizations Up to Date: No - Review of Systems Constitutional: No Fever Ears, Nose, & Throat: Ear Pain (right), Mouth Pain (right sided for the past 90 minutes.) Respiratory: No Dyspnea Cardiac: No Chest Pain Abdominal/Gastrointestinal: No Abdominal Pain, No Nausea, No Vomiting All Other Systems: Reviewed and Negative - Past Medical History Pertinent Past Medical History: Yes Neurological History: Migraines ENT History: No Pertinent History Cardiac History: No Pertinent History Respiratory History: No Pertinent History Endocrine Medical History: No Pertinent History Musculoskeletal History: Other GI Medical History: No Pertinent History History: No Pertinent History Psycho-Social History: Anxiety Female Reproductive Disorders: No Pertinent History Other Medical History: Juvenile RA - Past Surgical History Past Surgical History: Yes Neuro Surgical History: No Pertinent History Cardiac: No Pertinent History Respiratory: No Pertinent History Gastrointestinal: Appendectomy, Cholecystectomy Genitourinary: No Pertinent History Musculoskeletal: No Pertinent History Female Surgical History: Section Other Surgical History: tubes in ears - Social History Smoking Status: Current every day smoker How long have you smoked: 7 YEARS Exposure to second hand smoke: Yes Drug Use: none Patient Lives Alone: No - Female History Hx Last Menstrual Period: UNSURE Hx Now: No - Nursing Vital Signs Nursing Vital Signs: Initial Vital Signs Temperature 98.3 F 08/22/19 12:30 Pulse Rate 75 08/22/19 12:30 Respiratory Rate 16 08/22/19 12:30 Blood Pressure 101/73 08/22/19 12:30 Pain Scale Pain Intensity 7 - Physical Exam General Appearance: alert Eye Exam: bilateral eye: PERRL, EOMI Ear Exam: bilateral ear: other (cerumen occlusion of both ears.) Nasal Exam: normal inspection Throat Exam: pharynx normal, dental tenderness (upper > lower molar tenderness.) , No pharynx swelling Neck Exam: normal inspection Cardiovascular/Respiratory Exam: normal breath sounds, heart sounds normal Abdominal Exam: soft (b.s. normal) Neurologic Exam: alert, cooperative Skin Exam: warm, dry - Course Nursing assessment & vital signs reviewed: Yes Ordered Tests: Medication Summary Generic Name Dose Route Start Last Admin Trade Name Freq PRN Reason Stop Dose Admin Cephalexin HCl 500 mg 08/22/19 12:46 Keflex 500 Mg PO 08/22/19 12:47 STAT ONE Ibuprofen 600 mg 08/22/19 12:46 Motrin 600 Mg PO 08/22/19 12:47 STAT ONE - Departure Departure Disposition: Home Clinical Impression: abscessed tooth Condition: Fair Critical Care Time: No Referrals: RAHEEL KRISHNAMURTHY [Primary Care Provider] - Additional Instructions: follow up with dentist tomorrow. Prescriptions: Naproxen [Naprosyn] 500 mg PO [id number] PRN #14 tablet PRN Reason: Pain Cephalexin Monohydrate [Keflex] 500 mg PO TID #30 capsule
== END 2019-08-22 13:10 | disposition home or self-care (01) ==
LOC: ED 12:22
DX: K04.7 Periapical abscess without sinus (principal)
CPT/HCPCS: 99283; A9270-GY

== ENCOUNTER 2020-02-09 21:47 | Emergency (ER) | payer SELFPAY ==
[2020-02-09] MEDS ORDERED: CLEOCIN 150 MG CAPSULE PO ONE (22:01)
[2020-02-09] MEDS ORDERED: TORAdol 30 mg Injection IM ONE (22:02)
--- NOTE | 2020-02-09 22:10 | ERPHSYRPT ---
- History of Present Illness Time Seen by Provider: 02/09/20 22:10 Source: patient Physician History: Patient is a 24-year-old female presents to our ED with complaints of dental pain. Dental pain has been ongoing for the past few days. Pain is gotten progressively worse. Patient followed up with a dentist and advised extracting all teeth. No trauma. No fever. No nausea or vomiting. No headache. Ache is well localized No radiation. Pain worse with mastication. Pain improved with rest. No obvious swelling. No difficulty swallowing. Patient tolerating oral secretions well. No sublingual masses. No difficulty breathing. Airway patent. Patient is allergic to penicillin. Patient denies the possibility of and declined a test. Timing/Duration: days Severity: moderate ENT Location: dental Prearrival Treatment: no prearrival treatment Modifying Factors: Improves With: other Associated Symptoms: No fever, No change in hearing, No drooling, No ear drainage, No facial pain/swelling, No headache, No hearing loss, No jaw pain, No nasal congestion/drainage, No nasal foreign body, No poor fluid intake, No poor solids intake, No swollen glands, No tooth pain, No difficulty swallowing Allergies/Adverse Reactions: Penicillins Allergy (Mild, Verified 02/09/20 21:55) FAMILY IS ALLERGIC questionable allergy parents and brother allergic, has never tried it Hx Tetanus, Diphtheria Vaccination/Date Given: No Hx Influenza Vaccination/Date Given: No Hx Pneumococcal Vaccination/Date Given: No - Review of Systems Constitutional: No Symptoms, No Fever, No Chills Eyes: No Symptoms Ears, Nose, & Throat: No Symptoms Respiratory: No Symptoms, No Cough, No Dyspnea Cardiac: No Symptoms, No Chest Pain, No Edema, No Syncope Abdominal/Gastrointestinal: No Symptoms, No Abdominal Pain, No Nausea, No Vomiting, No Diarrhea Genitourinary Symptoms: No Symptoms, No Dysuria Musculoskeletal: No Symptoms, No Back Pain, No Neck Pain Skin: No Symptoms, No Rash Neurological: No Symptoms, No Dizziness, No Focal Weakness, No Sensory Changes Psychological: No Symptoms Endocrine: No Symptoms Hematologic/Lymphatic: No Symptoms Immunological/Allergic: No Symptoms All Other Systems: Reviewed and Negative - Past Medical History Pertinent Past Medical History: Yes Neurological History: Migraines ENT History: No Pertinent History Cardiac History: No Pertinent History Respiratory History: No Pertinent History Endocrine Medical History: No Pertinent History Musculoskeletal History: Other GI Medical History: No Pertinent History History: No Pertinent History Psycho-Social History: Anxiety Female Reproductive Disorders: No Pertinent History Other Medical History: Juvenile RA - Past Surgical History Past Surgical History: Yes Neuro Surgical History: No Pertinent History Cardiac: No Pertinent History Respiratory: No Pertinent History Gastrointestinal: Appendectomy, Cholecystectomy Genitourinary: No Pertinent History Musculoskeletal: No Pertinent History Female Surgical History: Section Other Surgical History: tubes in ears - Social History Smoking Status: Current every day smoker How long have you smoked: 7 YEARS Exposure to second hand smoke: Yes Drug Use: none Patient Lives Alone: No - Nursing Vital Signs Nursing Vital Signs: Initial Vital Signs Temperature 98.4 F 02/09/20 22:00 Pulse Rate 99 H 02/09/20 22:00 Respiratory Rate 16 02/09/20 22:00 Blood Pressure 126/76 02/09/20 22:00 O2 Sat by Pulse Oximetry 99 02/09/20 22:00 Pain Scale Pain Intensity 10 - Physical Exam General Appearance: no apparent distress, alert Eye Exam: bilateral eye: normal inspection, PERRL, EOMI Ear Exam: bilateral ear: auricle normal, canal normal, TM normal Nasal Exam: normal inspection Throat Exam: pharynx normal, dental tenderness (Tooth #1 is carious and fractured. There is swelling adjacent to the involved tooth. Patient is developing a dental abscess.), moist mucus membranes, No maxillary swelling, No tonsillar exudate, No trismus Neck Exam: normal inspection, non-tender, supple Cardiovascular/Respiratory Exam: normal breath sounds, regular rate/rhythm, No chest non-tender Abdominal Exam: non-tender, soft Neurologic Exam: alert, 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, sensation nml, No motor deficits Skin Exam: normal color, warm, dry SpO2 Interpretation: normal SpO2: 97 O2 Delivery: Room Air - Course Nursing assessment & vital signs reviewed: Yes Ordered Tests: Medication Summary Discontinued Medications Generic Name Dose Route Start Last Admin Trade Name Freq PRN Reason Stop Dose Admin Clindamycin HCl 300 mg 02/09/20 22:01 02/09/20 22:13 Cleocin 150 Mg Capsule PO 02/09/20 22:02 300 mg STAT ONE Administration Clindamycin HCl Confirm 02/09/20 22:11 Cleocin 150 Mg Capsule Administered 02/09/20 22:12 Dose 300 mg .ROUTE .STK-MED ONE Ketorolac Tromethamine 30 mg 02/09/20 22:02 02/09/20 22:13 Toradol 30 Mg Injection IM 02/09/20 22:03 30 mg STAT ONE Administration Ketorolac Tromethamine Confirm 02/09/20 22:11 Toradol 30 Mg Injection Administered 02/09/20 22:12 Dose 30 mg .ROUTE .STK-MED ONE - Progress Progress: improved Progress Note: 02/09/20 22:11 Patient reassessed. Pain improved. Vitals within normal limits. Antibiotics provided. Patient currently has an appointment scheduled for dental follow-up. Antibiotic prescription forwarded to patient's pharmacy. Plan of care discussed with patient. She agrees to follow-up with her primary care doctor or dentist within 48 hours for reevaluation. - Departure Departure Disposition: Home, Extended Care Facility Clinical Impression: Pain, dental, Dental abscess Condition: Stable Critical Care Time: No Referrals: RAHEEL KRISHNAMURTHY [Primary Care Provider] - Additional Instructions: Discharge/Care Plan BLU ALEXANDER was seen on 02/09/20 in the Emergency Room. The patient was counseled regarding Diagnosis,Lab results, Imaging studies, need for follow up and when to return to the Emergency Room. Prescriptions given: Discharge Note I have spoken with the patient and/or caregivers. I have explained the patient's condition, diagnosis and treatment plan based on the information available to me at this time. I have answered the patient's and/or caregiver's questions and addressed any concerns. The patient and/or caregivers have as good understanding of the patient's diagnosis, condition and treatment plan as can be expected at this point. The vital signs have been stable. The patient's condition is stable and appropriate for discharge from the emergency department. The patient will pursue further outpatient evaluation with the primary care physician or other designated or consulting physician as outlined in the discharge instructions. The patient and/or caregivers are agreeable to this plan of care and follow-up instructions have been explained in detail. The patient and/or caregivers have received these instruction. The patient/and or caregivers are aware that any significant change in condition or worsening of symptoms should prompt an immediate return to this or the closest emergency department or call 911.
[2020-02-09] MEDS ORDERED: CLEOCIN 150 MG CAPSULE ONE (22:11)
[2020-02-09] MEDS ORDERED: TORAdol 30 mg Injection ONE (22:11)
[2020-02-09 22:26] VITALS: BP 114/74; PULSE 90
[2020-02-09 22:28] VITALS: O2SAT 97
== END 2020-02-09 22:33 | disposition home or self-care (01) ==
LOC: ED 21:47
DX: L02.818 Cutaneous abscess of other sites (principal)
CPT/HCPCS: 96372; 99283; J1885; A9270-GY

== ENCOUNTER 2020-04-15 21:58 | Emergency (ER) | payer OTHER ==
[2020-04-15] MEDS ORDERED: TORAdol 30 mg Injection IM ONE (22:31)
[2020-04-15] MEDS ORDERED: TORAdol 30 mg Injection ONE (22:36)
--- NOTE | 2020-04-15 22:50 | ERPHSYRPT ---
- History of Present Illness Time Seen by Provider: 04/15/20 22:20 Source: patient Exam Limitations: no limitations Patient Subjective Stated Complaint: pt states that she has had pain to her rt knee for the past couple of weeks, pt states that she first started to notice her pain a couple of months, pt states that she has trouble when she bends her leg, pt states that the pain has moved to her calf Triage Nursing Assessment: pt ambulated into the er, pt is axo x3, c/o rt knee pain, states 9/10 to rt knee, no swelling, no warmth present to RLE, strong pedal pulses, good cap refill, good ROM, vitals wnl Physician History: 24 years old female with a history of right knee issues in the past presented in the ER with 1 month history of increasing pain with activity and better with resting. Denies any fall trauma or swelling around the knee. Pain is moderate intensity sharp in nature. Method of Injury: unknown Occurred: days ago (24) Quality: intermittent, sharpness Severity of Pain-Max: moderate Severity of Pain-Current: moderate Lower Extremities Pain: knee: right Modifying Factors: Improves With: immobilization, movement Associated Symptoms: No unable to bear weight Allergies/Adverse Reactions: Penicillins Allergy (Mild, Verified 04/15/20 22:02) FAMILY IS ALLERGIC questionable allergy parents and brother allergic, has never tried it Hx Tetanus, Diphtheria Vaccination/Date Given: Yes Hx Influenza Vaccination/Date Given: No Hx Pneumococcal Vaccination/Date Given: No Travel Risk - International Travel Have you traveled outside of the country in past 3 weeks: No - Coronavirus Screening Are you exhibiting any of the following symptoms?: No Close contact with a COVID-19 positive Pt in past 14-21 Days: No - Review of Systems Constitutional: No Symptoms Eyes: No Symptoms Ears, Nose, & Throat: No Symptoms Respiratory: No Symptoms Cardiac: No Symptoms Abdominal/Gastrointestinal: No Symptoms Musculoskeletal: Arthralgias, Joint Pain, No Injury, No Joint Redness Skin: No Symptoms Neurological: No Symptoms Psychological: No Symptoms Endocrine: No Symptoms - Past Medical History Pertinent Past Medical History: Yes Neurological History: Migraines ENT History: No Pertinent History Cardiac History: No Pertinent History Respiratory History: No Pertinent History Endocrine Medical History: No Pertinent History Musculoskeletal History: Other GI Medical History: No Pertinent History History: No Pertinent History Psycho-Social History: Anxiety Female Reproductive Disorders: No Pertinent History Other Medical History: Juvenile RA - Past Surgical History Past Surgical History: Yes Neuro Surgical History: No Pertinent History Cardiac: No Pertinent History Respiratory: No Pertinent History Gastrointestinal: Appendectomy, Cholecystectomy Genitourinary: No Pertinent History Musculoskeletal: No Pertinent History Female Surgical History: Section Other Surgical History: tubes in ears - Social History Smoking Status: Current every day smoker How long have you smoked: 7 YEARS Exposure to second hand smoke: Yes Drug Use: none Patient Lives Alone: No - Female History Hx Now: No - Nursing Vital Signs Nursing Vital Signs: Initial Vital Signs Temperature 98.2 F 04/15/20 22:03 Pulse Rate 83 04/15/20 22:03 Blood Pressure 117/64 04/15/20 22:03 O2 Sat by Pulse Oximetry 99 04/15/20 22:03 Pain Scale Pain Intensity 4 - Physical Exam General Appearance: no apparent distress, alert Eyes, Ears, Nose, Throat Exam: pharynx normal Neck Exam: normal inspection, supple, full range of motion Cardiovascular/Respiratory Exam: normal breath sounds, regular rate/rhythm Legs Exam: bilateral leg: non-tender, normal inspection, normal range of motion Knees Exam: right knee: bone tenderness, pain, soft tissue tenderness, left knee: non-tender, bilateral knee: normal inspection, normal range of motion, no evidence of injury Ankle Exam: bilateral ankle: non-tender, normal inspection, normal range of motion Neuro/Tendon Exam: normal sensation, normal motor functions, normal tendon functions Mental Status Exam: alert, 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, cooperative Skin Exam: normal color SpO2 Interpretation: normal SpO2: 99 O2 Delivery: Room Air - Course Nursing assessment & vital signs reviewed: Yes Ordered Tests: Active Orders 24 hr Category Date Time Status Gerson Bandage Application -[facility] STAT Care 04/15/20 22:54 Completed KNEE (3 VIEWS) Stat Exams 04/15/20 22:30 Taken Medication Summary Discontinued Medications Generic Name Dose Route Start Last Admin Trade Name Costaq PRN Reason Stop Dose Admin Ketorolac Tromethamine 30 mg 04/15/20 22:31 04/15/20 22:48 Toradol 30 Mg Injection IM 04/15/20 22:32 30 mg STAT ONE Administration Ketorolac Tromethamine Confirm 04/15/20 22:36 Toradol 30 Mg Injection Administered 04/15/20 22:37 Dose 30 mg .ROUTE .STK-MED ONE - Progress Progress: improved, pain not gone completely Progress Note: 04/15/20 Toradol for symptomatic relief. X-rays negative for any acute osseous abnormality. Recommended outpatient Ortho clinic follow-up. Gerson wrap applied. Counseled pt/family regarding: diagnosis, need for follow-up, rad results - Departure Departure Disposition: Home Clinical Impression: Right knee pain Qualifiers: Chronicity: unspecified Qualified Code(s): M25.561 - Pain in right knee Condition: Stable Critical Care Time: No Referrals: RAHEEL MARTINEZ [Primary Care Provider] - Follow Up with PCP/3 days FRED MCGILL NP [NON-STAFF PHY W/O PRIVILEGES] - Follow Up with PCP/3 days Instructions: Knee Pain (DC) Additional Instructions: Take Tylenol/ibuprofen as needed for pain. Avoid exertional activities., Gerson wrap. Follow-up with primary care and Ortho clinic for reevaluation. Return to ER for any worsening. Prescriptions: Ibuprofen 600 mg PO Q6HPRN PRN 10 Days #20 tablet PRN Reason: Pain
[2020-04-15 23:05] VITALS: BP 117/78; PULSE 62
[2020-04-15 23:46] VITALS: O2SAT 99
--- NOTE | 2020-04-16 07:10 | XRAY ---
Indication: Pain. No known injury. Comparison: None 3 view right knee obtained. No bony, articular, or soft tissue abnormalities.
== END 2020-04-15 23:03 | disposition home or self-care (01) ==
LOC: ED 21:58
DX: M25.561 Pain in right knee (principal)
CPT/HCPCS: 73562; 96372; 99284; J1885

== ENCOUNTER 2020-12-20 19:30 | Emergency (ER) | payer OTHER ==
[2020-12-20] MEDS ORDERED: Sodium Chloride 0.9% 1000 ML 1,000 ML IV STA (19:56)
[2020-12-20] MEDS ORDERED: Sodium Chloride 0.9% 1000 ML 1,000 ML ONE (20:00)
--- NOTE | 2020-12-20 20:07 | ERPHSYRPT ---
- History of Present Illness Source: patient Exam Limitations: no limitations Patient Subjective Stated Complaint: Pt states she has had migraines the last few days and woke up today feeling "overly tired", went to [facility], and passed out two additional times. Patient states joao informed her she was LOC for 5-10 min each time. 1400,1600,1730 were appromixate times patient lost conciousness. Triage Nursing Assessment: Patient arrived to ER via personal vehicle. Ambulatory, a/o x3. Physician History: 25 yo wf w cc of syncope x3 today. Pt denies injury/focal weakness/chest pain/MEEHAN/N/V//fever/cough/alcohol-drug use. Timing/Duration: today Character of Deficits: none Deficits: no difficulties Baseline/Normal Cognition: alert 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 Current Cognition: alert 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 Baseline Gait: walks w/o assistance Associated Symptoms: denies symptoms Allergies/Adverse Reactions: Penicillins Allergy (Mild, Verified 12/20/20 19:56) FAMILY IS ALLERGIC questionable allergy parents and brother allergic, has never tried it Hx Tetanus, Diphtheria Vaccination/Date Given: Yes Hx Influenza Vaccination/Date Given: No Hx Pneumococcal Vaccination/Date Given: No Travel Risk - International Travel Have you traveled outside of the country in past 3 weeks: No - Coronavirus Screening Are you exhibiting any of the following symptoms?: No Close contact with a COVID-19 positive Pt in past 14-21 Days: No - Vaccine Status Have you recieved a Covid-19 vaccination: No - Review of Systems Constitutional: No Symptoms Eyes: No Symptoms Ears, Nose, & Throat: No Symptoms Respiratory: No Symptoms Cardiac: No Symptoms Abdominal/Gastrointestinal: No Symptoms Genitourinary Symptoms: No Symptoms Musculoskeletal: No Symptoms Skin: No Symptoms Neurological: No Symptoms Psychological: No Symptoms Endocrine: No Symptoms Hematologic/Lymphatic: No Symptoms Immunological/Allergic: No Symptoms - Past Medical History Pertinent Past Medical History: Yes Neurological History: Migraines ENT History: No Pertinent History Cardiac History: No Pertinent History Respiratory History: No Pertinent History Endocrine Medical History: No Pertinent History Musculoskeletal History: Other GI Medical History: No Pertinent History History: No Pertinent History Psycho-Social History: Anxiety Female Reproductive Disorders: No Pertinent History Other Medical History: Juvenile RA - Past Surgical History Past Surgical History: Yes Neuro Surgical History: No Pertinent History Cardiac: No Pertinent History Respiratory: No Pertinent History Gastrointestinal: Appendectomy, Cholecystectomy Genitourinary: No Pertinent History Musculoskeletal: No Pertinent History Female Surgical History: Section Other Surgical History: tubes in ears - Social History Smoking Status: Current every day smoker How long have you smoked: 7 YEARS Exposure to second hand smoke: Yes Drug Use: none Patient Lives Alone: No Significant Family History: no pertinent family hx - Female History Hx Last Menstrual Period: 11/20/20 Hx Now: (unknown) - Nursing Vital Signs Nursing Vital Signs: Initial Vital Signs Temperature 97.2 F 12/20/20 19:37 Pulse Rate 92 H 12/20/20 19:37 Blood Pressure 148/106 12/20/20 19:37 O2 Sat by Pulse Oximetry 99 12/20/20 19:37 Pain Scale Pain Intensity 0 - Chin Coma Scale Best Eye Response ([place]): (4) open spontaneously Best Verbal Response ([place]): (5) oriented Best Motor Response ([place]): (6) obeys commands [place] Total: 15 - Physical Exam General Appearance: no apparent distress Eye Exam: bilateral eye: normal inspection, PERRL, EOMI Ears, Nose, Throat Exam: normal ENT inspection, TMs normal, moist mucous membranes Neck Exam: normal inspection, non-tender, supple, full range of motion, No meningismus, No mass, No Brudzinski, No Kernig's, No carotid bruit Respiratory: normal breath sounds, lungs clear, airway intact, No respiratory distress Cardiovascular: regular rate/rhythm, normal peripheral pulses, No murmur Gastrointestinal: soft, normal bowel sounds, tenderness (Mild diffuse TTP w greatest RUQ/No guarding or rebound/Lap jerson incisions clean,dry, and intact) Back Exam: normal inspection, normal range of motion, No CVA tenderness Extremity Exam: normal inspection, normal range of motion Peripheral Pulses: carotid (R): 2+, carotid (L): 2+ 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, 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, 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 Exam: normal hearing, normal speech, PERRL, No abnormal eye position, No abnormal gag reflex Coordination/Gait: normal finger to nose, normal gait, normal cerebellar function, negative Romberg's sign Motor/Sensory: no motor deficit, no sensory deficit, no pronator drift, negative Babinski's sign DTR: bicep (R): 2+, bicep (L): 2+ Skin Exam: normal color, warm, dry, No rash SpO2 Interpretation: normal SpO2: 99 O2 Delivery: Room Air - Course EKG Interpreted by Me: RATE (NSR/R83/Normal QT-QTc/Poor Rwave progression V2-V3) - CT Exams Head CT Interpretation: Discussed w/radiologist (Neg) Ordered Tests: Active Orders 24 hr Category Date Time Status Handicapped Teacher STAT Care 12/20/20 19:57 Completed Clean Catch Urine Specimen STAT Care 12/20/20 19:56 Completed EKG-ER Only STAT Care 12/20/20 19:56 Completed IV Insertion STAT Care 12/20/20 19:56 Completed HEAD WITHOUT CONTRAST [CT] Stat Exams 12/20/20 20:04 Taken CBC W DIFF Stat Lab 12/20/20 20:14 Completed CMP Stat Lab 12/20/20 20:14 Completed ETHYL ALCOHOL Stat Lab 12/20/20 20:14 Completed HCG,QUALITATIVE URINE Stat Lab 12/20/20 20:00 Completed TROPONIN Q3H Lab 12/20/20 19:45 Completed UA W/RFX UR CULTURE Stat Lab 12/20/20 19:59 Completed Urine Triage Profile Stat Lab 12/20/20 19:59 Completed Medication Summary Discontinued Medications Generic Name Dose Route Start Last Admin Trade Name Costaq PRN Reason Stop Dose Admin Sodium Chloride 1,000 mls @ 999 mls/hr 12/20/20 19:56 12/20/20 21:03 Sodium Chloride 0.9% 1000 Ml IV 12/20/20 20:56 Infused .Q1H1M STA Infusion Sodium Chloride Confirm 12/20/20 20:00 Sodium Chloride 0.9% 1000 Ml Administered 12/20/20 20:01 Dose 1,000 mls @ ud .ROUTE .STK-MED ONE Lab/Rad Data: Laboratory Result Diagrams 12/20/20 20:14 12/20/20 20:14 Laboratory Results 12/20/20 12/20/20 12/20/20 Range/Units 20:14 20:14 20:00 WBC 11.7 H (4.0-10.5) K/mm3 RBC 4.86 (4.1-5.4) M/mm3 Hgb 14.1 (12.0-16.0) gm/dl Hct 45.1 (35-47) % MCV 92.8 (78-100) fl MCH 29.0 (26-32) pg MCHC 31.3 L (32-36) g/dl RDW 13.7 (11.5-14.0) % Plt Count 228 (150-450) K/mm3 MPV 10.6 (7.5-11.0) fl Gran % 68.1 H (36.0-66.0) % Eos # (Auto) 0.19 (0-0.5) Absolute Lymphs (auto) 2.77 (1.0-4.6) Absolute Monos (auto) 0.72 (0.0-1.3) Lymphocytes % 23.8 L (24.0-44.0) % Monocytes % 6.2 (0.0-12.0) % Eosinophils % 1.6 (0.00-5.0) % Basophils % 0.3 (0.0-0.4) % Absolute Granulocytes 7.95 H (1.4-6.9) Basophils # 0.03 (0-0.4) Sodium 140 (137-145) mmol/L Potassium 3.7 (3.5-5.1) mmol/L Chloride 104 (98-107) mmol/L Carbon Dioxide 25 (22-30) mmol/L Anion Gap 15.6 H (5-15) MEQ/L BUN 5 L (7-17) mg/dL Creatinine 0.59 (0.52-1.04) mg/dL Estimated GFR > 60.0 ML/MIN Glucose 87 (74-106) mg/dL Calcium 10.0 (8.4-10.2) mg/dL Total Bilirubin 0.40 (0.2-1.3) mg/dL AST 21 (14-36) U/L ALT 14 (0-35) U/L Alkaline Phosphatase 68 (38-126) U/L Troponin I (0.000-0.034) ng/mL Serum Total Protein 7.9 (6.3-8.2) g/dL Albumin 4.8 (3.5-5.0) g/dL Urine Color (YELLOW) Urine Appearance (CLEAR) Urine pH (5-6) Ur Specific [place] (1.005-1.025) Urine Protein (Negative) Urine Ketones (NEGATIVE) Urine Blood (0-5) Alexis/ul Urine Nitrite (NEGATIVE) Urine Bilirubin (NEGATIVE) Urine Urobilinogen (0-1) mg/dL Ur Leukocyte Esterase (NEGATIVE) Urine WBC (Auto) (0-5) /HPF Urine RBC (Auto) (0-2) /HPF U Epithel Cells (Auto) (FEW) /HPF Urine Bacteria (Auto) (NEGATIVE) /HPF Urine Mucus (Auto) (NEGATIVE) /HPF Urine Culture Reflexed (NO) Urine Glucose (NEGATIVE) mg/dL Urine HCG, Qual NEGATIVE (Negative) Urine Opiates Level (NEGATIVE) Ur Methadone (NEGATIVE) Urine Barbiturates (NEGATIVE) Ur Phencyclidine (PCP) (NEGATIVE) Urine Amphetamine (NEGATIVE) U Benzodiazepine Level (NEGATIVE) Urine Cocaine (NEGATIVE) Urine Marijuana (THC) (NEGATIVE) Ethyl Alcohol < 10 (0-10) mg/dL 12/20/20 12/20/20 12/20/20 Range/Units 19:59 19:59 19:45 WBC (4.0-10.5) K/mm3 RBC (4.1-5.4) M/mm3 Hgb (12.0-16.0) gm/dl Hct (35-47) % MCV (78-100) fl MCH (26-32) pg MCHC (32-36) g/dl RDW (11.5-14.0) % Plt Count (150-450) K/mm3 MPV (7.5-11.0) fl Gran % (36.0-66.0) % Eos # (Auto) (0-0.5) Absolute Lymphs (auto) (1.0-4.6) Absolute Monos (auto) (0.0-1.3) Lymphocytes % (24.0-44.0) % Monocytes % (0.0-12.0) % Eosinophils % (0.00-5.0) % Basophils % (0.0-0.4) % Absolute Granulocytes (1.4-6.9) Basophils # (0-0.4) Sodium (137-145) mmol/L Potassium (3.5-5.1) mmol/L Chloride (98-107) mmol/L Carbon Dioxide (22-30) mmol/L Anion Gap (5-15) MEQ/L BUN (7-17) mg/dL Creatinine (0.52-1.04) mg/dL Estimated GFR ML/MIN Glucose (74-106) mg/dL Calcium (8.4-10.2) mg/dL Total Bilirubin (0.2-1.3) mg/dL AST (14-36) U/L ALT (0-35) U/L Alkaline Phosphatase (38-126) U/L Troponin I < 0.012 (0.000-0.034) ng/mL Serum Total Protein (6.3-8.2) g/dL Albumin (3.5-5.0) g/dL Urine Color STRAW (YELLOW) Urine Appearance CLEAR (CLEAR) Urine pH 6.0 (5-6) Ur Specific [place] 1.004 (1.005-1.025) Urine Protein NEGATIVE (Negative) Urine Ketones NEGATIVE (NEGATIVE) Urine Blood NEGATIVE (0-5) Alexis/ul Urine Nitrite NEGATIVE (NEGATIVE) Urine Bilirubin NEGATIVE (NEGATIVE) Urine Urobilinogen NEGATIVE (0-1) mg/dL Ur Leukocyte Esterase TRACE (NEGATIVE) Urine WBC (Auto) 6-10 (0-5) /HPF Urine RBC (Auto) NONE (0-2) /HPF U Epithel Cells (Auto) NONE (FEW) /HPF Urine Bacteria (Auto) NONE (NEGATIVE) /HPF Urine Mucus (Auto) SLIGHT (NEGATIVE) /HPF Urine Culture Reflexed NO (NO) Urine Glucose NEGATIVE (NEGATIVE) mg/dL Urine HCG, Qual (Negative) Urine Opiates Level NEGATIVE (NEGATIVE) Ur Methadone NEGATIVE (NEGATIVE) Urine Barbiturates NEGATIVE (NEGATIVE) Ur Phencyclidine (PCP) NEGATIVE (NEGATIVE) Urine Amphetamine NEGATIVE (NEGATIVE) U Benzodiazepine Level NEGATIVE (NEGATIVE) Urine Cocaine NEGATIVE (NEGATIVE) Urine Marijuana (THC) NEGATIVE (NEGATIVE) Ethyl Alcohol (0-10) mg/dL - Progress Progress Note: 12/20/20 21:31 No evidence of syncope/focal weakness/arrythmia in ER Counseled pt/family regarding: lab results, diagnosis, need for follow-up, rad results - Departure Departure Disposition: Home Clinical Impression: Syncope and collapse, UTI (urinary tract infection) Condition: Stable Critical Care Time: No Referrals: RAHEEL MARTINEZ [Primary Care Provider] - Instructions: Urinary Tract Infection, Adult (DC), Syncope (Fainting) (DC) Additional Instructions: Follow up with your family MD in 1-2 days [address] until cleared by family MD Start Macrobid twice a day Return to ER for focal weakness/Temperature greater than 100.5/Headache/passing out episodes Prescriptions: Nitrofurantoin Macro 100 mg [Macrobid 100MG Capsule] 100 mg PO BID #14 cap
[2020-12-20 20:11] LABS: Appearance CLEAR (CLEAR); Bilirubin NEGATIVE (NEGATIVE); Blood NEGATIVE Ery/ul (0-5); Glucose NEGATIVE (NEGATIVE); Ketones NEGATIVE (NEGATIVE); Leukocyte Esterase TRACE (NEGATIVE); Mucus SLIGHT /HPF (NEGATIVE); Nitrite NEGATIVE (NEGATIVE); Protein,Urine Dip NEGATIVE (Negative); Specific Gravity 1.004 (1.005-1.025); Urobilinogen NEGATIVE mg/dL (0-1)
[2020-12-20 20:18] LABS: Absolute Neutrophil Ct (ANC) 7.95 (1.4-6.9); BASOPHIL % 0.3 % (0.0-0.4); Basophil (Absolute #) 0.03 (0-0.4); Eosinophil % 1.6 % (0.00-5.0); Eosinophil (Absolute #) 0.19 (0-0.5); Hematocrit 45.1 % (35-47); Hemoglobin 14.1 gm/dl (12.0-16.0); Lymphocyte (Absolute #) 2.77 (1.0-4.6); Lymphocytes % 23.8 % (24.0-44.0); Mean Cell Volume 92.8 fl (78-100); Mean Corpuscular Hgb Concent. 31.3 g/dl (32-36); Mean Platelet Volume 10.6 fl (7.5-11.0); Monocyte (Absolute #) 0.72 (0.0-1.3); Monocytes % 6.2 % (0.0-12.0); Neutrophil % 68.1 % (36.0-66.0); Platelet Count 228 K/mm3 (150-450); Red Blood Count 4.86 M/mm3 (4.1-5.4); Red Cell Distribution Width 13.7 % (11.5-14.0); White Blood Count 11.7 K/mm3 (4.0-10.5)
[2020-12-20 20:23] LABS: Amphetamine,Urine NEGATIVE (NEGATIVE); Barbiturate,Urine NEGATIVE (NEGATIVE); Benzodiazepine,Urine NEGATIVE (NEGATIVE); Cocaine,Urine NEGATIVE (NEGATIVE); Methadone,Urine NEGATIVE (NEGATIVE); Opiate,Urine NEGATIVE (NEGATIVE); PCP,Urine NEGATIVE (NEGATIVE); THC,Urine NEGATIVE (NEGATIVE)
[2020-12-20 20:38] LABS: ALBUMIN 4.8 g/dL (3.5-5.0); ALKALINE PHOSPHATASE 68 U/L (38-126); ANION GAP 15.6 MEQ/L (5-15); BLOOD UREA NITROGEN 5 mg/dL (7-17); CHLORIDE 104 mmol/L (98-107); Carbon Dioxide 25 mmol/L (22-30); Creatinine 1 0.59 mg/dL (0.52-1.04); EST GLOMERULAR FILTRATION RATE > 60.0 ML/MIN; ETHYL ALCOHOL < 10 mg/dL (0-10); Glucose 87 mg/dL (74-106); Potassium 3.7 mmol/L (3.5-5.1); SGOT/AST 21 U/L (14-36); SGPT/ALT 14 U/L (0-35); SODIUM 140 mmol/L (137-145); Total Protein 7.9 g/dL (6.3-8.2)
[2020-12-20 21:37] VITALS: BP 114/71; PULSE 76
[2020-12-20 23:40] VITALS: O2SAT 99
--- NOTE | 2020-12-21 09:04 | XRAY ---
Indication: Syncope. Left frontal migraine. Status post fall. Multiple contiguous axial images obtained through the head without contrast. Comparison: August 07, 2016. Normal appearing brain parenchyma, ventricles, and bony calvarium. Visualized paranasal sinuses and mastoid air cells are clear. Impression: Continued normal CT head without contrast exam.
== END 2020-12-20 21:43 | disposition home or self-care (01) ==
LOC: ED 19:30
DX: R55 Syncope and collapse (principal); N39.0 Urinary tract infection, site not specified
CPT/HCPCS: 36000; 36415; 70450; 80053; 80307; 81001; 84484; 84703; 85025; 93005; 93041; 96360; 99284; G0480

== ENCOUNTER 2021-05-22 15:51 | Emergency (ER) | payer OTHER ==
[2021-05-22] MEDS ORDERED: TYLENOL 325 MG PO ONE (16:40)
[2021-05-22] MEDS ORDERED: Reglan 10 MG/2 ML IV ONE (16:40)
[2021-05-22] MEDS ORDERED: TORAdol 30 mg Injection IV ONE (16:40)
[2021-05-22] MEDS ORDERED: BENADRYL 50 MG/ML IV ONE (16:40)
[2021-05-22] MEDS ORDERED: TORAdol 30 mg Injection ONE (16:44)
[2021-05-22] MEDS ORDERED: BENADRYL 50 MG/ML ONE (16:44)
[2021-05-22] MEDS ORDERED: TYLENOL 325 MG ONE (16:45)
[2021-05-22] MEDS ORDERED: Reglan 10 MG/2 ML ONE (16:45)
[2021-05-22 17:33] VITALS: O2SAT 100
[2021-05-22 17:35] LABS: Absolute Neutrophil Ct (ANC) 6.64 (1.4-6.9); BASOPHIL % 0.3 % (0.0-0.4); Basophil (Absolute #) 0.03 (0-0.4); Eosinophil % 2.3 % (0.00-5.0); Eosinophil (Absolute #) 0.24 (0-0.5); Hematocrit 38.1 % (35-47); Hemoglobin 11.8 gm/dl (12.0-16.0); Lymphocyte (Absolute #) 2.49 (1.0-4.6); Lymphocytes % 24.1 % (24.0-44.0); Mean Cell Volume 90.3 fl (78-100); Mean Platelet Volume 10.5 fl (7.5-11.0); Monocyte (Absolute #) 0.92 (0.0-1.3); Monocytes % 8.9 % (0.0-12.0); Neutrophil % 64.4 % (36.0-66.0); Platelet Count 229 K/mm3 (150-450); Red Blood Count 4.22 M/mm3 (4.1-5.4); Red Cell Distribution Width 13.7 % (11.5-14.0); White Blood Count 10.3 K/mm3 (4.0-10.5)
[2021-05-22 17:36] LABS: Appearance CLEAR (CLEAR); Bacteria MODERATE /HPF (NEGATIVE); Bilirubin NEGATIVE (NEGATIVE); Blood NEGATIVE Ery/ul (0-5); Epithelial Cells RARE /HPF (FEW); Glucose NEGATIVE (NEGATIVE); Ketones NEGATIVE (NEGATIVE); Leukocyte Esterase NEGATIVE (NEGATIVE); Nitrite NEGATIVE (NEGATIVE); Protein,Urine Dip NEGATIVE (Negative); Specific Gravity 1.002 (1.005-1.025); Urobilinogen NEGATIVE mg/dL (0-1)
[2021-05-22 17:40] LABS: ALBUMIN 4.2 g/dL (3.5-5.0); ALKALINE PHOSPHATASE 61 U/L (38-126); ANION GAP 12.2 MEQ/L (5-15); BLOOD UREA NITROGEN 5 mg/dL (7-17); CHLORIDE 106 mmol/L (98-107); Calcium 9.4 mg/dL (8.4-10.2); Carbon Dioxide 24 mmol/L (22-30); Creatinine 1 0.53 mg/dL (0.52-1.04); EST GLOMERULAR FILTRATION RATE > 60.0 ML/MIN; Glucose 92 mg/dL (74-106); LIPASE 69 U/L (23-300); Potassium 3.7 mmol/L (3.5-5.1); SGOT/AST 20 U/L (14-36); SGPT/ALT 13 U/L (0-35); SODIUM 139 mmol/L (137-145); Total Protein 6.9 g/dL (6.3-8.2)
[2021-05-22 18:02] VITALS: BP 95/58; PULSE 65
--- NOTE | 2021-05-22 18:19 | ERPHSYRPT ---
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 Describes the pain as a sharp tightness that "comes and goes." Indicates pain started on Friday evening. Denies frequency, urgency, dysuria, changes in bowel habits, or any injury/trauma to area. Also indicates she has some abdominal discomfort when eating but is not having N/V. Patient states, "I felt this way when I was with my second child but I took a test at home this morning and it was negative." Triage Nursing Assessment: Patient ambulated back to ED without difficulties or abnormal gait. She is alert and oriented and answers questions appropriately. No skin discoloration or alterations noted to lower back. Abdomen is soft and round but patient c/o some increased tenderness to right lower quad with palpation. Bowel sounds very hypoactive. Physician History: 25 years old female with history of migraines scented in the ER with chief complaint of left lower back pain since yesterday moderate intensity, dull aching to sharp in nature, more with activity and better with resting. Nonradiating. Denies any associated urinary symptoms like dysuria, frequency, urgency or hesitancy. No fever or chills reported. Denies any hematuria. No vaginal bleeding or discharge. Does have history of migraines and is having moderate intensity sharp throbbing pain all over without any visual symptoms, numbness tingling or focal weakness. Denies any sick contact. She has been taking ibuprofen which helps with back pain but not much with migraine. Heada arden is similar to previous episodes and does not think this is the worst headache of her life. Timing/Duration: yesterday, intermittent, gradual onset, worse Severity: moderate Modifying Factors: Improves With: ibuprofen. Worsens With: movement Associated Symptoms: headaches, No nausea, No vomiting, No abdominal pain, No shortness of breath, No loss of appetite, No malaise, No syncope, No seizure Allergies/Adverse Reactions: Penicillins Allergy (Mild, Verified 05/22/21 16:24) FAMILY IS ALLERGIC questionable allergy parents and brother allergic, has never tried it Hx Tetanus, Diphtheria Vaccination/Date Given: Yes Hx Influenza Vaccination/Date Given: No Hx Pneumococcal Vaccination/Date Given: No Immunizations Up to Date: Yes Travel Risk - International Travel Have you traveled outside of the country in past 3 weeks: No - Coronavirus Screening Are you exhibiting any of the following symptoms?: No Close contact with a COVID-19 positive Pt in past 14-21 Days: No - Vaccine Status Have you recieved a Covid-19 vaccination: No - Review of Systems Constitutional: No Symptoms Eyes: No Symptoms Ears, Nose, & Throat: No Symptoms Respiratory: No Symptoms Cardiac: No Symptoms Abdominal/Gastrointestinal: No Symptoms Genitourinary Symptoms: No Symptoms Musculoskeletal: Back Pain Skin: No Symptoms Neurological: Headache Psychological: No Symptoms Endocrine: No Symptoms Hematologic/Lymphatic: No Symptoms - Past Medical History Pertinent Past Medical History: Yes Neurological History: Migraines ENT History: No Pertinent History Cardiac History: No Pertinent History Respiratory History: No Pertinent History Endocrine Medical History: No Pertinent History Musculoskeletal History: Other GI Medical History: No Pertinent History History: No Pertinent History Psycho-Social History: Anxiety Female Reproductive Disorders: No Pertinent History Other Medical History: Juvenile RA - Past Surgical History Past Surgical History: Yes Neuro Surgical History: No Pertinent History Cardiac: No Pertinent History Respiratory: No Pertinent History Gastrointestinal: Appendectomy, Cholecystectomy Genitourinary: No Pertinent History Musculoskeletal: No Pertinent History Female Surgical History: Section Other Surgical History: tubes in ears - Social History Smoking Status: Current every day smoker How long have you smoked: 7 YEARS Exposure to second hand smoke: Yes Drug Use: none Patient Lives Alone: No Significant Family History: no pertinent family hx - Female History Hx Last Menstrual Period: 6 weeks ago Hx Now: No (unsure) - Nursing Vital Signs Nursing Vital Signs: Initial Vital Signs Temperature 97.5 F 05/22/21 16:03 Pulse Rate 87 05/22/21 16:03 Respiratory Rate 20 05/22/21 16:03 Blood Pressure 114/72 05/22/21 16:03 O2 Sat by Pulse Oximetry 92 L 05/22/21 16:03 Pain Scale Pain Intensity [Lower back] 3 Pain Intensity 0 - Physical Exam General Appearance: no apparent distress, alert Eye Exam: PERRL/EOMI, eyes nml inspection Ears, Nose, Throat Exam: normal ENT inspection, TMs normal, pharynx normal Neck Exam: normal inspection, non-tender, supple, full range of motion, No meningismus Respiratory Exam: normal breath sounds, lungs clear Cardiovascular Exam: regular rate/rhythm, normal heart sounds Gastrointestinal/Abdomen Exam: soft, normal bowel sounds, No tenderness, No distention, No guarding Back Exam: normal inspection, normal range of motion, muscle spasm (Left sacroiliac area), No CVA tenderness, No vertebral tenderness Extremity Exam: normal inspection, normal range of motion, pelvis stable Neurologic Exam: alert, 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, cooperative, circuitry negative inspector II-XII nml as tested, normal mood/affect, nml cerebellar function, nml station & gait, sensation nml, motor deficits Skin Exam: normal color SpO2 Interpretation: normal SpO2: 100 O2 Delivery: Room Air Ordered Tests: Active Orders 24 hr Category Date Time Status IV Insertion STAT Care 05/22/21 16:42 Active CBC W DIFF Stat Lab 05/22/21 17:18 Completed CMP Stat Lab 05/22/21 17:18 Completed HCG,QUALITATIVE URINE Stat Lab 05/22/21 16:41 Completed LIPASE Stat Lab 05/22/21 17:18 Completed UA W/RFX UR CULTURE Stat Lab 05/22/21 17:41 Completed Medication Summary Discontinued Medications Generic Name Dose Route Start Last Admin Trade Name Jody PRN Reason Stop Dose Admin Acetaminophen 975 mg 05/22/21 16:40 05/22/21 16:46 Acetaminophen 325 Mg Tablet PO 05/22/21 16:41 975 mg STAT ONE Administration Acetaminophen Confirm 05/22/21 16:45 Acetaminophen 325 Mg Tablet Administered 05/22/21 16:46 Dose 975 mg .ROUTE .STK-MED ONE Diphenhydramine HCl 25 mg 05/22/21 16:40 05/22/21 16:47 Diphenhydramine Hcl 50 Mg/Ml Vial IV 05/22/21 16:41 25 mg STAT ONE Administration Diphenhydramine HCl Confirm 05/22/21 16:44 Diphenhydramine Hcl 50 Mg/Ml Vial Administered 05/22/21 16:45 Dose 50 mg .ROUTE .STK-MED ONE Ketorolac Tromethamine 30 mg 05/22/21 16:40 05/22/21 16:47 Ketorolac Tromethamine 30 Mg/Ml Inj IV 05/22/21 16:41 30 mg STAT ONE Administration Ketorolac Tromethamine Confirm 05/22/21 16:44 Ketorolac Tromethamine 30 Mg/Ml Inj Administered 05/22/21 16:45 Dose 30 mg .ROUTE .STK-MED ONE Metoclopramide HCl 10 mg 05/22/21 16:40 05/22/21 16:48 Metoclopramide Hcl 10 Mg/2 Ml Vial IV 05/22/21 16:41 10 mg STAT ONE Administration Metoclopramide HCl Confirm 05/22/21 16:45 Metoclopramide Hcl 10 Mg/2 Ml Vial Administered 05/22/21 16:46 Dose 10 mg .ROUTE .STK-MED ONE Lab/Rad Data: Laboratory Result Diagrams 05/22/21 17:18 05/22/21 17:18 Laboratory Results 05/22/21 05/22/21 05/22/21 Range/Units 17:41 17:18 17:18 WBC 10.3 (4.0-10.5) K/mm3 RBC 4.22 (4.1-5.4) M/mm3 Hgb 11.8 L (12.0-16.0) gm/dl Hct 38.1 (35-47) % MCV 90.3 (78-100) fl MCH 28.0 (26-32) pg MCHC 31.0 L (32-36) g/dl RDW 13.7 (11.5-14.0) % Plt Count 229 (150-450) K/mm3 MPV 10.5 (7.5-11.0) fl Gran % 64.4 (36.0-66.0) % Eos # (Auto) 0.24 (0-0.5) Absolute Lymphs (auto) 2.49 (1.0-4.6) Absolute Monos (auto) 0.92 (0.0-1.3) Lymphocytes % 24.1 (24.0-44.0) % Monocytes % 8.9 (0.0-12.0) % Eosinophils % 2.3 (0.00-5.0) % Basophils % 0.3 (0.0-0.4) % Absolute Granulocytes 6.64 (1.4-6.9) Basophils # 0.03 (0-0.4) Sodium 139 (137-145) mmol/L Potassium 3.7 (3.5-5.1) mmol/L Chloride 106 (98-107) mmol/L Carbon Dioxide 24 (22-30) mmol/L Anion Gap 12.2 (5-15) MEQ/L BUN 5 L (7-17) mg/dL Creatinine 0.53 (0.52-1.04) mg/dL Estimated GFR > 60.0 ML/MIN Glucose 92 (74-106) mg/dL Calcium 9.4 (8.4-10.2) mg/dL Total Bilirubin 0.30 (0.2-1.3) mg/dL AST 20 (14-36) U/L ALT 13 (0-35) U/L Alkaline Phosphatase 61 (38-126) U/L Serum Total Protein 6.9 (6.3-8.2) g/dL Albumin 4.2 (3.5-5.0) g/dL Lipase 69 (23-300) U/L Urine Color STRAW (YELLOW) Urine Appearance CLEAR (CLEAR) Urine pH 6.0 (5-6) Ur Specific [place] 1.002 (1.005-1.025) Urine Protein NEGATIVE (Negative) Urine Ketones NEGATIVE (NEGATIVE) Urine Blood NEGATIVE (0-5) Alexis/ul Urine Nitrite NEGATIVE (NEGATIVE) Urine Bilirubin NEGATIVE (NEGATIVE) Urine Urobilinogen NEGATIVE (0-1) mg/dL Ur Leukocyte Esterase NEGATIVE (NEGATIVE) Urine WBC (Auto) 3-5 (0-5) /HPF Urine RBC (Auto) NONE (0-2) /HPF U Epithel Cells (Auto) RARE (FEW) /HPF Urine Bacteria (Auto) MODERATE (NEGATIVE) /HPF Urine Culture Reflexed NO (NO) Urine Glucose NEGATIVE (NEGATIVE) mg/dL Urine HCG, Qual (Negative) 05/22/21 Range/Units 16:41 WBC (4.0-10.5) K/mm3 RBC (4.1-5.4) M/mm3 Hgb (12.0-16.0) gm/dl Hct (35-47) % MCV (78-100) fl MCH (26-32) pg MCHC (32-36) g/dl RDW (11.5-14.0) % Plt Count (150-450) K/mm3 MPV (7.5-11.0) fl Gran % (36.0-66.0) % Eos # (Auto) (0-0.5) Absolute Lymphs (auto) (1.0-4.6) Absolute Monos (auto) (0.0-1.3) Lymphocytes % (24.0-44.0) % Monocytes % (0.0-12.0) % Eosinophils % (0.00-5.0) % Basophils % (0.0-0.4) % Absolute Granulocytes (1.4-6.9) Basophils # (0-0.4) Sodium (137-145) mmol/L Potassium (3.5-5.1) mmol/L Chloride (98-107) mmol/L Carbon Dioxide (22-30) mmol/L Anion Gap (5-15) MEQ/L BUN (7-17) mg/dL Creatinine (0.52-1.04) mg/dL Estimated GFR ML/MIN Glucose (74-106) mg/dL Calcium (8.4-10.2) mg/dL Total Bilirubin (0.2-1.3) mg/dL AST (14-36) U/L ALT (0-35) U/L Alkaline Phosphatase (38-126) U/L Serum Total Protein (6.3-8.2) g/dL Albumin (3.5-5.0) g/dL Lipase (23-300) U/L Urine Color (YELLOW) Urine Appearance (CLEAR) Urine pH (5-6) Ur Specific [place] (1.005-1.025) Urine Protein (Negative) Urine Ketones (NEGATIVE) Urine Blood (0-5) Alexis/ul Urine Nitrite (NEGATIVE) Urine Bilirubin (NEGATIVE) Urine Urobilinogen (0-1) mg/dL Ur Leukocyte Esterase (NEGATIVE) Urine WBC (Auto) (0-5) /HPF Urine RBC (Auto) (0-2) /HPF U Epithel Cells (Auto) (FEW) /HPF Urine Bacteria (Auto) (NEGATIVE) /HPF Urine Culture Reflexed (NO) Urine Glucose (NEGATIVE) mg/dL Urine HCG, Qual NEGATIVE (Negative) - Progress Progress: improved Progress Note: 05/22/21 18:17 She has negative baseline work-up. Abdominal exam is soft nontender, do not think needs any imaging. Given migraine cocktail and is headache free. Nonfocal neuro exam. Does not think this is the worst headache of her life and is typical migraine. Recommended taking Tylenol ibuprofen as needed and outpatient follow-up. Discussed signs and symptoms of worsening needing return to ER which she seems understanding. Counseled pt/family regarding: lab results, diagnosis, need for follow-up - Departure Departure Disposition: Home Clinical Impression: Low back strain Qualifiers: Encounter type: initial encounter Qualified Code(s): S39.012A - Strain of muscle, fascia and tendon of lower back, initial encounter Migraine Qualifiers: Migraine type: unspecified Status migrainosus presence: without status migrainosus Intractability: not intractable Qualified Code(s): G43.909 - Migraine, unspecified, not intractable, without status migrainosus Condition: Stable Critical Care Time: No Referrals: RAHEEL DIAZ [Primary Care Provider] - Follow Up with PCP/3 days Instructions: Low Back Pain (DC), Migraines (DC) Additional Instructions: Take Tylenol/ibuprofen as needed. Follow-up with primary care for reevaluation. Return to ER for worsening headache, numbness tingling focal weakness. Also return to ER if for worsening low back pain, numbness tingling weakness of lower extremities/loss of bowel or bladder control or pain shifting to abdomen / with any urinary symptoms.
== END 2021-05-22 18:33 | disposition home or self-care (01) ==
LOC: ED 15:51
DX: G43.909 Migraine, unspecified, not intractable, without status migrainosus (principal); S39.012A Strain of muscle, fascia and tendon of lower back, initial encounter; M54.50 Low back pain, unspecified
CPT/HCPCS: 36000; 36415; 80053; 81001; 83690; 84703; 85025; 96374; 96375; 99284; J1200; J1885; A9270-GY

== ENCOUNTER 2022-02-10 22:16 | Emergency (ER) | payer OTHER ==
[2022-02-10 23:01] LABS: Absolute Neutrophil Ct (ANC) 6.67 x10^3/uL (1.4-6.9); Basophil (Absolute #) 0.05 x10^3/uL (0-0.4); Eosinophil % 1.7 % (0.00-5.0); Eosinophil (Absolute #) 0.18 x10^3/uL (0-0.5); Lymphocyte (Absolute #) 3.21 x10^3/uL (1.0-4.6); Lymphocytes % 29.7 % (24.0-44.0); Mean Cell Volume 86.1 fL (78-100); Mean Corpuscular Hemoglobin 26.5 pg (26-32); Mean Corpuscular Hgb Concent. 30.8 g/dL (32-36); Mean Platelet Volume 9.6 fL (7.5-11.0); Monocyte (Absolute #) 0.69 x10^3/uL (0.0-1.3); Monocytes % 6.4 % (0.0-12.0); Neutrophil % 61.5 % (36.0-66.0); Platelet Count 242 x10^3/uL (150-450); Red Blood Count 4.53 x10^6/uL (4.1-5.4); Red Cell Distribution Width 14.5 % (11.5-14.0); White Blood Count 10.8 x10^3/uL (4.0-10.5)
[2022-02-10 23:12] LABS: Appearance CLOUDY (CLEAR); Bacteria RARE /HPF (NEGATIVE); Bilirubin NEGATIVE (NEGATIVE); Dipstick done @ ? MAIN LAB; Epithelial Cells RARE /HPF (FEW); Glucose NEGATIVE (NEGATIVE); Ketones NEGATIVE (NEGATIVE); Mucus SLIGHT /HPF (NEGATIVE); Nitrite POSITIVE (NEGATIVE); Protein,Urine Dip NEGATIVE (Negative); RBC TRACE-INTACT Ery/ul (0-5); Specific Gravity 1.025 (1.005-1.025); Urobilinogen 0.2 mg/dL (0-1); WBC 26-50 /HPF (0-5)
[2022-02-10 23:13] LABS: Urine Cultured Indicated? YES
[2022-02-10 23:15] LABS: ACETAMINOPHEN < 10 ug/ml (10-30); ALBUMIN 4.2 g/dL (3.5-5.0); ALKALINE PHOSPHATASE 84 U/L (38-126); ANION GAP 13.2 MEQ/L (5-15); BLOOD UREA NITROGEN 8 mg/dL (7-17); CHLORIDE 105 mmol/L (98-107); Carbon Dioxide 23 mmol/L (22-30); Creatinine 1 0.57 mg/dL (0.52-1.04); EST GLOMERULAR FILTRATION RATE > 60.0 ML/MIN; ETHYL ALCOHOL < 10 mg/dL (0-10); Glucose 89 mg/dL (74-106); Potassium 3.5 mmol/L (3.5-5.1); SALICYLATE < 1.0 mg/dL (2-20); SGOT/AST 18 U/L (14-36); SGPT/ALT 10 U/L (0-35); SODIUM 137 mmol/L (137-145); Total Protein 7.4 g/dL (6.3-8.2)
[2022-02-10 23:23] LABS: Amphetamine,Urine NEGATIVE (NEGATIVE); Barbiturate,Urine NEGATIVE (NEGATIVE); Benzodiazepine,Urine NEGATIVE (NEGATIVE); Cocaine,Urine NEGATIVE (NEGATIVE); Methadone,Urine NEGATIVE (NEGATIVE); Opiate,Urine NEGATIVE (NEGATIVE); PCP,Urine NEGATIVE (NEGATIVE); THC,Urine POSITIVE (NEGATIVE)
--- NOTE | 2022-02-10 23:24 | ERPHSYRPT ---
- History of Present Illness Time Seen by Provider: 02/10/22 22:18 Source: patient Exam Limitations: no limitations Patient Subjective Stated Complaint: pt states she has been feeling very stressed the last few days and would like to see about getting some help for that. pt denies suicidal or homicidal ideation. Triage Nursing Assessment: pt alert and oriented, answers questions approp. pt ambulatory with steady gait noted. respirations nonlabored. skin pink warm and dry. pt cooperative and calm. Physician History: 26 years old female with history of anxiety, depression, tobacco abuse presented to the ER with worsening anxiety for the last few days to weeks. Patient reports for the last couple of days she wakes up in the morning and over little things she starts crying and cannot handle routine activities and life. This is progressively worsening to the point that she is not able to take care of her kids. Have low mood most of the time and it happened similar symptoms in the past which led to suicidal ideations which she does not want to happen now and wants some help. She has tried medications in the past which does not seem working and stopped. She wants to talk to someone and more interested in therapy rather than medications. Denies any suicidal or homicidal ideations. Denies ideas of hopelessness, helplessness Timing/Duration: week(s), gradual onset, worse Severity of Symptoms-Max: moderate Severity of Symptoms-Current: moderate Context related to: living circumstances Associated Symptoms: anxiety, depressed, frustrated, No hostile, No hallucinating, No impaired concentration, No ingestion, No insomnia, No paranoid, No suicidal ideation Previous symptoms: same symptoms as today Allergies/Adverse Reactions: Penicillins Allergy (Mild, Verified 02/10/22 22:36) FAMILY IS ALLERGIC questionable allergy parents and brother allergic, has never tried it Hx Tetanus, Diphtheria Vaccination/Date Given: Yes Hx Influenza Vaccination/Date Given: No Hx Pneumococcal Vaccination/Date Given: No Immunizations Up to Date: Yes Travel Risk - International Travel Have you traveled outside of the country in past 3 weeks: No - Coronavirus Screening Are you exhibiting any of the following symptoms?: No Close contact with a COVID-19 positive Pt in past 14-21 Days: No - Vaccine Status Have you recieved a Covid-19 vaccination: No - Past Medical History Pertinent Past Medical History: Yes Neurological History: Migraines ENT History: No Pertinent History Cardiac History: No Pertinent History Respiratory History: No Pertinent History Endocrine Medical History: No Pertinent History Musculoskeletal History: Other GI Medical History: No Pertinent History History: No Pertinent History Psycho-Social History: Anxiety Female Reproductive Disorders: No Pertinent History Other Medical History: Juvenile RA - Past Surgical History Past Surgical History: Yes Neuro Surgical History: No Pertinent History Cardiac: No Pertinent History Respiratory: No Pertinent History Gastrointestinal: Appendectomy, Cholecystectomy Genitourinary: No Pertinent History Musculoskeletal: No Pertinent History Female Surgical History: Section Other Surgical History: tubes in ears - Social History Smoking Status: Current every day smoker How long have you smoked: 8 YEARS Exposure to second hand smoke: Yes Drug Use: none Patient Lives Alone: No Significant Family History: no pertinent family hx - Female History Hx Last Menstrual Period: 3 weeks Hx Now: No - Review of Systems Constitutional: No Symptoms Eyes: No Symptoms Ears, Nose, & Throat: No Symptoms Respiratory: No Symptoms Cardiac: No Symptoms Abdominal/Gastrointestinal: No Symptoms Genitourinary Symptoms: No Symptoms Musculoskeletal: No Symptoms Skin: No Symptoms Neurological: No Symptoms Psychological: Anxiety, Depression, Emotional Lability, No Suicidal Ideations, No Homicidal Ideations Endocrine: No Symptoms Hematologic/Lymphatic: No Symptoms Immunological/Allergic: No Symptoms - Nursing Vital Signs Nursing Vital Signs: Initial Vital Signs Temperature 98.1 F 02/10/22 22:24 Pulse Rate 100 H 02/10/22 22:24 Respiratory Rate 16 02/10/22 22:24 O2 Sat by Pulse Oximetry 99 02/10/22 22:24 Pain Scale Pain Intensity 0 - Physical Exam General Appearance: no apparent distress, alert, anxiety Eyes, Ears, Nose, Throat Exam: normal ENT inspection Neck Exam: normal inspection, supple, full range of motion Respiratory Exam: normal breath sounds, lungs clear Cardiovascular Exam: regular rate/rhythm, normal heart sounds Gastrointestinal/Abdominal Exam: soft, normal bowel sounds, No tenderness Extremities Exam: normal inspection, normal range of motion Current Suicidality: denies suicide plan Neurological 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, 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, 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, 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, No normal mood/affect Appearance: appropriate appearance, appropriate insight Behavior/Eye Contact/Speech: alert & cooperative, good eye contact Thoughts/Hallucinations: normal thought pattern, no apparent hallucination SpO2 Interpretation: normal SpO2: 99 O2 Delivery: Room Air Ordered Tests: Active Orders 24 hr Category Date Time Status Psychiatric Consult STAT Cons 02/11/22 00:51 Active ACETAMINOPHEN Stat Lab 02/10/22 22:59 Completed CBC W DIFF Stat Lab 02/10/22 22:59 Completed CMP Stat Lab 02/10/22 22:59 Completed CULTURE,URINE Stat Lab 02/10/22 23:00 Received ETHYL ALCOHOL Stat Lab 02/10/22 22:59 Completed HCG QUALITATIVE,SERUM Stat Lab 02/10/22 22:59 Completed SALICYLATE Stat Lab 02/10/22 22:59 Completed UA W/RFX CULTURE Stat Lab 02/10/22 23:00 Completed Urine Triage Profile Stat Lab 02/10/22 23:00 Completed Medication Summary Generic Name Dose Route Start Last Admin Trade Name Freq PRN Reason Stop Dose Admin Trimethoprim/Sulfamethoxazole 1 tab 02/11/22 01:52 Smz/Tmp Ds Tablet 1 Tablet PO 02/11/22 01:53 STAT STA Lab/Rad Data: Laboratory Result Diagrams 02/10/22 22:59 02/10/22 22:59 Laboratory Results 02/10/22 02/10/22 02/10/22 Range/Units 23:00 23:00 22:59 WBC (4.0-10.5) x10^3/uL RBC (4.1-5.4) x10^6/uL Hgb (12.0-16.0) g/dL Hct (35-47) % MCV (78-100) fL MCH (26-32) pg MCHC (32-36) g/dL RDW (11.5-14.0) % Plt Count (150-450) x10^3/uL MPV (7.5-11.0) fL Gran % (36.0-66.0) % Immature Gran % (Auto) (0.00-0.4) % Nucleat RBC Rel Count (0.00-0.1) % Eos # (Auto) (0-0.5) x10^3/uL Immature Gran # (Auto) (0.00-0.03) x10^3u/L Absolute Lymphs (auto) (1.0-4.6) x10^3/uL Absolute Monos (auto) (0.0-1.3) x10^3/uL Absolute Nucleated RBC (0.00-0.01) x10^3u/L Lymphocytes % (24.0-44.0) % Monocytes % (0.0-12.0) % Eosinophils % (0.00-5.0) % Basophils % (0.0-0.4) % Absolute Granulocytes (1.4-6.9) x10^3/uL Basophils # (0-0.4) x10^3/uL Sodium (137-145) mmol/L Potassium (3.5-5.1) mmol/L Chloride (98-107) mmol/L Carbon Dioxide (22-30) mmol/L Anion Gap (5-15) MEQ/L BUN (7-17) mg/dL Creatinine (0.52-1.04) mg/dL Estimated GFR ML/MIN Glucose (74-106) mg/dL Calcium (8.4-10.2) mg/dL Total Bilirubin (0.2-1.3) mg/dL AST (14-36) U/L ALT (0-35) U/L Alkaline Phosphatase (38-126) U/L Serum Total Protein (6.3-8.2) g/dL Albumin (3.5-5.0) g/dL Serum , Qual NEGATIVE (Negative) Urinalys Dipstick Clnc MAIN LAB Urine Color YELLOW (YELLOW) Urine Appearance CLOUDY (CLEAR) Urine pH 6.0 (5-6) Ur Specific [place] 1.025 (1.005-1.025) POC Urine Protein Conf NEGATIVE (Negative) Urine Ketones NEGATIVE (NEGATIVE) Urine Nitrite POSITIVE (NEGATIVE) Urine Bilirubin NEGATIVE (NEGATIVE) Urine Urobilinogen 0.2 (0-1) mg/dL Urine Leukocytes TRACE (NEGATIVE) Urine WBC (Auto) 26-50 (0-5) /HPF Urine RBC (Auto) 3-5 (0-2) /HPF U Epithel Cells (Auto) RARE (FEW) /HPF Urine Bacteria (Auto) RARE (NEGATIVE) /HPF Urine RBC TRACE-INTACT (0-5) Alexis/ul Unidentified Crystals 2-5 (NEGATIVE) /HPF Urine Mucus (Auto) SLIGHT (NEGATIVE) /HPF Ur Culture Indicated? YES Urine Glucose NEGATIVE (NEGATIVE) mg/dL Salicylates (2-20) mg/dL Urine Opiates Level NEGATIVE (NEGATIVE) Ur Methadone NEGATIVE (NEGATIVE) Acetaminophen (10-30) ug/ml Urine Barbiturates NEGATIVE (NEGATIVE) Ur Phencyclidine (PCP) NEGATIVE (NEGATIVE) Urine Amphetamine NEGATIVE (NEGATIVE) U Benzodiazepine Level NEGATIVE (NEGATIVE) Urine Cocaine NEGATIVE (NEGATIVE) Urine Marijuana (THC) POSITIVE (NEGATIVE) Ethyl Alcohol (0-10) mg/dL 02/10/22 02/10/22 Range/Units 22:59 22:59 WBC 10.8 H (4.0-10.5) x10^3/uL RBC 4.53 (4.1-5.4) x10^6/uL Hgb 12.0 (12.0-16.0) g/dL Hct 39.0 (35-47) % MCV 86.1 (78-100) fL MCH 26.5 (26-32) pg MCHC 30.8 L (32-36) g/dL RDW 14.5 H (11.5-14.0) % Plt Count 242 (150-450) x10^3/uL MPV 9.6 (7.5-11.0) fL Gran % 61.5 (36.0-66.0) % Immature Gran % (Auto) 0.2 (0.00-0.4) % Nucleat RBC Rel Count 0.0 (0.00-0.1) % Eos # (Auto) 0.18 (0-0.5) x10^3/uL Immature Gran # (Auto) 0.02 (0.00-0.03) x10^3u/L Absolute Lymphs (auto) 3.21 (1.0-4.6) x10^3/uL Absolute Monos (auto) 0.69 (0.0-1.3) x10^3/uL Absolute Nucleated RBC 0.00 (0.00-0.01) x10^3u/L Lymphocytes % 29.7 (24.0-44.0) % Monocytes % 6.4 (0.0-12.0) % Eosinophils % 1.7 (0.00-5.0) % Basophils % 0.5 (0.0-0.4) % Absolute Granulocytes 6.67 (1.4-6.9) x10^3/uL Basophils # 0.05 (0-0.4) x10^3/uL Sodium 137 (137-145) mmol/L Potassium 3.5 (3.5-5.1) mmol/L Chloride 105 (98-107) mmol/L Carbon Dioxide 23 (22-30) mmol/L Anion Gap 13.2 (5-15) MEQ/L BUN 8 (7-17) mg/dL Creatinine 0.57 (0.52-1.04) mg/dL Estimated GFR > 60.0 ML/MIN Glucose 89 (74-106) mg/dL Calcium 9.0 (8.4-10.2) mg/dL Total Bilirubin 0.50 (0.2-1.3) mg/dL AST 18 (14-36) U/L ALT 10 (0-35) U/L Alkaline Phosphatase 84 (38-126) U/L Serum Total Protein 7.4 (6.3-8.2) g/dL Albumin 4.2 (3.5-5.0) g/dL Serum , Qual (Negative) Urinalys Dipstick Clnc Urine Color (YELLOW) Urine Appearance (CLEAR) Urine pH (5-6) Ur Specific [place] (1.005-1.025) POC Urine Protein Conf (Negative) Urine Ketones (NEGATIVE) Urine Nitrite (NEGATIVE) Urine Bilirubin (NEGATIVE) Urine Urobilinogen (0-1) mg/dL Urine Leukocytes (NEGATIVE) Urine WBC (Auto) (0-5) /HPF Urine RBC (Auto) (0-2) /HPF U Epithel Cells (Auto) (FEW) /HPF Urine Bacteria (Auto) (NEGATIVE) /HPF Urine RBC (0-5) Alexis/ul Unidentified Crystals (NEGATIVE) /HPF Urine Mucus (Auto) (NEGATIVE) /HPF Ur Culture Indicated? Urine Glucose (NEGATIVE) mg/dL Salicylates < 1.0 L (2-20) mg/dL Urine Opiates Level (NEGATIVE) Ur Methadone (NEGATIVE) Acetaminophen < 10 L (10-30) ug/ml Urine Barbiturates (NEGATIVE) Ur Phencyclidine (PCP) (NEGATIVE) Urine Amphetamine (NEGATIVE) U Benzodiazepine Level (NEGATIVE) Urine Cocaine (NEGATIVE) Urine Marijuana (THC) (NEGATIVE) Ethyl Alcohol < 10 (0-10) mg/dL - Progress Progress: unchanged Progress Note: 02/11/22 01:50 26-year-old is evaluated for worsening Luis depression symptoms. She has UTI, given Bactrim. She is otherwise medically cleared. [facility] has evaluated patient do not think she needs inpatient psychiatric evaluation and therapy, she is not an imminent threat to self or anyone else. She signed a safety contract and will follow-up outpatient with [facility]. Patient reports worsening of anxiety symptoms but not suicidal at all on repeated questioning. She is being discharged with outpatient follow-up. Discussed signs symptoms of worsening needing return to ER which she seems under standing. - Departure Departure Disposition: Home Clinical Impression: Depressive disorder, Anxiety, UTI (urinary tract infection) Condition: Stable Critical Care Time: No Referrals: RAHEEL DIAZ [Primary Care Provider] - Follow up/PCP as directed (1-2 days for reevaluation) Instructions: Depression, Adult (DC), Anxiety, Adult (DC) Additional Instructions: Follow-up with [facility] for reevaluation as recommended. Call 911/return to ER if having suicidal thoughts intent plan or worsening of symptoms of depression/anxiety etc. Prescriptions: Smz/Tmp Ds Tablet [Bactrim Ds Tablet] 1 udtab PO BID #14 tablet
[2022-02-11 01:09] VITALS: BP 118/69; PULSE 82
[2022-02-11 01:21] VITALS: O2SAT 99
[2022-02-11] MEDS ORDERED: BACTRIM DS TABLET PO STA (01:52)
[2022-02-11] MEDS ORDERED: BACTRIM DS TABLET PO ONE (01:55)
== END 2022-02-11 02:08 | disposition home or self-care (01) ==
LOC: ED 22:16
DX: F41.9 Anxiety disorder, unspecified (principal); F32.A Depression, unspecified; N39.0 Urinary tract infection, site not specified; Z72.0 Tobacco use; Z28.310 Unvaccinated for COVID-19
CPT/HCPCS: 36415; 80053; 80307; 81015; 84703; 85025; 87086; 90791; 99283; G0480; Q3014; 87077; 87186; A9270-GY

== ENCOUNTER 2022-11-03 20:02 | Emergency (ER) | payer OTHER ==
[2022-11-03 22:30] LABS: ADD URINE CULTURE? NO (NO); Appearance Clear (Clear); Bacteria None Seen /HPF (None Seen); Bilirubin Negative (Negative); Blood Negative (Negative); Epithelial Cells None Seen /HPF (None Seen); Glucose, Urine Negative (Negative); Hyaline Casts NONE SEEN /LPF (0-2); Ketones Negative (Negative); Leukocyte Esterase Negative (Negative); Nitrite Negative (Negative); Ph 6.5 (4.6-8.0); Protein,Urine Dip Negative (Negative); RBC 0-2 /HPF (0-5)
--- NOTE | 2022-11-03 23:01 | ERPHSYRPT ---
- History of Present Illness Time Seen by Provider: 11/03/22 23:00 Historian: patient Exam Limitations: no limitations Patient Subjective Stated Complaint: pt states "I have been nauseous since friday. I have thrown up yesterday morning and this morning." Triage Nursing Assessment: Pt ambulatory to bed by self, pt alert and oriented x3, pt c/o nausea since friday along with lower abd and back cramping, pt has vomiting yesterday morning once and this morning once, pt is unk on , pt unsure of last period, pt is sexual active. pt able to keep fluids and food down at this time Physician History: Patient presents w/ a 1-2 week hx of nausea and abd cramping. Last period several months ago. There is a possibility she is . She has been tolerating regular diet. Timing/Duration: week(s) (2) Activities at Onset: none Abdominal Pain Onset Location: RLQ, LLQ, suprapubic Pain Radiation: no radiation Severity of Pain-Max: mild Severity of Pain-Current: mild Associated Symptoms: nausea, vomiting, No diarrhea, No fever/chills Previous symptoms: no prior history Allergies/Adverse Reactions: Penicillins Allergy (Mild, Verified 11/03/22 21:57) FAMILY IS ALLERGIC questionable allergy parents and brother allergic, has never tried it Hx Tetanus, Diphtheria Vaccination/Date Given: Yes Hx Influenza Vaccination/Date Given: No Hx Pneumococcal Vaccination/Date Given: No Immunizations Up to Date: Yes Travel Risk - International Travel Have you traveled outside of the country in past 3 weeks: No - Coronavirus Screening Are you exhibiting any of the following symptoms?: No Close contact with a COVID-19 positive Pt in past 14-21 Days: No - Vaccine Status Have you recieved a Covid-19 vaccination: No - Review of Systems Constitutional: No Symptoms Eyes: No Symptoms Ears, Nose, & Throat: No Symptoms Respiratory: No Symptoms Cardiac: No Symptoms Abdominal/Gastrointestinal: Abdominal Pain, Nausea, Vomiting, No Diarrhea, No Constipation Genitourinary Symptoms: No Symptoms Musculoskeletal: No Symptoms Skin: No Symptoms Neurological: No Symptoms Psychological: No Symptoms Endocrine: No Symptoms - Past Medical History Pertinent Past Medical History: Yes Neurological History: Migraines ENT History: No Pertinent History Cardiac History: No Pertinent History Respiratory History: No Pertinent History Endocrine Medical History: No Pertinent History Musculoskeletal History: Other GI Medical History: No Pertinent History History: No Pertinent History Psycho-Social History: Anxiety Female Reproductive Disorders: No Pertinent History Other Medical History: Juvenile RA - Past Surgical History Past Surgical History: Yes Neuro Surgical History: No Pertinent History Cardiac: No Pertinent History Respiratory: No Pertinent History Gastrointestinal: Appendectomy, Cholecystectomy Genitourinary: No Pertinent History Musculoskeletal: No Pertinent History Female Surgical History: Section Other Surgical History: tubes in ears - Social History Smoking Status: Never smoker How long have you smoked: 8 YEARS Exposure to second hand smoke: Yes Drug Use: marijuana Patient Lives Alone: No Significant Family History: no pertinent family hx - Female History Hx Last Menstrual Period: unk Hx Now: (unk) - Nursing Vital Signs Nursing Vital Signs: Initial Vital Signs Temperature 98.2 F 11/03/22 21:59 Pulse Rate 69 11/03/22 21:59 Respiratory Rate 18 11/03/22 21:59 Blood Pressure 111/74 11/03/22 21:59 O2 Sat by Pulse Oximetry 96 11/03/22 21:59 Pain Scale Pain Intensity 3 - Physical Exam General Appearance: no apparent distress Eye Exam: eyes nml inspection Ears, Nose, Throat Exam: normal ENT inspection Neck Exam: normal inspection Respiratory Exam: normal breath sounds, lungs clear Cardiovascular Exam: normal heart sounds, capillary refill <2 sec Gastrointestinal/Abdomen Exam: soft, normal bowel sounds, No tenderness, No distention, No mass, No guarding, No rebound Back Exam: No CVA tenderness Extremity Exam: normal inspection, normal range of motion, No swelling, No tenderness Neurologic Exam: alert, 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, cooperative Skin Exam: normal color, warm, dry SpO2 Interpretation: normal SpO2: 100 O2 Delivery: Room Air - Course Nursing assessment & vital signs reviewed: Yes Ordered Tests: Active Orders 24 hr Category Date Time Status HCG,QUALITATIVE URINE Stat Lab 11/03/22 22:02 Completed UA W/RFX UR CULTURE Stat Lab 11/03/22 21:59 Completed Medication Summary Discontinued Medications Generic Name Dose Route Start Last Admin Trade Name Freq PRN Reason Stop Dose Admin Ketorolac Tromethamine Confirm 11/03/22 23:27 Ketorolac Tromethamine 30 Mg/Ml Inj Administered 11/03/22 23:28 Dose 60 mg .ROUTE .STK-MED ONE Pyridoxine HCl 100 mg 11/04/22 10:00 11/03/22 23:57 Pyridoxine Hcl 100 Mg Tablet PO 12/04/22 09:59 100 mg DAILY ARLET Administration Lab/Rad Data: Laboratory Results 11/03/22 11/03/22 Range/Units 22:02 21:59 Urine Color Yellow (Yellow) Urine Appearance Clear (Clear) Urine pH 6.5 (4.6-8.0) Ur Specific [place] 1.010 (1.005-1.030) Urine Protein Negative (Negative) Urine Glucose (UA) Negative (Negative) mg/dL Urine Ketones Negative (Negative) Urine Blood Negative (Negative) Urine Nitrite Negative (Negative) Urine Bilirubin Negative (Negative) Urine Urobilinogen 1.0 A (0.2) mg/dL Ur Leukocyte Esterase Negative (Negative) U Hyaline Cast (Auto) NONE SEEN (0-2) /LPF Urine Microscopic RBC 0-2 (0-5) /HPF Urine Microscopic WBC 3-5 (0-5) /HPF Ur Epithelial Cells None Seen (None Seen) /HPF Urine Bacteria None Seen (None Seen) /HPF Urine Culture Reflexed NO (NO) Urine HCG, Qual POSITIVE A (Negative) - Progress Progress: improved Progress Note: 11/04/22 02:10 test positive, given B6 for 1st trimester nausea/vomiting. Advised to f/u w/ OB. Sent B6 to pharmacy. Medical Desision Making - Diagnostic Testing Diagnostic test were ordered, analyzed, and reviewed by me: Yes Radiological Interpretation: Interpreted by me, Reviewed by me - Risk of complications The pt has a mod risk of morbidity or mortality based on: Need for prescription drug management - Departure Departure Disposition: Home Clinical Impression: , Vomiting Condition: Good Critical Care Time: No Referrals: RAHEEL DIAZ [Primary Care Provider] - Follow up/PCP as directed Instructions: Tests Prescriptions: Pyridoxine HCl (Vitamin B6) [Pyridoxine HCl] 25 mg PO Q8H PRN 7 Days #21 tablet PRN Reason: Nausea
[2022-11-03] MEDS ORDERED: TORAdol 30 mg Injection ONE (23:27)
[2022-11-04 00:02] VITALS: BP 97/72; PULSE 93
[2022-11-04 02:11] VITALS: O2SAT 100
[2022-11-04] MEDS ORDERED: Vitamin B-6 (Pyridoxine) 100 MG PO SCH (10:00)
== END 2022-11-04 00:05 | disposition home or self-care (01) ==
LOC: ED 20:02
DX: O21.9 Vomiting of pregnancy, unspecified (principal); R10.9 Unspecified abdominal pain; Z28.310 Unvaccinated for COVID-19
CPT/HCPCS: 81001; 81025; 96372; 99283; J1885; A9270-GY

== ENCOUNTER 2023-03-26 22:37 | Observation (INO) | payer OTHER ==
[2023-03-26 23:06] LABS: Appearance Clear (Clear); Bacteria Few /HPF (None Seen); Bilirubin Negative (Negative); Blood Moderate (Negative); Epithelial Cells None Seen /HPF (None Seen); Glucose, Urine Negative (Negative); Hyaline Casts NONE SEEN /LPF (0-2); Ketones Negative (Negative); Leukocyte Esterase Trace (Negative); Nitrite Positive (Negative); Ph 7.5 (4.6-8.0); Protein,Urine Dip Negative (Negative); RBC 51-100 /HPF (0-5)
[2023-03-26 23:07] LABS: ADD URINE CULTURE? YES (NO)
[2023-03-26 23:14] VITALS: BP 102/60; PULSE 98; RESP 16; TEMP 98.3; O2SAT 98
[2023-03-26 23:16] LABS: Amphetamine,Urine NEGATIVE (NEGATIVE); Barbiturate,Urine NEGATIVE (NEGATIVE); Benzodiazepine,Urine NEGATIVE (NEGATIVE); Cocaine,Urine NEGATIVE (NEGATIVE); Methadone,Urine NEGATIVE (NEGATIVE); Opiate,Urine NEGATIVE (NEGATIVE); PCP,Urine NEGATIVE (NEGATIVE); THC,Urine NEGATIVE (NEGATIVE)
== END 2023-03-26 23:45 | disposition home or self-care (01) ==
LOC: OB 22:37
PROVIDERS: ADMIT Obstetrics & Gynecology; ATTEND Obstetrics & Gynecology
DX: Z34.82 Encounter for supervision of other normal pregnancy, second trimester (principal); Z3A.25 25 weeks gestation of pregnancy
CPT/HCPCS: 80307; 81001; 87086; G0378; G0379

== ENCOUNTER 2023-04-21 09:01 | Emergency (ER) | payer OTHER ==
--- NOTE | 2023-04-21 12:54 | ERPHSYRPT ---
- History of Present Illness Time Seen by Provider: 04/21/23 12:54 Source: patient, family Exam Limitations: clinical condition Physician History: This is a 27-year-old white female patient who was doing a blood glucose test prior to arrival. She was n.p.o. after midnight. However, her last oral intake was approximately 9 to 10:00 PM last night. During her test today, prior to arrival, she had a syncopal episode. Blood sugar was taken and it was 62. Patient is and approximately 29 weeks gestation. She has had episodes of "passing out" in the past. I reviewed old records from this hospital which showed prior episodes of passing out. Patient has a history of anxiety and migraine headaches. Patient has no chest pain. Patient has no abdominal pain. She has no fevers, she denies cough. She did not injure her head. Timing/Duration: today Severity: mild (To moderate) Character of Deficits: new weakness (Generalized weakness) Deficits: no difficulties Baseline/Normal Cognition: alert 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 Baseline Gait: walks w/o assistance Associated Symptoms: fatigue, weakness, No fever, No chills, No loss of consciousness, No nausea, No vomiting, No chest pain Allergies/Adverse Reactions: Penicillins Allergy (Mild, Verified 03/26/23 23:17) FAMILY IS ALLERGIC questionable allergy parents and brother allergic, has never tried it Home Medications: Ferrous Sulfate [Ferosul] 325 mg PO DAILY 04/21/23 [History] Levothyroxine Sodium 50 Mcg [Synthroid 50 Mcg] 50 mcg PO DAILY 04/21/23 [History] Vit No.179/Iron/Folic [ Tablet] 1 tab PO DAILY 04/21/23 [History] Hx Tetanus, Diphtheria Vaccination/Date Given: Yes Hx Influenza Vaccination/Date Given: No Hx Pneumococcal Vaccination/Date Given: No Travel Risk - International Travel Have you traveled outside of the country in past 3 weeks: No If Yes, where;: N - Coronavirus Screening Are you exhibiting any of the following symptoms?: No Close contact with a COVID-19 positive Pt in past 14-21 Days: No - Vaccine Status Have you recieved a Covid-19 vaccination: No - Review of Systems Constitutional: Weakness Eyes: No Symptoms Ears, Nose, & Throat: No Symptoms Respiratory: No Symptoms Cardiac: No Symptoms Abdominal/Gastrointestinal: No Symptoms Genitourinary Symptoms: No Symptoms Musculoskeletal: No Symptoms Skin: No Symptoms Neurological: No Symptoms Psychological: No Symptoms Endocrine: No Symptoms Hematologic/Lymphatic: No Symptoms Immunological/Allergic: No Symptoms All Other Systems: Reviewed and Negative - Past Medical History Pertinent Past Medical History: Yes Neurological History: Migraines ENT History: No Pertinent History Cardiac History: No Pertinent History Respiratory History: No Pertinent History Endocrine Medical History: No Pertinent History Musculoskeletal History: Other GI Medical History: No Pertinent History History: No Pertinent History Psycho-Social History: Anxiety Female Reproductive Disorders: No Pertinent History Other Medical History: Juvenile RA - Past Surgical History Past Surgical History: Yes Neuro Surgical History: No Pertinent History Cardiac: No Pertinent History Respiratory: No Pertinent History Gastrointestinal: Appendectomy, Cholecystectomy Genitourinary: No Pertinent History Musculoskeletal: No Pertinent History Female Surgical History: Section Other Surgical History: tubes in ears - Social History Smoking Status: Former smoker How long have you smoked: 8 YEARS Exposure to second hand smoke: No Drug Use: marijuana Patient Lives Alone: No Significant Family History: no pertinent family hx - Nursing Vital Signs Nursing Vital Signs: Initial Vital Signs Temperature 97.2 F 04/21/23 12:54 Pulse Rate 112 H 04/21/23 12:54 Respiratory Rate 20 04/21/23 12:54 Blood Pressure 88/60 04/21/23 12:54 O2 Sat by Pulse Oximetry 97 04/21/23 12:54 Pain Scale Pain Intensity 0 - [place] Coma Scale Best Eye Response ([place]): (4) open spontaneously Best Verbal Response ([place]): (5) oriented Best Motor Response ([place]): (6) obeys commands Chin Total: 15 - Physical Exam General Appearance: no apparent distress, alert, thin Eye Exam: bilateral eye: normal inspection, PERRL, EOMI Ears, Nose, Throat Exam: normal ENT inspection, moist mucous membranes Neck Exam: normal inspection, non-tender, supple, full range of motion Respiratory: normal breath sounds, lungs clear, airway intact, No chest tenderness, No respiratory distress Cardiovascular: tachycardia Gastrointestinal: soft, normal bowel sounds, No tenderness Pelvic Exam: not done Rectal Exam: not done Extremity Exam: normal inspection, normal range of motion, pelvis stable 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, 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, 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 Exam: normal hearing, normal speech, PERRL Coordination/Gait: normal finger to nose Skin Exam: normal color, warm, dry SpO2 Interpretation: normal O2 Delivery: Room Air - Course Nursing assessment & vital signs reviewed: Yes Ordered Tests: Active Orders 24 hr Category Date Time Status Director Of Collections STAT Care 04/21/23 12:56 Active EKG-ER Only STAT Care 04/21/23 12:56 Active Heart Tones-ED STAT Care 04/21/23 14:29 Active IV Insertion STAT Care 04/21/23 12:56 Active POCT Glucose Check STAT Care 04/21/23 14:29 Active Pulse Oximetry (ED) STAT Care 04/21/23 12:56 Active CBC W DIFF Stat Lab 04/21/23 12:56 Completed CMP Stat Lab 04/21/23 12:56 Completed Glucose Tolerance 3 Hr Routine Lab 04/21/23 09:09 Completed POCT GLUCOSE Stat Lab 04/21/23 12:50 Completed POCT GLUCOSE Stat Lab 04/21/23 14:13 Completed UA W/RFX UR CULTURE Stat Lab 04/21/23 14:20 Completed Medication Summary Discontinued Medications Generic Name Dose Route Start Last Admin Trade Name Costaq PRN Reason Stop Dose Admin Dextrose 50 ml 04/21/23 12:56 04/21/23 13:05 Dextrose 50%-Water 50 Ml Abboject IV 04/21/23 12:57 50 ml STAT ONE Administration Dextrose Confirm 04/21/23 13:04 Dextrose 50%-Water 50 Ml Abboject Administered 04/21/23 13:05 Dose 50 ml IV .STK-MED ONE Sodium Chloride 1,000 mls @ 999 mls/hr 04/21/23 12:56 04/21/23 14:06 Sodium Chloride 0.9% 1000 Ml IV 04/21/23 13:56 Infused .Q1H1M STA Infusion Sodium Chloride Confirm 04/21/23 13:04 Sodium Chloride 0.9% 1000 Ml Administered 04/21/23 13:05 Dose 1,000 mls @ ud .ROUTE .STK-MED ONE Lab/Rad Data: Laboratory Result Diagrams 04/21/23 12:56 04/21/23 12:56 Laboratory Results 04/21/23 04/21/23 04/21/23 Range/Units 14:20 14:13 12:56 WBC (4.0-10.5) x10^3/uL RBC (4.1-5.4) x10^6/uL Hgb (12.0-16.0) g/dL Hct (35-47) % MCV (78-100) fL MCH (26-32) pg MCHC (32-36) g/dL RDW (11.5-14.0) % Plt Count (150-450) x10^3/uL MPV (7.5-11.0) fL Gran % (36.0-66.0) % Immature Gran % (Auto) (0.00-0.4) % Nucleat RBC Rel Count (0.00-0.1) % Eos # (Auto) (0-0.5) x10^3/uL Immature Gran # (Auto) (0.00-0.03) x10^3u/L Absolute Lymphs (auto) (1.0-4.6) x10^3/uL Absolute Monos (auto) (0.0-1.3) x10^3/uL Absolute Nucleated RBC (0.00-0.01) x10^3u/L Lymphocytes % (24.0-44.0) % Monocytes % (0.0-12.0) % Eosinophils % (0.00-5.0) % Basophils % (0.0-0.4) % Absolute Granulocytes (1.4-6.9) x10^3/uL Basophils # (0-0.4) x10^3/uL Sodium 134 L (137-145) mmol/L Potassium 3.9 (3.5-5.1) mmol/L Chloride 107 (98-107) mmol/L Carbon Dioxide 18 L (22-30) mmol/L Anion Gap 12.9 (5-15) MEQ/L BUN 4 L (7-17) mg/dL Creatinine 0.33 L (0.52-1.04) mg/dL Estimated GFR > 60.0 ML/MIN Glucose 56 L (74-106) mg/dL POC Glucometer 115 H (74 to 106) mg/dL Glucose Tolerance Calcium 8.1 L (8.4-10.2) mg/dL Total Bilirubin 0.30 (0.2-1.3) mg/dL AST 26 (14-36) U/L ALT 21 (0-35) U/L Alkaline Phosphatase 77 (38-126) U/L Serum Total Protein 5.9 L (6.3-8.2) g/dL Albumin 3.1 L (3.5-5.0) g/dL Urine Color Yellow (Yellow) Urine Appearance Clear (Clear) Urine pH 7.5 (4.6-8.0) Ur Specific [place] <=1.005 (1.005-1.030) Urine Protein Negative (Negative) Urine Glucose (UA) 500 A (Negative) mg/dL Urine Ketones Negative (Negative) Urine Blood Negative (Negative) Urine Nitrite Negative (Negative) Urine Bilirubin Negative (Negative) Urine Urobilinogen 1.0 A (0.2) mg/dL Ur Leukocyte Esterase Trace A (Negative) U Hyaline Cast (Auto) NONE SEEN (0-2) /LPF Urine Microscopic RBC 0-2 (0-5) /HPF Urine Microscopic WBC 3-5 (0-5) /HPF Ur Epithelial Cells None Seen (None Seen) /HPF Urine Bacteria None Seen (None Seen) /HPF Urine Culture Reflexed NO (NO) 04/21/23 04/21/23 04/21/23 Range/Units 12:56 12:50 09:09 WBC 13.0 H (4.0-10.5) x10^3/uL RBC 3.14 L (4.1-5.4) x10^6/uL Hgb 9.4 L (12.0-16.0) g/dL Hct 28.9 L (35-47) % MCV 92.0 (78-100) fL MCH 29.9 (26-32) pg MCHC 32.5 (32-36) g/dL RDW 12.9 (11.5-14.0) % Plt Count 215 (150-450) x10^3/uL MPV 10.1 (7.5-11.0) fL Gran % 73.9 H (36.0-66.0) % Immature Gran % (Auto) 0.9 H (0.00-0.4) % Nucleat RBC Rel Count 0.0 (0.00-0.1) % Eos # (Auto) 0.12 (0-0.5) x10^3/uL Immature Gran # (Auto) 0.12 H (0.00-0.03) x10^3u/L Absolute Lymphs (auto) 2.13 (1.0-4.6) x10^3/uL Absolute Monos (auto) 0.98 (0.0-1.3) x10^3/uL Absolute Nucleated RBC 0.00 (0.00-0.01) x10^3u/L Lymphocytes % 16.4 L (24.0-44.0) % Monocytes % 7.6 (0.0-12.0) % Eosinophils % 0.9 (0.00-5.0) % Basophils % 0.3 (0.0-0.4) % Absolute Granulocytes 9.57 H (1.4-6.9) x10^3/uL Basophils # 0.04 (0-0.4) x10^3/uL Sodium (137-145) mmol/L Potassium (3.5-5.1) mmol/L Chloride (98-107) mmol/L Carbon Dioxide (22-30) mmol/L Anion Gap (5-15) MEQ/L BUN (7-17) mg/dL Creatinine (0.52-1.04) mg/dL Estimated GFR ML/MIN Glucose (74-106) mg/dL POC Glucometer 62 L (74 to 106) mg/dL Glucose Tolerance Calcium (8.4-10.2) mg/dL Total Bilirubin (0.2-1.3) mg/dL AST (14-36) U/L ALT (0-35) U/L Alkaline Phosphatase (38-126) U/L Serum Total Protein (6.3-8.2) g/dL Albumin (3.5-5.0) g/dL Urine Color (Yellow) Urine Appearance (Clear) Urine pH (4.6-8.0) Ur Specific [place] (1.005-1.030) Urine Protein (Negative) Urine Glucose (UA) (Negative) mg/dL Urine Ketones (Negative) Urine Blood (Negative) Urine Nitrite (Negative) Urine Bilirubin (Negative) Urine Urobilinogen (0.2) mg/dL Ur Leukocyte Esterase (Negative) U Hyaline Cast (Auto) (0-2) /LPF Urine Microscopic RBC (0-5) /HPF Urine Microscopic WBC (0-5) /HPF Ur Epithelial Cells (None Seen) /HPF Urine Bacteria (None Seen) /HPF Urine Culture Reflexed (NO) - Progress Progress: improved, re-examined Progress Note: 04/21/23 14:54 Patient states she is feeling much better after hydration and increased in blood sugar to 115. This patient's medical issue is 1 of moderate complexity. Level of complexity and the work-up performed is based on the review of the patient's past medical history, review of the patient's medication list, review of patient drug allergy list, history of present illness and physical findings on examination. This patient work-up includes placement of intravenous line, up obtaining CBC, CMP, urinalysis. We provided the patient with an amp of D50 and a meal. In addition we infused 1 L of normal saline solution. The work-up blood results were interpreted by me. Patient is anemic as expected during . Her symptoms have resolved. She is feeling well. Her weakness and near syncopal episode occurred secondary to low blood sugar. Counseled pt/family regarding: lab results, diagnosis, need for follow-up Medical Desision Making - Independent Historian Additional History obtained from: Mother - Diagnostic Testing Diagnostic test were ordered, analyzed, and reviewed by me: Yes - Risk of complications Minimal Risk: Minimal risk of morbidity - Departure Departure Disposition: Home Clinical Impression: Near syncope, Hypoglycemia, Weakness Condition: Stable Critical Care Time: No Referrals: MIGDALIA SALINAS MD [Primary Care Provider] - Follow up/PCP as directed Additional Instructions: Drink plenty of fluids. Eat your standard diet during . Follow-up with your coverage specialist rn tomorrow, 04/22/2023, for further evaluation and management
[2023-04-21] MEDS ORDERED: D50W 50 ml Abboject IV ONE ×2 (12:56→13:04)
[2023-04-21] MEDS ORDERED: Sodium Chloride 0.9% 1000 ML 1,000 ML IV STA (12:56)
[2023-04-21 12:59] VITALS: TEMP 97.2
[2023-04-21 13:04] LABS: Absolute Neutrophil Ct (ANC) 9.57 x10^3/uL (1.4-6.9); BASOPHIL % 0.3 % (0.0-0.4); Basophil (Absolute #) 0.04 x10^3/uL (0-0.4); Eosinophil % 0.9 % (0.00-5.0); Eosinophil (Absolute #) 0.12 x10^3/uL (0-0.5); Hematocrit 28.9 % (35-47); Hemoglobin 9.4 g/dL (12.0-16.0); IMMATURE GRAN # 0.12 x10^3u/L (0.00-0.03); IMMATURE GRAN % 0.9 % (0.00-0.4); Lymphocyte (Absolute #) 2.13 x10^3/uL (1.0-4.6); Lymphocytes % 16.4 % (24.0-44.0); Mean Corpuscular Hemoglobin 29.9 pg (26-32); Mean Corpuscular Hgb Concent. 32.5 g/dL (32-36); Mean Platelet Volume 10.1 fL (7.5-11.0); Monocyte (Absolute #) 0.98 x10^3/uL (0.0-1.3); Monocytes % 7.6 % (0.0-12.0); Neutrophil % 73.9 % (36.0-66.0); Platelet Count 215 x10^3/uL (150-450); Red Blood Count 3.14 x10^6/uL (4.1-5.4); Red Cell Distribution Width 12.9 % (11.5-14.0)
[2023-04-21] MEDS ORDERED: Sodium Chloride 0.9% 1000 ML 1,000 ML ONE (13:04)
[2023-04-21 13:18] LABS: ALBUMIN 3.1 g/dL (3.5-5.0); ALKALINE PHOSPHATASE 77 U/L (38-126); ANION GAP 12.9 MEQ/L (5-15); BLOOD UREA NITROGEN 4 mg/dL (7-17); CHLORIDE 107 mmol/L (98-107); Calcium 8.1 mg/dL (8.4-10.2); Carbon Dioxide 18 mmol/L (22-30); Creatinine 1 0.33 mg/dL (0.52-1.04); EST GLOMERULAR FILTRATION RATE > 60.0 ML/MIN; Glucose 56 mg/dL (74-106); Potassium 3.9 mmol/L (3.5-5.1); SGOT/AST 26 U/L (14-36); SGPT/ALT 21 U/L (0-35); SODIUM 134 mmol/L (137-145); Total Protein 5.9 g/dL (6.3-8.2)
[2023-04-21 14:31] VITALS: PULSE 84; RESP 16
[2023-04-21 14:34] LABS: Appearance Clear (Clear); Bacteria None Seen /HPF (None Seen); Bilirubin Negative (Negative); Blood Negative (Negative); Epithelial Cells None Seen /HPF (None Seen); Glucose, Urine 500 mg/dL (Negative); Hyaline Casts NONE SEEN /LPF (0-2); Ketones Negative (Negative); Leukocyte Esterase Trace (Negative); Nitrite Negative (Negative); Ph 7.5 (4.6-8.0); Protein,Urine Dip Negative (Negative); RBC 0-2 /HPF (0-5); Specific Gravity <=1.005 (1.005-1.030)
[2023-04-21 14:45] LABS: ADD URINE CULTURE? NO (NO)
[2023-04-21 15:05] VITALS: BP 92/67; O2SAT 98
== END 2023-04-21 15:16 | disposition home or self-care (01) ==
LOC: LAB 09:01 → ED 09:01 → EDSTATUS 12:42 → ED 15:16
DX: R55 Syncope and collapse (principal); O99.810 Abnormal glucose complicating pregnancy; R53.1 Weakness; Z79.899 Other long term (current) drug therapy; Z28.310 Unvaccinated for COVID-19; Z3A.29 29 weeks gestation of pregnancy
CPT/HCPCS: 36000; 36415; 80053; 81001; 82947; 82951; 85025; 93005; 93041; 94760; 96360; 96374; 99284

== ENCOUNTER 2023-05-13 15:16 | Observation (INO) | payer OTHER ==
--- NOTE | 2023-05-13 16:26 | XRAY ---
Indication: Spontaneous rupture of membrane. Ultrasound biophysical profile study performed. Comparison: None Single intrauterine with heart rate 146 BPM. Four-quadrant MATHEUS is 13.4 cm, largest pocket 5.1 cm. 2 points given for breathing, movements, tone, and amniotic fluid volume. Impression: Total biophysical profile score is 8 out of 8.
[2023-05-13 16:44] VITALS: BP 105/66; PULSE 108; RESP 14; TEMP 99.1; O2SAT 98
[2023-05-13 17:11] LABS: Appearance Clear (Clear); Bacteria Few /HPF (None Seen); Bilirubin Negative (Negative); Blood Negative (Negative); Epithelial Cells None Seen /HPF (None Seen); Glucose, Urine 250 mg/dL (Negative); Hyaline Casts NONE SEEN /LPF (0-2); Ketones Negative (Negative); Leukocyte Esterase Trace (Negative); Nitrite Negative (Negative); Protein,Urine Dip Negative (Negative); RBC 0-2 /HPF (0-5); Specific Gravity <=1.005 (1.005-1.030); Urobilinogen 0.2 mg/dL (0.2)
[2023-05-13 17:34] LABS: ADD URINE CULTURE? YES (NO)
== END 2023-05-13 17:15 | disposition home or self-care (01) ==
LOC: OB 15:16
PROVIDERS: ADMIT Obstetrics & Gynecology; ATTEND Obstetrics & Gynecology
DX: Z34.83 Encounter for supervision of other normal pregnancy, third trimester (principal); Z3A.32 32 weeks gestation of pregnancy
CPT/HCPCS: 76819; 81001; 84112; 87086; G0378; G0379

== ENCOUNTER 2023-07-02 05:06 | Inpatient (IN) | payer OTHER ==
[~2023-07-02 05:06] MED LIST changes: +Lactated Ringers 1,000 ML IV SCH; -PYRIDIUM 200 MG PO SCH
[2023-07-02 06:24] LABS: Hematocrit 29.6 % (35-47); Hemoglobin 9.2 g/dL (12.0-16.0); Mean Cell Volume 84.3 fL (78-100); Mean Corpuscular Hemoglobin 26.2 pg (26-32); Mean Corpuscular Hgb Concent. 31.1 g/dL (32-36); Mean Platelet Volume 10.3 fL (7.5-11.0); Platelet Count 216 x10^3/uL (150-450); Red Blood Count 3.51 x10^6/uL (4.1-5.4); White Blood Count 10.8 x10^3/uL (4.0-10.5)
[2023-07-02] MEDS ORDERED: CLINDAMYCIN-D5W 900 MG/50 ML*** 900 MG/50 ML BAG IV SCH (06:30)
[2023-07-02] MEDS ORDERED: Reglan 10 MG/2 ML IV SCH (06:30)
[2023-07-02] MEDS ORDERED: SOD CITRATE-CITRIC ACID SOLN PO SCH (06:30)
[2023-07-02] MEDS ORDERED: Pepcid 20 MG VIAL IV SCH (06:30)
[2023-07-02 06:47] LABS: INR 0.86 (0.8-3.0); PROTIME 9.5 SECONDS (9.4-12.5); PTT 24.8 SECONDS (25.1-36.5)
[2023-07-02] MEDS ORDERED: Lactated Ringers 1,000 ML IV ONE (07:00)
[2023-07-02 07:07] LABS: ABO TYPING O; Antibody Screen NEGATIVE (NEGATIVE); RH TYPING POSITIVE
[2023-07-02 07:39] LABS: Appearance Clear (Clear); Bilirubin Negative (Negative); Blood Negative (Negative); Glucose, Urine Negative (Negative); Ketones Negative (Negative); Leukocyte Esterase Negative (Negative); Nitrite Negative (Negative); Protein,Urine Dip Negative (Negative); Urobilinogen 0.2 mg/dL (0.2)
[2023-07-02 07:42] LABS: Bacteria Rare /HPF (None Seen); Epithelial Cells None Seen /HPF (None Seen); Hyaline Casts NONE SEEN /LPF (0-2); RBC 0-2 /HPF (0-5); WBC 0-2 /HPF (0-5)
[2023-07-02 07:43] LABS: ADD URINE CULTURE? NO (NO)
[2023-07-02] MEDS ORDERED: Pitocin 10 UNITS/ML ONE ×2 (07:47→08:46)
[2023-07-02] MEDS ORDERED: Astramorph-Pf 5 MG/10 ML ONE (07:47)
[2023-07-02] MEDS ORDERED: Lactated Ringers 2,000 ML IV ONE (08:34)
[2023-07-02] MEDS ORDERED: Epinephrine Preservative Free 1 MG/ML ONE (08:49)
[2023-07-02] MEDS ORDERED: Naropin 0.5% 30 ML VIAL ONE (08:49)
[2023-07-02] MEDS ORDERED: TORAdol 30 mg Injection IV PRN (10:36)
[2023-07-02] MEDS: Dextrose 5%-Lr IV Solution 1000 ML 1,000 ML IV SCH ×2 (11:00→18:24)
[2023-07-02] MEDS ORDERED: Narcan 0.4 MG/ML IV PRN (11:02)
[2023-07-02] MEDS ORDERED: BENADRYL 50 MG/ML IV PRN (11:02)
[2023-07-02] MEDS ORDERED: DEMEROL 50 MG IV PRN (11:02)
[2023-07-02] MEDS ORDERED: HOLD NARCOTIC ANALGESICS AND SEDATIVES X24 HR MC PRN (11:02)
[2023-07-02] MEDS ORDERED: MORPHINE SULFATE 2 MG INJ IV PRN (11:02)
[2023-07-02] MEDS ORDERED: Zofran 4 MG/2 ML VIAL IV PRN (11:02)
[2023-07-02] MEDS ORDERED: CLARITIN 10 MG PO PRN (11:02)
[2023-07-02] MEDS ORDERED: Nubain 10 MG/ML IV PRN (11:02)
[2023-07-02 13:44] LABS: Appearance Clear (Clear); Bacteria None Seen /HPF (None Seen); Bilirubin Negative (Negative); Blood NHT (Negative); Epithelial Cells Rare /HPF (None Seen); Glucose, Urine Negative (Negative); Ketones Trace (Negative); Leukocyte Esterase Negative (Negative); Nitrite Negative (Negative); Protein,Urine Dip Negative (Negative); Urobilinogen 0.2 mg/dL (0.2)
--- NOTE | 2023-07-02 14:08 | OP ---
SURGERY DATE/TIME: 07/02/2023 0809 PREOPERATIVE DIAGNOSES: 1) Term intrauterine . 2) History of prior section. 3) Desires permanent sterilization. POSTOPERATIVE DIAGNOSES: 1) Term intrauterine . 2) History of prior section. 3) Desires permanent sterilization. PROCEDURE: Repeat low transverse section with bilateral tubal ligation. SURGEON: Bishnu Vyas M.D. QUANTITATIVE BLOOD LOSS: 341 ml. URINE OUTPUT: 150 ml of clear straw-colored urine. ANESTHESIA: Spinal by Feliciano Mcnamara CRNA. SPECIMENS: Bilateral fallopian tube segments. DESCRIPTION OF PROCEDURE: After informed written consent was obtained, the patient was taken to the operating room. She underwent spinal anesthesia. A Walter catheter inserted. She was prepped and draped in the usual sterile fashion. After adequate level of anesthesia was assessed, a low transverse skin incision was made by knife through the previous scar down through the subcutaneous fat to the level of the fascia. The fascia was nicked on both sides of the midline and extended horizontal using curved [place]on scissors. At that point the peritoneal cavity was already exposed and opened. The anterior surface of the uterus was seen. The superior edge of the fascia was grasped with Eric clamps and the underlying rectus muscles were dissected free. The same was repeated inferiorly. Bladder flap was created and reflected over lower uterine segment. A horizontal uterine incision was made and carried down to the level of the amniotic membranes which were carefully artificially ruptured. A viable male infant was delivered from the vertex presentation with a nuchal cord x2. The cord was clamped and cut and the baby was handed off to the awaiting nursery team. The placenta was manually extracted and the uterus was exteriorized. The uterine cavity was sponge curetted clean with a lap sponge. The uterine incision was closed with #1 chromic in a running locked fashion with excellent closure and hemostasis at that level. The left fallopian tube was identified grasped with a [place]. Electrocautery was used to make a window in the mesoappendix and the proximal and distal tube was ligated with 0 chromic tie and the interceding tube segment was dissected free with Metzenbaum scissors. The free edge of the fallopian tube was then cauterized with electrocautery and the specimen was collected for pathology. The same was repeated on the right side with no complications. The posterior cul-de-sac was then wiped free of blood and clot with a moist lap sponge and the uterus was returned to the peritoneal cavity. The uterine incision was inspected and noted to be hemostatic with good closure after returning to the peritoneal cavity. Lateral gutters were wiped free of blood and clot with moist lap sponge. Again, everything was hemostatic. Urine was verified to be clear in the Walter at that time. Next, the fascia was closed with 0 Vicryl in running fashion with good closure and good hemostasis at that level as well. Subcutaneous fat was irrigated with warm, sterile saline. There were interrupted sutures placed in the subcutaneous fat to close the space with 2-0 Vicryl. Finally, the skin layer was closed with 4-0 undyed Vicryl in a running subcuticular fashion. Steri-Strips and occlusive dressing were placed over the incision. The patient was transferred to the recovery room in good condition.
[2023-07-02] MEDS: PERCOCET TABLET 5/325MG PO PRN (19:43)
[2023-07-02] MEDS: Docusate Sodium 100 MG PO SCH (21:35)
[2023-07-03] MEDS: PERCOCET TABLET 5/325MG PO PRN ×2 (02:07→07:50)
[2023-07-03] MEDS ORDERED: Dulcolax 10 MG SUPP PR PRN (04:40)
[2023-07-03] MEDS ORDERED: TYLENOL EXTRA STRENGTH 500 MG PO PRN (04:40)
[2023-07-03] MEDS ORDERED: CORTISONE 1% CREAM TP PRN (04:40)
[2023-07-03] MEDS ORDERED: Anucort-HC SUPPOSITORY PR PRN (04:40)
[2023-07-03 05:08] LABS: Absolute Neutrophil Ct (ANC) 7.57 x10^3/uL (1.4-6.9); BASOPHIL % 0.3 % (0.0-0.4); Basophil (Absolute #) 0.03 x10^3/uL (0-0.4); Hematocrit 24.8 % (35-47); Hemoglobin 7.7 g/dL (12.0-16.0); IMMATURE GRAN # 0.04 x10^3u/L (0.00-0.03); IMMATURE GRAN % 0.4 % (0.00-0.4); Lymphocyte (Absolute #) 1.44 x10^3/uL (1.0-4.6); Lymphocytes % 14.6 % (24.0-44.0); Mean Cell Volume 85.8 fL (78-100); Mean Corpuscular Hemoglobin 26.6 pg (26-32); Mean Platelet Volume 9.8 fL (7.5-11.0); Monocyte (Absolute #) 0.66 x10^3/uL (0.0-1.3); Monocytes % 6.7 % (0.0-12.0); Platelet Count 188 x10^3/uL (150-450); Red Blood Count 2.89 x10^6/uL (4.1-5.4); Red Cell Distribution Width 14.1 % (11.5-14.0); White Blood Count 9.8 x10^3/uL (4.0-10.5)
[2023-07-03] MEDS: Mylicon 80MG PO PRN ×2 (07:50→14:45)
[2023-07-03] MEDS ORDERED: NORCO 5/325 MG PO PRN (09:00)
[2023-07-03] MEDS ORDERED: Adacel Vial IM ONE (10:00)
[2023-07-03] MEDS ORDERED: FERREX 150 PO SCH (10:00)
[2023-07-03] MEDS: MOTRIN 400 MG PO PRN ×2 (10:51→19:32)
[2023-07-03] MEDS: Docusate Sodium 100 MG PO SCH ×2 (10:52→20:30)
[2023-07-03] MEDS ORDERED: LANSINOH 40 GM TOP PRN (14:47)
[2023-07-03 20:21] VITALS: RESP 18
[2023-07-04] MEDS: MOTRIN 400 MG PO PRN (04:15)
--- NOTE | 2023-07-04 08:46 | PCM.DS ---
Discharge Summary Date of Admission: 07/02/23 05:06 Admitting Physician: MIGDALIA SALINAS Consults: Consults on Case 07/02/23 05:00 Notify Anesthesia Provider ROUTINE 07/02/23 11:02 Notify Anesthesia Provider PRN Primary Care Provider: MIGDALIA SALINAS Allergies Allergies Penicillins Allergy (Mild, Verified 03/26/23 23:17) FAMILY IS ALLERGIC questionable allergy parents and brother allergic, has never tried it Hospital Summary - Hospital Course Hospital Course: patient had uncomplicted repeat with tubal ligation, no complications. has done great with routine postop care, hemoglobin was 9 prior to surgery, 7.x after surgery but no symptoms. doing great, pain well controlled with tylenol/motrin and mild lochia, tolerating po and ambulating well. - Vitals & Intake/Output Vital Signs: Vital Signs Temperature 97.4 F 07/04/23 02:00 Pulse Rate 88 07/04/23 02:00 Respiratory Rate 18 07/04/23 02:00 Blood Pressure 115/67 07/04/23 02:00 O2 Sat by Pulse Oximetry 99 07/04/23 02:00 Intake & Output: Intake & Output 07/01/23 07/02/23 07/03/23 07/04/23 11:59 11:59 11:59 11:59 Intake Total 1831 1600 Output Total 4625 Balance -2794 1600 Weight 82.1 kg - Lab Result Diagrams: 07/03/23 05:01 Micro Results-Entire Visit: Microbiology 07/02/23 13:20 Urine Culture - Final Catherized NO GROWTH 07/02/23 05:49 Urine Culture - Final Urine, Void <10K NORMAL SKIN JORDON PROBABLE SKIN CONTAMINANT - Procedures and Test Procedures and Tests throughout Hospitalization: Therapy Orders & Screens 07/02/23 09:24 Standby ROUTINE Comment: Diagnosis: Repeat Section Discharge Exam General Appearance: no apparent distress Neurologic Exam: alert, 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 Respiratory Exam: normal breath sounds, lungs clear, No respiratory distress Cardiovascular Exam: regular rate/rhythm, normal heart sounds Gastrointestinal/Abdomen Exam: soft, other (incision clean,dry, intact with no drainage or redness) Skin Exam: normal color, warm, dry Final Diagnosis/Problem List - Final Discharge Diagnosis/Problem (1) delivery delivered Current Visit: Yes Status: Acute Code(s): O82 - ENCOUNTER FOR DELIVERY WITHOUT INDICATION (2) Tubal ligation status Current Visit: Yes Status: Acute Code(s): Z98.51 - TUBAL LIGATION STATUS - Discharge Disposition: Home, Self-Care Condition: Stable Prescriptions: No Action No Reportable Medications [No Reported Medications] Additional Instructions: continue and iron tab daily, otc colace daily. Follow up with: MIGDALIA SALINAS MD [Primary Care Provider] - 1 Week
[2023-07-04 09:30] VITALS: BP 114/64; PULSE 90; TEMP 98.9; O2SAT 98
== END 2023-07-04 11:10 | disposition home or self-care (01) | DRG 785 ==
LOC: MED SURG 05:06
PROVIDERS: ADMIT Family Medicine; ATTEND Family Medicine
PROC: 10D00Z1 Extraction of Products of Conception, Low, Open Approach (ICD-10-PCS; principal; 2023-07-02)
PROC: 0UT70ZZ Resection of Bilateral Fallopian Tubes, Open Approach (ICD-10-PCS; 2023-07-02)
DX: O34.211 Maternal care for low transverse scar from previous cesarean delivery (principal); O69.81X0 Labor and delivery complicated by cord around neck, without compression, not applicable or unspecified; Z30.2 Encounter for sterilization; Z3A.39 39 weeks gestation of pregnancy; Z37.0 Single live birth; Z20.828 Contact with and (suspected) exposure to other viral communicable diseases
CPT/HCPCS: 36415; 62322; 64488; 76937; 76942; 81001; 81003; 85025; 85027; 85610; 85730; 86850; 86900; 86901; 87086; 90715; 94799; J0171; J1885; J2274; J2405; J2590; J2795; A9270-GY

== ENCOUNTER 2025-05-30 16:29 | Emergency (ER) | payer OTHER ==
[2025-05-30] MEDS ORDERED: Zofran 4 MG/2 ML VIAL ONE (16:58)
[2025-05-30] MEDS ORDERED: TORAdol 30 mg Injection ONE (16:58)
[2025-05-30 17:05] LABS: BASOPHIL % 0.6 % (0.1-1.2); Basophil (Absolute #) 0.06 x10^3/uL (0.01-0.08); Eosinophil (Absolute #) 0.17 x10^3/uL (0.04-0.36); Hematocrit 37.0 % (34.1-44.9); Hemoglobin 11.4 g/dL (11.2-15.7); IMMATURE GRAN # 0.02 x10^3u/L (0.001-0.031); IMMATURE GRAN % 0.2 % (0.001-0.429); Lymphocyte (Absolute #) 2.35 x10^3/uL (1.18-3.74); Mean Corpuscular Hemoglobin 25.7 pg (25.6-32.2); Mean Corpuscular Hgb Concent. 30.8 g/dL (32.2-35.5); Monocyte (Absolute #) 0.71 x10^3/uL (0.24-0.86); NUCLEATED RBC # 0.00 x10^3u/L (0.00-0.012); NUCLEATED RBC % 0.0 % (0.00-0.2); Platelet Count 232 x10^3/uL (182-369); Red Blood Count 4.44 x10^6/uL (3.93-5.22); White Blood Count 10.4 x10^3/uL (3.98-10.04)
[2025-05-30 17:07] VITALS: TEMP 98.4
[2025-05-30] MEDS: TORAdol 30 mg Injection IV ONE (17:16)
[2025-05-30] MEDS: Zofran 4 MG/2 ML VIAL IV ONE (17:17)
[2025-05-30 17:44] LABS: Calcium 8.8 mg/dL (8.4-10.2); Carbon Dioxide 21.0 mmol/L (22-30); Creatinine 1 0.53 mg/dL (0.52-1.04); EST GLOMERULAR FILTRATION RATE 129.1 ML/MIN; Glucose 92.0 mg/dL (74-106); Potassium 3.8 mmol/L (3.5-5.1); SGOT/AST 48.0 U/L (14-36); SGPT/ALT 55.0 U/L (0-35); Total Protein 7.7 g/dL (6.3-8.2)
[2025-05-30 17:47] LABS: Glucose, Urine Negative (Negative); Protein,Urine Dip Negative (Negative); RBC 0-2 /HPF (0-5); WBC >100 /HPF (0-5)
--- NOTE | 2025-05-30 18:43 | ERPHSYRPT ---
- History of Present Illness Historian: patient Exam Limitations: no limitations Patient Subjective Stated Complaint: Pt. states, "I have been having burning when I pee, then yesterday, I started having pain in my rt. lower back and side. It feels like I am peeing glass." Triage Nursing Assessment: Pt. ambulates to room without difficulty, A&Ox4, Skin P/W/D, REsp. even unlabored. Abdomen soft, slightly tender on rt. side. Pt. went to the bathroom on her own able to void, bright yellow urine. Timing/Duration: yesterday Activities at Onset: none Quality: burning Abdominal Pain Onset Location: flank Pain Radiation: flank Severity of Pain-Max: moderate Severity of Pain-Current: moderate Associated Symptoms: nausea Hx Tetanus, Diphtheria Vaccination/Date Given: Yes Hx Influenza Vaccination/Date Given: No Hx Pneumococcal Vaccination/Date Given: No <CARL BHAGAT - Last Filed: 05/30/25 18:56> <FARRAH GOODE - Last Filed: 05/31/25 01:22> - History of Present Illness Time Seen by Provider: 05/30/25 16:30 Physician History: Patient comes to emergency room due to significant dysuria and left flank pain going on since yesterday getting worse no nausea no vomiting right now but earlier she was nauseous. Patient denies any fever chills chest pain shortness of breath. (CARL BHAGAT) Allergies/Adverse Reactions: Penicillins Allergy (Mild, Verified 03/26/23 23:17) FAMILY IS ALLERGIC questionable allergy parents and brother allergic, has never tried it Travel Risk - International Travel Have you traveled outside of the country in past 3 weeks: No - Emerging Infectious Disease Are you exhibiting symptoms associated with any current EIDs: No <CARL BHAGAT - Last Filed: 05/30/25 18:56> - Review of Systems Constitutional: No Fever, No Chills Eyes: No Symptoms Respiratory: No Cough, No Dyspnea Cardiac: No Chest Pain, No Edema, No Syncope Abdominal/Gastrointestinal: No Abdominal Pain, No Nausea, No Vomiting, No Diarrhea Genitourinary Symptoms: Dysuria, Frequency, Urgency Neurological: No Dizziness, No Focal Weakness, No Sensory Changes Psychological: No Symptoms <CARL BHAGAT - Last Filed: 05/30/25 18:56> - Past Medical History Pertinent Past Medical History: Yes Neurological History: Migraines ENT History: No Pertinent History Cardiac History: No Pertinent History Respiratory History: No Pertinent History Endocrine Medical History: No Pertinent History Musculoskeletal History: Other GI Medical History: No Pertinent History History: No Pertinent History Psycho-Social History: Anxiety Female Reproductive Disorders: No Pertinent History Other Medical History: Juvenile RA - Past Surgical History Past Surgical History: Yes Neuro Surgical History: No Pertinent History Cardiac: No Pertinent History Respiratory: No Pertinent History Gastrointestinal: Appendectomy, Cholecystectomy Genitourinary: No Pertinent History Musculoskeletal: No Pertinent History Female Surgical History: Section Other Surgical History: tubes in ears. Hard time waking up from general anesthesia Significant Family History: no pertinent family hx - Female History Hx Last Menstrual Period: 05/08/25 Hx Now: No - Social History Smoking Status: Former smoker How long have you smoked: 10 years Exposure to second hand smoke: No Drug Use: none - Social Determinants of Health Will the patient participate in the screening: Yes Do you worry about a steady place to live?: No Do you have any problems with any of the following?: No known problems In the past 12 months,have you had to go without utilities?: No Transportation Issues: No Has anyone in your support network made you feel unsafe?: No Have you or anyone in your house had to go w/o enough food: No <CARL BHAGAT - Last Filed: 05/30/25 18:56> - Physical Exam General Appearance: mild distress Respiratory Exam: normal breath sounds, lungs clear, No respiratory distress Cardiovascular Exam: regular rate/rhythm, normal heart sounds Gastrointestinal/Abdomen Exam: soft, No tenderness, No mass Back Exam: CVA tenderness Extremity Exam: normal inspection, normal range of motion, pelvis stable Neurologic Exam: alert, 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, cooperative, normal mood/affect, nml cerebellar function, sensation nml, No motor deficits SpO2: 100 <CARL BHAGAT - Last Filed: 05/30/25 18:56> - Nursing Vital Signs Nursing Vital Signs: Initial Vital Signs Temperature 98.4 F 05/30/25 16:29 Pulse Rate 91 H 05/30/25 16:29 Respiratory Rate 18 05/30/25 16:29 Blood Pressure 132/78 05/30/25 16:29 O2 Sat by Pulse Oximetry 100 05/30/25 16:29 Pain Scale Pain Intensity 2 Ordered Tests: Active Orders 24 hr Category Date Time Status ABDOMEN AND PELVIS W/0 CONTRAS [CT] Stat Exams 05/30/25 16:49 Taken CBC W DIFF Stat Lab 05/30/25 17:00 Completed CMP Stat Lab 05/30/25 17:00 Completed CULTURE,URINE Stat Lab 05/30/25 16:55 Received UA W/RFX UR CULTURE Stat Lab 05/30/25 16:55 Completed Medication Summary Discontinued Medications Generic Name Dose Route Start Last Admin Trade Name Jody PRN Reason Stop Dose Admin Sodium Chloride 1,000 mls @ 999 mls/hr 05/30/25 16:48 05/30/25 18:15 Sodium Chloride 0.9% 1000 Ml IV 05/30/25 17:48 Infused .Q1H1M STA Infusion Sodium Chloride Confirm 05/30/25 16:58 Sodium Chloride 0.9% 1000 Ml Administered 05/30/25 16:59 Dose 1,000 mls @ ud .ROUTE .STK-MED ONE Ceftriaxone Sodium 1 gm in 100 mls @ 200 mls/hr 05/30/25 19:46 05/30/25 19:49 Rocephin 1 Gm / 100 Ml Nacl IV 05/30/25 20:15 200 ml/hr STAT ONE 200 mls/hr Administration Ceftriaxone Sodium Confirm 05/30/25 19:48 Rocephin 1 Gm / 100 Ml Nacl Administered 05/30/25 19:49 Dose 1 gm in 100 mls @ ud IV .STK-MED ONE Ketorolac Tromethamine 30 mg 05/30/25 16:48 05/30/25 17:16 Ketorolac Tromethamine 30 Mg/Ml Inj IV 05/30/25 16:49 30 mg STAT ONE Administration Ketorolac Tromethamine Confirm 05/30/25 16:58 Ketorolac Tromethamine 30 Mg/Ml Inj Administered 05/30/25 16:59 Dose 30 mg .ROUTE .STK-MED ONE Ondansetron HCl 4 mg 05/30/25 16:48 05/30/25 17:17 Ondansetron Hcl 4 Mg/2 Ml Vial IV 05/30/25 16:49 4 mg STAT ONE Administration Ondansetron HCl Confirm 05/30/25 16:58 Ondansetron Hcl 4 Mg/2 Ml Vial Administered 05/30/25 16:59 Dose 4 mg .ROUTE .STK-MED ONE Lab/Rad Data: Laboratory Result Diagrams 05/30/25 17:00 05/30/25 17:00 Laboratory Results 05/30/25 05/30/25 05/30/25 Range/Units 17:00 17:00 16:55 WBC 10.4 H (3.98-10.04) x10^3/uL RBC 4.44 (3.93-5.22) x10^6/uL Hgb 11.4 (11.2-15.7) g/dL Hct 37.0 (34.1-44.9) % MCV 83.3 (79.4-94.8) fL MCH 25.7 (25.6-32.2) pg MCHC 30.8 L (32.2-35.5) g/dL RDW 14.2 (11.7-14.4) % Plt Count 232 (182-369) x10^3/uL MPV 10.4 (9.4-12.3) fL Gran % 68.2 (34.0-71.1) % Immature Gran % (Auto) 0.2 (0.001-0.429) % Nucleat RBC Rel Count 0.0 (0.00-0.2) % Eos # (Auto) 0.17 (0.04-0.36) x10^3/uL Immature Gran # (Auto) 0.02 (0.001-0.031) x10^3u/L Absolute Lymphs (auto) 2.35 (1.18-3.74) x10^3/uL Absolute Monos (auto) 0.71 (0.24-0.86) x10^3/uL Absolute Nucleated RBC 0.00 (0.00-0.012) x10^3u/L Lymphocytes % 22.6 (19.3-51.7) % Monocytes % 6.8 (4.7-12.5) % Eosinophils % 1.6 (0.7-5.8) % Basophils % 0.6 (0.1-1.2) % Absolute Granulocytes 7.10 H (1.56-6.13) x10^3/uL Basophils # 0.06 (0.01-0.08) x10^3/uL Sodium 136 (135-145) mmol/L Potassium 3.8 (3.5-5.1) mmol/L Chloride 106 (98-107) mmol/L Carbon Dioxide 21 L (22-30) mmol/L Anion Gap 13.4 (5-15) MEQ/L BUN 6 L (7-17) mg/dL Creatinine 0.53 (0.52-1.04) mg/dL Estimated GFR 129.1 ML/MIN Glucose 92 (74-106) mg/dL Calcium 8.8 (8.4-10.2) mg/dL Total Bilirubin 0.50 (0.2-1.3) mg/dL AST 48 H (14-36) U/L ALT 55 H (0-35) U/L Alkaline Phosphatase 71 (38-126) U/L Serum Total Protein 7.7 (6.3-8.2) g/dL Albumin 4.4 (3.5-5.0) g/dL Urine Color Dark Yellow A (Yellow) Urine Appearance Clear (Clear) Urine pH 6.5 (4.6-8.0) Ur Specific [place] <=1.005 (1.005-1.030) Urine Protein Negative (Negative) Urine Glucose (UA) Negative (Negative) mg/dL Urine Ketones Negative (Negative) Urine Blood Small A (Negative) Urine Nitrite Positive A (Negative) Urine Bilirubin Negative (Negative) Urine Urobilinogen 1.0 A (0.2) mg/dL Ur Leukocyte Esterase Moderate A (Negative) U Hyaline Cast (Auto) NONE SEEN (0-2) /LPF Urine Microscopic RBC 0-2 (0-5) /HPF Urine Microscopic WBC >100 A (0-5) /HPF Ur Epithelial Cells None Seen (None Seen) /HPF Urine Bacteria Few A (None Seen) /HPF Urine Culture Reflexed YES (NO) - Progress Progress: improved <CARL BHAGAT - Last Filed: 05/30/25 18:56> - Progress Progress Note: 05/30/25 18:42 Patient comes the emergency room due to left flank pain along with burning with urination and severe pain with urination going on for over 24 hours along with nausea. Patient denies any fever chills here in the emergency room patient is getting blood work done and also a UA and a CT to rule out kidney stone patient was given Toradol fluids and is feeling a lot better (CARL BHAGAT) <CARL BHAGAT - Last Filed: 05/30/25 18:56> - Departure Departure Disposition: Home Critical Care Time: No <FARRAH GOODE - Last Filed: 05/31/25 01:22> - Departure Clinical Impression: Dysuria Flank pain Qualifiers: Laterality: left Qualified Code(s): R10.A2 - Flank pain, left side Condition: Stable Referrals: MIGDALIA SALINAS MD [Primary Care Provider, [facility]] - Follow up other Referral Note: 1-2 weeks Instructions: Urinary tract infection in adults - ED discharge instructions Additional Instructions: follow up to PCP in 1-2 weeks to have urine rechecked Prescriptions: Levofloxacin [Levaquin 500 MG Tablet] 500 mg PO DAILY #7 tablet
[2025-05-30 19:03] VITALS: O2SAT 98
[2025-05-30] MEDS ORDERED: ROCEPHIN 1 GM / 100 ML NaCl 1 GM/100 ML IVPB IV ONE (19:48)
[2025-05-30] MEDS: ROCEPHIN 1 GM / 100 ML NaCl 1 GM/100 ML IVPB IV ONE (19:49)
--- NOTE | 2025-05-30 19:51 | ERPHSYRPT ---
- History of Present Illness Time Seen by Provider: 05/30/25 16:30 Patient Subjective Stated Complaint: Pt. states, "I have been having burning when I pee, then yesterday, I started having pain in my rt. lower back and side. It feels like I am peeing glass." Triage Nursing Assessment: Pt. ambulates to room without difficulty, A&Ox4, Skin P/W/D, REsp. even unlabored. Abdomen soft, slightly tender on rt. side. Pt. went to the bathroom on her own able to void, bright yellow urine. Allergies/Adverse Reactions: Penicillins Allergy (Mild, Verified 03/26/23 23:17) FAMILY IS ALLERGIC questionable allergy parents and brother allergic, has never tried it Hx Tetanus, Diphtheria Vaccination/Date Given: Yes Hx Influenza Vaccination/Date Given: No Hx Pneumococcal Vaccination/Date Given: No Travel Risk - International Travel Have you traveled outside of the country in past 3 weeks: No - Emerging Infectious Disease Are you exhibiting symptoms associated with any current EIDs: No - Past Medical History Pertinent Past Medical History: Yes Neurological History: Migraines ENT History: No Pertinent History Cardiac History: No Pertinent History Respiratory History: No Pertinent History Endocrine Medical History: No Pertinent History Musculoskeletal History: Other GI Medical History: No Pertinent History History: No Pertinent History Psycho-Social History: Anxiety Female Reproductive Disorders: No Pertinent History Other Medical History: Juvenile RA - Past Surgical History Past Surgical History: Yes Neuro Surgical History: No Pertinent History Cardiac: No Pertinent History Respiratory: No Pertinent History Gastrointestinal: Appendectomy, Cholecystectomy Genitourinary: No Pertinent History Musculoskeletal: No Pertinent History Female Surgical History: Section Other Surgical History: tubes in ears. Hard time waking up from general anesthesia Significant Family History: no pertinent family hx - Female History Hx Last Menstrual Period: 05/08/25 Hx Now: No - Social History Smoking Status: Former smoker How long have you smoked: 10 years Exposure to second hand smoke: No Drug Use: none - Social Determinants of Health Will the patient participate in the screening: Yes Do you worry about a steady place to live?: No Do you have any problems with any of the following?: No known problems In the past 12 months,have you had to go without utilities?: No Transportation Issues: No Has anyone in your support network made you feel unsafe?: No Have you or anyone in your house had to go w/o enough food: No - Nursing Vital Signs Nursing Vital Signs: Initial Vital Signs Temperature 98.4 F 05/30/25 16:29 Pulse Rate 91 H 05/30/25 16:29 Respiratory Rate 18 05/30/25 16:29 Blood Pressure 132/78 05/30/25 16:29 O2 Sat by Pulse Oximetry 100 05/30/25 16:29 Pain Scale Pain Intensity 6 - Physical Exam SpO2 Interpretation: normal SpO2: 98 - CT Exams Abdomen/Pelvis CT Interpretation: Other (no acute process as interpreted by me) Ordered Tests: Active Orders 24 hr Category Date Time Status ABDOMEN AND PELVIS W/0 CONTRAS [CT] Stat Exams 05/30/25 16:49 Taken CBC W DIFF Stat Lab 05/30/25 17:00 Completed CMP Stat Lab 05/30/25 17:00 Completed CULTURE,URINE Stat Lab 05/30/25 16:55 Received UA W/RFX UR CULTURE Stat Lab 05/30/25 16:55 Completed Medication Summary Generic Name Dose Route Start Last Admin Trade Name Jody PRN Reason Stop Dose Admin Ceftriaxone Sodium 1 gm in 100 mls @ 200 mls/hr 05/30/25 19:46 Rocephin 1 Gm / 100 Ml Nacl IV 05/30/25 20:15 STAT ONE Discontinued Medications Generic Name Dose Route Start Last Admin Trade Name Jody PRN Reason Stop Dose Admin Sodium Chloride 1,000 mls @ 999 mls/hr 05/30/25 16:48 05/30/25 18:15 Sodium Chloride 0.9% 1000 Ml IV 05/30/25 17:48 Infused .Q1H1M STA Infusion Sodium Chloride Confirm 05/30/25 16:58 Sodium Chloride 0.9% 1000 Ml Administered 05/30/25 16:59 Dose 1,000 mls @ ud .ROUTE .STK-MED ONE Ketorolac Tromethamine 30 mg 05/30/25 16:48 05/30/25 17:16 Ketorolac Tromethamine 30 Mg/Ml Inj IV 05/30/25 16:49 30 mg STAT ONE Administration Ketorolac Tromethamine Confirm 05/30/25 16:58 Ketorolac Tromethamine 30 Mg/Ml Inj Administered 05/30/25 16:59 Dose 30 mg .ROUTE .STK-MED ONE Ondansetron HCl 4 mg 05/30/25 16:48 05/30/25 17:17 Ondansetron Hcl 4 Mg/2 Ml Vial IV 05/30/25 16:49 4 mg STAT ONE Administration Ondansetron HCl Confirm 05/30/25 16:58 Ondansetron Hcl 4 Mg/2 Ml Vial Administered 05/30/25 16:59 Dose 4 mg .ROUTE .STK-MED ONE Lab/Rad Data: Laboratory Result Diagrams 05/30/25 17:00 05/30/25 17:00 Laboratory Results 05/30/25 05/30/25 05/30/25 Range/Units 17:00 17:00 16:55 WBC 10.4 H (3.98-10.04) x10^3/uL RBC 4.44 (3.93-5.22) x10^6/uL Hgb 11.4 (11.2-15.7) g/dL Hct 37.0 (34.1-44.9) % MCV 83.3 (79.4-94.8) fL MCH 25.7 (25.6-32.2) pg MCHC 30.8 L (32.2-35.5) g/dL RDW 14.2 (11.7-14.4) % Plt Count 232 (182-369) x10^3/uL MPV 10.4 (9.4-12.3) fL Gran % 68.2 (34.0-71.1) % Immature Gran % (Auto) 0.2 (0.001-0.429) % Nucleat RBC Rel Count 0.0 (0.00-0.2) % Eos # (Auto) 0.17 (0.04-0.36) x10^3/uL Immature Gran # (Auto) 0.02 (0.001-0.031) x10^3u/L Absolute Lymphs (auto) 2.35 (1.18-3.74) x10^3/uL Absolute Monos (auto) 0.71 (0.24-0.86) x10^3/uL Absolute Nucleated RBC 0.00 (0.00-0.012) x10^3u/L Lymphocytes % 22.6 (19.3-51.7) % Monocytes % 6.8 (4.7-12.5) % Eosinophils % 1.6 (0.7-5.8) % Basophils % 0.6 (0.1-1.2) % Absolute Granulocytes 7.10 H (1.56-6.13) x10^3/uL Basophils # 0.06 (0.01-0.08) x10^3/uL Sodium 136 (135-145) mmol/L Potassium 3.8 (3.5-5.1) mmol/L Chloride 106 (98-107) mmol/L Carbon Dioxide 21 L (22-30) mmol/L Anion Gap 13.4 (5-15) MEQ/L BUN 6 L (7-17) mg/dL Creatinine 0.53 (0.52-1.04) mg/dL Estimated GFR 129.1 ML/MIN Glucose 92 (74-106) mg/dL Calcium 8.8 (8.4-10.2) mg/dL Total Bilirubin 0.50 (0.2-1.3) mg/dL AST 48 H (14-36) U/L ALT 55 H (0-35) U/L Alkaline Phosphatase 71 (38-126) U/L Serum Total Protein 7.7 (6.3-8.2) g/dL Albumin 4.4 (3.5-5.0) g/dL Urine Color Dark Yellow A (Yellow) Urine Appearance Clear (Clear) Urine pH 6.5 (4.6-8.0) Ur Specific [place] <=1.005 (1.005-1.030) Urine Protein Negative (Negative) Urine Glucose (UA) Negative (Negative) mg/dL Urine Ketones Negative (Negative) Urine Blood Small A (Negative) Urine Nitrite Positive A (Negative) Urine Bilirubin Negative (Negative) Urine Urobilinogen 1.0 A (0.2) mg/dL Ur Leukocyte Esterase Moderate A (Negative) U Hyaline Cast (Auto) NONE SEEN (0-2) /LPF Urine Microscopic RBC 0-2 (0-5) /HPF Urine Microscopic WBC >100 A (0-5) /HPF Ur Epithelial Cells None Seen (None Seen) /HPF Urine Bacteria Few A (None Seen) /HPF Urine Culture Reflexed YES (NO) - Progress Progress Note: 05/30/25 19:[address] Pavon, ct reviewed and interpreted by , Quang KEMP, outpatient follow up - Departure Departure Disposition: Home Clinical Impression: Dysuria Flank pain Qualifiers: Laterality: left Qualified Code(s): R10.A2 - Flank pain, left side Condition: Stable Critical Care Time: No Referrals: MIGDALIA SALINAS MD [Primary Care Provider, [facility]] - Follow up other Referral Note: 1-2 weeks Instructions: Urinary tract infection in adults - ED discharge instructions Additional Instructions: follow up to PCP in 1-2 weeks to have urine rechecked Prescriptions: Levofloxacin [Levaquin 500 MG Tablet] 500 mg PO DAILY #7 tablet
[2025-05-30 20:03] VITALS: BP 100/67; PULSE 60; RESP 16
--- NOTE | 2025-05-31 08:40 | XRAY ---
Indication: Left flank pain. Multiple contiguous axial images obtained through the abdomen and pelvis without contrast using renal stone protocol. Comparison: July 25, 2017. Lung bases remain clear. Heart not enlarged. Left mid kidney demonstrates new nonobstructing punctate calculus. No other calculus or evidence for obstructive uropathy in either system. Noncontrasted stomach and bowel loops appear nonobstructed. There is now mild diffuse scattered colonic fecal debris. Previous appendectomy. No free fluid/air. Remaining liver, gallbladder, pancreas, spleen, adrenal glands, kidneys, ureters, bladder, uterus, and aorta are unremarkable for noncontrast exam. Osseous structures intact. Impression: 1. New nonobstructing left renal punctate calculus and mild diffuse colonic fecal stasis. 2. Remaining CT abdomen/pelvis without contrast is negative.
== END 2025-05-30 20:38 | disposition home or self-care (01) ==
LOC: ED 16:29
DX: R30.0 Dysuria (principal); R10.A2 Flank pain, left side; Z79.899 Other long term (current) drug therapy